=== PATIENT | male | born 1935 | race Caucasian/White ===

== ENCOUNTER → 2017-04-24 09:39 | Outpatient (CLI) | payer MEDICARE, SELFPAY ==
[2017-04-24 12:22] LABS: Absolute Lymphocyte Count 0.87 X10^3/ul (0.83-4.51); Absolute Neutrophil Count 4.2 X10^3/uL (2.0-7.7); Basophil# 0.01 X10^3/uL; Basophil% 0.2 % (0-1); Eosinophil# 0.16 X10^3/uL; Eosinophils% 2.7 % (0-5); Hematocrit 38.9 % (40-54); Hemoglobin 12.1 g/dl (13.0-16.5); Lymphocyte # 0.87 X10^3/ul (4.0); Lymphocyte % 14.5 % (19-41); Mean Corp Hgb Conc 31.1 g/gl (32-36); Mean Corpuscular Hgb 29.7 pg (27.0-32.0); Mean Corpuscular Volume 95.6 fL (80-94); Mean Platelet Vol. 9.6 fl (6.2-12.0); Monocyte% 13.3 % (0-10); Neutrophil # 4.15 X10^3/uL (2.7-7.7); Neutrophil % 69.1 % (47-70); Platelet Count 188 K/mm3 (150-450); RBC Distribution Width CV 14.6 % (11.6-14.6); RBC Distribution Width SD 50.8 fl (35.1-43.9); Red Blood Count 4.07 M/mm3 (4.6-6.2)
[2017-04-24 12:33] LABS: POSITIVE COUNT NO; POSITIVE DIFFERENTIAL NO; POSITIVE MORPHOLOGY NO
[2017-04-24 12:57] LABS: Anion Gap 7 (5-15); BUN 20 mg/dL (7-18); BUN/Creat Ratio 17.9 RATIO (10-20); Calcium,Total 8.8 mg/dL (8.5-10.1); Chloride 100 mmol/L (98-107); Creatinine, Serum 1.12 mg/dL (0.70-1.30); EST Glomerular Filtration Rate 67 mL/min (>60); Est Glom Filt Rate - Afr Amer 81 mL/min (>60); Glucose 66 mg/dL (74-106); Potassium 3.6 mmol/L (3.5-5.1); Sodium Level 138 mmol/L (136-145); Thyroid Stim Hormone (TSH) 1.42 uIU/mL (0.358-3.74)
== END ==
PROVIDERS: Family Provider Family Medicine; PCP Family Medicine; Visit Provider Family Medicine
DX: I10 Essential (primary) hypertension (principal); K51.00 Ulcerative (chronic) pancolitis without complications
CPT/HCPCS: 36415; 80048; 84443; 85025

== ENCOUNTER → 2017-10-30 09:38 | Outpatient (CLI) | payer MEDICARE, SELFPAY ==
[2017-10-30 12:30] LABS: Anion Gap 8 (5-15); BUN 17 mg/dL (7-18); Calcium,Total 8.8 mg/dL (8.5-10.1); Chloride 103 mmol/L (98-107); Creatinine, Serum 1.06 mg/dL (0.70-1.30); EST Glomerular Filtration Rate 71 mL/min (>60); Est Glom Filt Rate - Afr Amer 86 mL/min (>60); Glucose 80 mg/dL (74-106); Sodium Level 139 mmol/L (136-145)
== END ==
PROVIDERS: Family Provider Family Medicine; PCP Family Medicine; Visit Provider Family Medicine
DX: I10 Essential (primary) hypertension (principal)
CPT/HCPCS: 36415; 80048

== ENCOUNTER 2018-10-16 12:22 | Emergency (ER) | payer MEDICARE, SELFPAY ==
[2018-10-16 12:23] VITALS: BP 145/91; PULSE 86; RESP 30; TEMP 36.4; O2SAT 98; BMI 25.1
--- NOTE | 2018-10-16 12:33 | RAD_ITS ---
STUDY: X-RAY - UNILATERAL RIBS ( RIGHT ) WITH CHEST REASON FOR EXAM: Male, 83 years old. Anterior right chest pain following a recent fall. TECHNIQUE - RIBS: 4 view(s) of the ribs. TECHNIQUE - CHEST: Single PA view of the chest. COMPARISON: None. FINDINGS - RIBS: Normal visualized ribs without a demonstrated fracture. FINDINGS - CHEST: The lungs are clear and expanded. There is no demonstrated pleural abnormality. Normal size heart. There are calcified mediastinal lymph nodes. Normal visualized pulmonary arteries. There is atherosclerotic calcification of the aortic arch with tortuosity. There are diffuse degenerative changes of the visualized thoracic spine. Dextroscoliosis. There is degenerative osteoarthritis of the bilateral shoulders. There is no demonstrated abnormality of the visualized soft tissue structures of the upper abdomen. RAD/Ribs Uni Min 3V w/PA Chest IMPRESSION: RIBS: Normal x-ray examination of the ribs. CHEST: No acute abnormality is seen. Electronically Signed: Morgan Alejandra, at 13:28 EDT , Service support ,
--- NOTE | 2018-10-16 12:49 | ED.VIS.GEN ---
History of Present Illness Chief Complaint: Chest Other Informant: Patient Onset: Yesterday Context: Sudden Onset Timing: Intermittent Current Severity: Moderate Maximum Severity: Moderate Narrative: The patient presents to the emergency department chest wall injury. The patient was in his normal state of health. He states that yesterday, he was riding his lawnmower. He states that he lurched forward and struck his right anterior lateral chest against the wheel. He states he had some mild pain at the time. Overnight, the pain got worse. He states if he does not twist, he has no pain. Sometimes when he tries to take a deep breath, he will have pain. He states as long as he is not moving, he is pain-free. He did not strike his head. He denies other injury. The patient is otherwise been in his normal state of health. Prior similar symptoms: No Recent Illness/Hospitalization: No Past Medical History - Allergies and Home Meds Allergies/Adverse Reactions: Allergies No Known Allergies Allergy (Verified 10/16/18 12:23) Primary Care Physician: Reyna Hoff MD [Primary Care Provider] - Prior records reviewed: Yes Past Medical History: - Surgical History: appendectomy, colectomy - Colectomy w/ ileostomy., total hip arthroplasty, tonsillectomy Smoking Status: Never smoker - Family History Maternal Family History: Reports: No pertinent history Paternal Family History: Reports: No pertinent history Review of Systems General: Denies: Chills, Fever, Sweats Eyes: Denies: Visual changes - bilaterally, Diplopia ENT: Denies: Rhinorrhea, Sore throat Cardiovascular: Reports: Chest pain. Denies: Palpitations Respiratory: Denies: Dyspnea, Cough, Dyspnea on exertion Gastrointestinal: Denies: Abdominal pain, Nausea, Vomiting, Diarrhea, Melena, Hematochezia Genitourinary: Denies: Dysuria, Hematuria, Frequency Musculoskeletal: Denies: Back pain, Extremity Pain Skin: Denies: Rash, Wounds Neurological: Denies: Headache, Weakness, Numbness Physical Exam Vital Signs/Narrative: Vital Signs Temp Pulse Resp BP Pulse Ox 10/16/18 12:23 97.5 F L 86 30 H 145/91 H 98 Inital Vital Signs reviewed: Yes General: Well nourished, Well developed, No Acute Distress Head: Normocephalic, Atraumatic Eyes: Perrl, EOMI ENT: Moist mucous membranes, No rhinorrhea Neck: Supple, Nontender Cardiovascular: Regular rate, Regular rhythm, No murmurs Respiratory: No distress, CTA bilaterally, Chest nontender Abdomen: Soft, Nontender, Nondistended, Normal bowel sounds Back: Nontender, Normal Inspection Extremities: Nontender, No edema Skin: Normal color, No rash Neurological: Alert, Oriented x3, Cranial nerves II-XII grossly intact, Normal Strength, Normal Sensation Psychological: Normal affect, Normal Mood Diagnostic/Tx/Re-eval Clinical Impression(s) from Imaging Studies Ribs w/Chest X-Ray 10/16/18 12:33 IMPRESSION: RIBS: Normal x-ray examination of the ribs. CHEST: No acute abnormality is seen. Electronically Signed: Morgan Justyn, at 13:28 EDT , Service support , - Medical Decision Making The patient's pain is mostly only when he moves. There is no pleuritic component to it. He is been taking Tylenol with some improvement. His chest wall shows no contusion, step-off and there is no crepitus. I did obtain plain films. There is no evidence of rib fracture or pneumothorax. On reevaluation, the patient is resting comfortably. He will continue Tylenol at home. He was counseled concerning symptoms and reasons to return. He will be discharged home. Impression 1. Chest wall contusion ED Disposition - Plan for ED Patient: Instructions: Chest Wall Contusion Referrals: Reyna Hoff MD [Primary Care Provider] -
== END 2018-10-16 13:48 | disposition home or self-care (01) ==
LOC: ED 12:54
PROVIDERS: Emergency Provider Emergency Medicine; Family Provider Family Medicine; PCP Family Medicine
DX: S20.211A Contusion of right front wall of thorax, initial encounter (principal); W22.8XXA Striking against or struck by other objects, initial encounter; Y93.I9 Activity, other involving external motion
CPT/HCPCS: 71101; 99282

== ENCOUNTER → 2018-10-30 10:29 | Outpatient (CLI) | payer MEDICARE, SELFPAY ==
[2018-10-16 12:23] VITALS: BMI 25.1
[2018-10-30 12:42] LABS: Anion Gap 5 (5-15); BUN 19 mg/dL (7-18); BUN/Creat Ratio 11.5 RATIO (10-20); Calcium,Total 8.5 mg/dL (8.5-10.1); Chloride 102 mmol/L (98-107); Cholesterol 139 mg/dL (200); Creatinine, Serum 1.65 mg/dL (0.70-1.30); EST Glomerular Filtration Rate 43 mL/min (>60); Est Glom Filt Rate - Afr Amer 51 mL/min (>60); Glucose 93 mg/dL (74-106); High Density Lipoprotein 54 mg/dL; Potassium 4.1 mmol/L (3.5-5.1); Sodium Level 135 mmol/L (136-145); Triglycerides 115 mg/dL; Very Low Density Lipoprotein 23 mg/dL (5-40)
== END ==
PROVIDERS: Family Provider Family Medicine; PCP Family Medicine; Referring Provider Family Medicine; Visit Provider Family Medicine
DX: I10 Essential (primary) hypertension (principal)
CPT/HCPCS: 36415; 80048; 80061

== ENCOUNTER → 2019-11-06 10:31 | Outpatient (CLI) | payer MEDICARE, SELFPAY ==
[2019-11-06 12:47] LABS: Anion Gap 4 (5-15); BUN 23 mg/dL (7-18); BUN/Creat Ratio 12.5 RATIO (10-20); Calcium,Total 8.7 mg/dL (8.5-10.1); Chloride 106 mmol/L (98-107); Cholesterol 161 mg/dL (200); Creatinine, Serum 1.84 mg/dL (0.70-1.30); EST Glomerular Filtration Rate 37 mL/min (>60); Est Glom Filt Rate - Afr Amer 45 mL/min (>60); Glucose 71 mg/dL (74-106); High Density Lipoprotein 60 mg/dL; Potassium 3.9 mmol/L (3.5-5.1); Sodium Level 138 mmol/L (136-145); Triglycerides 123 mg/dL; Very Low Density Lipoprotein 25 mg/dL (5-40)
== END ==
PROVIDERS: PCP Family Medicine; Referring Provider Family Medicine; Visit Provider Family Medicine
DX: I10 Essential (primary) hypertension (principal)
CPT/HCPCS: 36415; 80048; 80061

== ENCOUNTER 2019-12-26 10:43 | Inpatient (IN) | payer MEDICARE, SELFPAY ==
[2019-12-26] VITALS (8 sets, daily range): BP systolic 128–143; BP diastolic 65–81; PULSE 57–78; RESP 16–18; TEMP 36.2–36.7; O2SAT 96–99; BMI 24.4; BMI 22.8
--- NOTE | 2019-12-26 11:09 | ED.VISSUMM ---
- ER Visit Summary Date of Service: 12/26/19 Chief Complaint: Right flank pain History of Present Illness: The patient is a 84 M who presents with right flank pain that began yesterday. Patient states that this began rather suddenly. Patient states this feels similar to prior kidney stones. Patient states that he has had decreased urine output since last night as well. Patient describes his pain as cramping in his right flank and fullness in the suprapubic area. Patient states nothing makes it better or worse. Patient denies any dysuria or hematuria. Patient denies any fevers or chills. Patient admits to nausea but denies any vomiting. Physical Examination: Vital signs are stable. Patient is afebrile. Patient is in no acute distress. Oral mucosa is pink and moist. Neck is supple. Trachea is midline. There is no JVD noted. Heart was regular rate and rhythm. Lungs are clear and equal bilaterally. Abdomen is soft. Bowel sounds are normal. There is no tenderness. There is no rebound or guarding noted. There is some mild right CVA tenderness. Skin is warm dry. Cranial nerves II through XII are intact. There are no focal motor or sensory deficits noted. Extremities are intact. There is no calf tenderness or edema. Test Results: CBC shows a mild anemia with a hemoglobin of 11.9 hematocrit 37.6 basic metabolic profile showed an elevated BUN of 46 and a creatinine of 4.18. These were markedly increased from previous results. Urinalysis does not show any evidence of urinary tract infection. CT scan of the abdomen pelvis was obtained. There are multiple stones noted in the bladder. There are also stones noted in the inferior pole of the right kidney. There is right hydronephrosis. This was interpreted by the radiologist and reviewed by myself. Emergency Department Course and Treatment: Patient was given IV fluids, Zofran, and morphine. Patient was feeling better on reevaluation. Given the increase of his BUN and creatinine, the case was discussed with the hospitalist. Patient will be admitted for acute kidney injury. Patient understood and was agreeable with the plan. All questions were answered. Disposition: Admit to hospital Impression: 1. Acute kidney injury 2. Renal calculi This note was generated with [employer] software. It may contain incorrect words, spelling, and punctuation that were not noted in review of the chart prior to signing ED Disposition - Plan for ED Patient: Disposition: Acute Care Hospital [facility] Diagnosis: Acute kidney injury, Renal calculi Referrals: Reyna Hoff MD [Primary Care Provider] -
[2019-12-26] MEDS: Ondansetron 4 MG/2 ML Vial IV (11:32)
[2019-12-26] MEDS: Morphine 4 MG/ML Syringe IV (11:32)
[2019-12-26 12:00] LABS: Absolute Lymphocyte Count 0.63 X10^3/uL (0.83-4.51); Absolute Neutrophil Count 7.6 X10^3/uL (2.0-7.7); Eosinophil# 0.06 X10^3/uL; Eosinophils% 0.7 % (0-5); Hematocrit 37.6 % (40-54); Hemoglobin 11.9 g/dL (13.0-16.5); Lymphocyte # 0.63 X10^3/ul (4.0); Lymphocyte % 6.8 % (19-41); Mean Corp Hgb Conc 31.6 g/dL (32-36); Mean Corpuscular Hgb 31.4 pg (27.0-32.0); Mean Corpuscular Volume 99.2 fL (80-94); Mean Platelet Vol. 9.6 fl (6.2-12.0); Monocyte# 0.86 X10^3/uL; Monocyte% 9.3 % (0-10); NRBC Flagged by Analyzer 0 % (0-5); Neutrophil # 7.61 X10^3/uL (2.7-7.7); Neutrophil % 82.8 % (47-70); Platelet Count 158 K/mm3 (150-450); RBC Distribution Width SD 50.9 fl (35.1-43.9); Red Blood Count 3.79 M/mm3 (4.6-6.2); White Blood Count 9.2 K/mm3 (4.4-11.0)
[2019-12-26 12:17] LABS: ALB/GLOB Ratio 0.7 RATIO (0.9-2.4); AST(SGOT) 17 U/L (15-37); Alanine Aminotransfer ALT/SGPT 19 U/L (16-61); Albumin, Serum 3.5 g/dL (3.2-5.0); Alkaline Phosphatase 92 U/L (45-117); Anion Gap 4 (5-15); BUN 46 mg/dL (7-18); Calcium,Total 8.8 mg/dL (8.5-10.1); Chloride 110 mmol/L (98-107); Creatinine, Serum 4.18 mg/dL (0.70-1.30); EST Glomerular Filtration Rate 15 mL/min (>60); Est Glom Filt Rate - Afr Amer 18 mL/min (>60); Estimated Creatinine Clearance 14.01 ml/min; Glucose 104 mg/dL (74-106); Lipase 68 U/L (73-393); Potassium 4.9 mmol/L (3.5-5.1); Protein, Total 8.5 g/dL (6.4-8.2); Sodium Level 138 mmol/L (136-145)
--- NOTE | 2019-12-26 12:22 | CT_ITS ---
STUDY: CT ABDOMEN AND PELVIS WITHOUT CONTRAST REASON FOR EXAM: Male, 84 years old. RT SIDED FLANK PAIN WITH DECREASED URINATION RADIATION DOSAGE (If Supplied By Facility): CTDIvol = ( 8.11 ) mGy, DLP = ( 376.92 ) mGycm TECHNIQUE: Transaxial images were obtained from the dome of the diaphragm to the symphysis pubis without oral contrast, and without intravenous contrast. Sagittal and coronal images were reconstructed. Individualized dose optimization techniques were used for this CT. COMPARISON: Comparison is made with prior study dated 10/10/2014. FINDINGS: Calcified granuloma in the right lower lobe. Calcification of the mitral valve annulus. Normal liver. Normal gallbladder and extrahepatic biliary system. There are multiple benign calcified granulomata of the spleen. Normal pancreas. Normal bilateral adrenal glands. Moderate degree of right hydronephrosis with congestion of the right kidney. Nonobstructive calculi are seen in the mid posterior pole calyces of the right kidney. Multiple calculi are seen at the base of the bladder. There is moderate cortical atrophy of the left kidney, consistent with chronic medical renal disease. Moderate degree of left hydronephrosis. Normal visualized stomach. Normal small intestine. A colostomy is seen in the right lower quadrant. Stable postoperative changes in the presacral soft tissues. There is non-visualization of the appendix. There is diffuse atherosclerotic calcification of the abdominal aorta and its major visceral branches, without a demonstrated aneurysm. Normal inferior vena cava. There is retroperitoneal lymphadenopathy with enlarged nodes greater than 10-15mm in the short axis. Questionable soft tissue mass surrounding the left common iliac artery. Adenopathy should be ruled out. Multiple calculi are seen at the base of the bladder. There is a left-sided inguinal hernia containing adipose tissue. There are diffuse degenerative changes of the visualized lumbar spine. Levoscoliosis. Prior right total hip preplacement. CT/Abdomen/Pelvis without Cont IMPRESSION: Multiple calculi are seen at the base of the bladder. Atrophy of the left kidney. Bilateral hydronephrosis. Multiple nonobstructive calculi are seen in the right renal calyces. Status post colostomy and right lower quadrant. Retroperitoneal lymphadenopathy. Electronically Signed: Morgan Alejandra, at 12:45 EST , Service support ,
[2019-12-26 15:36] LABS: Bacteria 0 SEEN /hpf (None Seen); Mucous, Urine 0 SEEN /hpf (<or=2+)
[2019-12-26 15:40] LABS: Glucose, Dipstick Normal (Normal); Ketone-Dipstick Negative (Negative); Leukocyte Esterase-Dipstick 100 /ul (Negative); Nitrite-Dipstick Negative (Negative); Occult Blood-Urine 250 /ul (Negative); Protein-Dipstick 100 mg/dl (Negative); Urine Bilirubin Dipstick Negative (Negative); Urine Clarity Cloudy (Clear); Urine Urobilinogen Normal (Normal)
[2019-12-26 15:43] LABS: Color, Urine SEE COMMENT BELOW (Yellow)
[2019-12-26 15:56] LABS: Red Blood Cells-Urine > 100 SEEN /hpf (0-5); Squamous Epithelial Cells - UA 0-5 SEEN /hpf (0-5); White Blood Cells 0-5 SEEN /hpf (0-5)
--- NOTE | 2019-12-26 16:47 | HP.PCM_ITS ---
<Cherry Fraire [employer] - Last Filed: 12/26/19 17:22> Problem List (1) Acute kidney injury Status: Acute (2) Renal calculi Status: Acute (3) Ulcerative colitis Status: Chronic (4) Hypertension Status: Chronic History of Present Illness Date of Admission: 12/26/19 Chief Complaint: Flank pain, difficulty emptying bladder. The patient is a 84 year old M who presents emergency room due to right flank pain and difficulty emptying her bladder. Patient states this began last night around 9 PM. He states he would begin to void and it would suddenly stop. He also reports right-sided flank pain and nausea without emesis. Denies fever, chills. Denies dysuria. Denies history of difficulty voiding. Denies history of kidney stones. He has a past medical history of ulcerative colitis status post colectomy, hypertension. He denies upper respiratory symptoms or other recent illness. Past Medical History Past Medical History (Chronic Problems): Chronic Problems Ulcerative colitis (Chronic) Hypertension (Chronic) Allergies No Known Allergies Allergy (Verified 12/26/19 10:44) Home Medications: Ambulatory Orders Medication Instructions Recorded Verapamil HCl [Verapamil ER] 180 mg PO DAILY 05/30/14 Aspirin [Adult Aspirin Regimen] 91 mg PO DAILY 10/16/18 Surgical History: appendectomy, colectomy - Colectomy w/ ileostomy., total hip arthroplasty - Right, tonsillectomy, - - Hernia repair Psychiatric History: No pertinent psych hx Lives: Spouse/ Significant Other Smoking Status: Never smoker Alcohol: None Drugs: None - *Family History Maternal History Items: - - Denies known maternal medical history. Reports she lived into her 90s. Paternal History Items: - - Denies known paternal medical history reports he lived into his 90s. Review of Systems Constitutional: Denies: Chills, Fever, Weight Change HEENT: Denies: Head Aches, Sinus Congestion, Sinus Drainage Cardiovascular: Denies: Chest Pain, Palpitations Respiratory: Denies: Cough, Shortness of breath at rest, Sputum production Gastrointestinal: Reports: - - Colostomy in place. Denies: Abdominal Pain, Nausea, Vomiting Genitourinary: Reports: - - Incomplete bladder emptying. Denies: Dysuria, Hematuria, Incontinence, Urgency Musculoskeletal: Reports: - - Right flank pain. Denies: Joint Pain, Joint Tenderness Skin: Denies: Rash, Wounds Neurological: Denies: Numbness, Tingling, Focal weakness Psychiatric: Denies: Anxiety, Depression, Homicidal Ideations, Suicidal Ideations Hematologic/ Lymphatic: Denies: Easy Bruising, Easy Bleeding VTE Information - Inpt Only VTE Present on Admission: No VTE Mechan Device Prophylaxis: None VTE Pharm Prophylaxis ordered?: Yes Patient Problems: Active and Suspected Problems Acute kidney injury (Acute) Renal calculi (Acute) Bladder stones (Acute) - Physical Exam Vitals/I&O's: Vital Signs Temp Pulse Resp BP Pulse Ox 97.1 F L 72 16 138/81 H 98 12/26/19 10:46 12/26/19 15:15 12/26/19 15:15 12/26/19 15:15 12/26/19 15:15 Oxygen Delivery Method Room Air Weight: 175 lb Body Mass Index (BMI) 24.4 Intake and Output for Last 24 Hours 12/24/19 12/25/19 12/26/19 23:59 23:59 23:59 Intake Total 500 / 500 Balance 500 / 500 General: Alert, Oriented x3, Cooperative HEENT: Atraumatic, PERRLA, EOMI, Normocephalic Neck: Supple, No JVD, Negative Carotid Bruits Lungs: Clear to auscultation, Normal air movement Cardiovascular: Regular rate, No murmurs Abdomen: Bowel Sounds Present, Soft, Non Tender, Non-Distended, - - right flank tenderness Extremities: No clubbing, No cyanosis, No edema, Capillary Refill Less than 3 Seconds Skin: No rashes, No breakdown Musculoskeletal: No Tenderness to Palpation of Joints or Extremities Neurological: Cranial nerves II-XII grossly intact, Neuro grossly intact Psych/Mental Status: Normal Affect, Appropriate Laboratory Results 12/26/19 11:50: WBC 9.2, RBC 3.79 L, Hgb 11.9 L, Hct 37.6 L, MCV 99.2 H, MCH 31.4, MCHC 31.6 L, RDW Std Deviation 50.9 H, RDW Coeff of Jeremiah 14.0, Plt Count 158, MPV 9.6, Immature Gran % (Auto) 0.400, Neut % (Auto) 82.8 H, Lymph % (Auto) 6.8 L, [place] % (Auto) 9.3, Eos % (Auto) 0.7, Baso % (Auto) 0.0, Absolute Neuts (auto) 7.6, Absolute Lymphs (auto) 0.63 L, Nucleated RBC % 0 12/26/19 11:50: Sodium 138, Potassium 4.9, Chloride 110 H, Carbon Dioxide 24.0, Anion Gap 4 L, BUN 46 H, Creatinine 4.18 H, Estim Creat Clear Calc 14.01, Est GFR (MDRD) Af Amer 18 L, Est GFR (MDRD) Non-Af 15 L, BUN/Creatinine Ratio 11.0, Glucose 104, Calcium 8.8, Total Bilirubin 0.60, AST 17, ALT 19, Alkaline Phosphatase 92, Total Protein 8.5 H, Albumin 3.5, Globulin 5.0 H, Albumin/Globulin Ratio 0.7 L, Lipase 68 L 12/26/19 15:30: Urine Color SEE COMMENT BELOW, Urine Clarity Cloudy, Urine pH 5.0, Ur Specific [place] 1.010, Urine Protein 100 H, Urine Glucose (UA) Normal, Urine Ketones Negative, Urine Occult Blood 250 H, Urine Nitrite Negative, Urine Bilirubin Negative, Urine Urobilinogen Normal, Ur Leukocyte Esterase 100 H, Urine RBC > 100 SEEN, Urine WBC 0-5 SEEN, Ur Squamous Epith Cells 0-5 SEEN, Urine Bacteria 0 SEEN, Urine Mucus 0 SEEN Assessment/Plan All Active Problems Acute kidney injury (Acute) Renal calculi (Acute) Bladder stones (Acute) 1. Acute kidney injury suspect post renal secondary to renal calculi resulting in bilateral hydronephrosis-CT reports multiple stones in the bladder as well. UA unremarkable. IV fluids. As needed pain regimen. Trend BMP. Consult urology. 2. Retroperitoneal lymphadenopathy/questionable soft tissue mass left common iliac artery-noted on CT. Recommend outpatient follow-up for further evaluation/surveillance. 3. Ulcerative colitis status post colectomy-colostomy in place. 4. Hypertension-continue verapamil regimen. DVT prophylaxis-heparin subcu This patient was seen by JUAN RAMON Nayak under the supervision of Dr. Evans. <Betty Evans - Last Filed: 12/26/19 19:07> History of Present Illness The patient is a 84 year old M [] Past Medical History Allergies No Known Allergies Allergy (Verified 12/26/19 10:44) - Physical Exam Vitals/I&O's: Vital Signs Temp Pulse Resp BP Pulse Ox 98.1 F 73 18 140/71 H 99 12/26/19 17:59 12/26/19 18:15 12/26/19 17:59 12/26/19 17:59 12/26/19 17:59 Oxygen Delivery Method Room Air Weight: 164 lb 3.2 oz Body Mass Index (BMI) 22.8 Intake and Output for Last 24 Hours 12/24/19 12/25/19 12/26/19 23:59 23:59 23:59 Intake Total 500 / 500 Balance 500 / 500 Laboratory Results 12/26/19 11:50: WBC 9.2, RBC 3.79 L, Hgb 11.9 L, Hct 37.6 L, MCV 99.2 H, MCH 31.4, MCHC 31.6 L, RDW Std Deviation 50.9 H, RDW Coeff of Jeremiah 14.0, Plt Count 158, MPV 9.6, Immature Gran % (Auto) 0.400, Neut % (Auto) 82.8 H, Lymph % (Auto) 6.8 L, [place] % (Auto) 9.3, Eos % (Auto) 0.7, Baso % (Auto) 0.0, Absolute Neuts (auto) 7.6, Absolute Lymphs (auto) 0.63 L, Nucleated RBC % 0 12/26/19 11:50: Sodium 138, Potassium 4.9, Chloride 110 H, Carbon Dioxide 24.0, Anion Gap 4 L, BUN 46 H, Creatinine 4.18 H, Estim Creat Clear Calc 14.01, Est GFR (MDRD) Af Amer 18 L, Est GFR (MDRD) Non-Af 15 L, BUN/Creatinine Ratio 11.0, Glucose 104, Calcium 8.8, Total Bilirubin 0.60, AST 17, ALT 19, Alkaline Phosphatase 92, Total Protein 8.5 H, Albumin 3.5, Globulin 5.0 H, Al bumin/Globulin Ratio 0.7 L, Lipase 68 L 12/26/19 15:30: Urine Color SEE COMMENT BELOW, Urine Clarity Cloudy, Urine pH 5.0, Ur Specific [place] 1.010, Urine Protein 100 H, Urine Glucose (UA) Normal, Urine Ketones Negative, Urine Occult Blood 250 H, Urine Nitrite Negative, Urine Bilirubin Negative, Urine Urobilinogen Normal, Ur Leukocyte Esterase 100 H, Urine RBC > 100 SEEN, Urine WBC 0-5 SEEN, Ur Squamous Epith Cells 0-5 SEEN, Urine Bacteria 0 SEEN, Urine Mucus 0 SEEN Current Medications Acetaminophen (Acetaminophen 325 Mg Tablet) 650 mg PO Q6H PRN PRN PRN Reason: Pain Score 1-10/Temp > 100.7 F Sodium Chloride () 1,000 mls @ 125 mls/hr IV .Q8H [facility] Last Admin: 12/26/19 18:28 Dose: 125 mls/hr Documented by: Morphine Sulfate (Morphine 2 Mg/Ml Syringe) 2 mg IV Q3H PRN PRN PRN Reason: Pain Score 6-10 Ondansetron HCl (Ondansetron 4 Mg/2 Ml Vial) 4 mg IV Q8H PRN PRN PRN Reason: NAUSEA/VOMITING Oxycodone HCl (Oxycodone 5 Mg Tablet) 5 mg PO Q4H PRN PRN PRN Reason: Pain Score 4-5 Verapamil HCl (Verapamil Sr 180 Mg Capsule) 180 mg PO DAILY [facility] Assessment/Plan Patient seen by Cherry Fraire NP-see under my supervision Patient is an 84-year-old male admitted through the ED on 12/26/2019 with a complaint of right flank pain which started the night before admission. He also had difficulty emptying his bladder. He also had associated nausea but no vomiting and denied any fever or chills or dysuria though he said when he came into the ED, he started having dysuria. He also had difficulty emptying his bladder. He has never had a history of kidney stones. He does have a past medical history of ulcerative colitis s/p colectomy with a colostomy bag as well as hypertension. Review of stems otherwise negative. In the ED, vitals showed temperature of 97.1 with blood pressure 140/71, pulse rate of 73 and respiratory rate of 18. He was saturating at 99% on room air. Chemistry showed creatinine of 4.18 with a baseline creatinine of 1.84; lactic acid was 68. CBC showed hemoglobin of 11.9 with WBC of 9.2 and platelets of 158. ET of the abdomen and pelvis showed multiple calculi seen at the base of the bladder and a tropia of the left kidney with bilateral hydronephrosis and multiple nonobstruc tive calculi seen in the right renal calyces and retroperitoneal lymphadenopathy. He has been admitted to be managed for HENOK on CKD stage III and bilateral hydronephrosis likely due to kidney stones. O/E: Vital Signs Temp Pulse Resp BP Pulse Ox 98.1 F 73 18 140/71 H 99 12/26/19 17:59 12/26/19 18:15 12/26/19 17:59 12/26/19 17:59 12/26/19 17:59 General: Alert, Oriented x3, Cooperative HEENT: Atraumatic, PERRLA, EOMI, Normocephalic Neck: Supple, No JVD, Negative Carotid Bruits Lungs: Clear to auscultation, Normal air movement Cardiovascular: Regular rate, No murmurs Abdomen: Bowel Sounds Present, Soft, Non Tender, Non-Distended, - - no CVA tenderness, Extremities: No clubbing, No cyanosis, No edema, Capillary Refill Less than 3 Seconds Skin: No rashes, No breakdown Musculoskeletal: No Tenderness to Palpation of Joints or Extremities Neurological: Cranial nerves II-XII grossly intact, Neuro grossly intact Psych/Mental Status: Normal Affect, Appropriate Plan is to hydrate with IV fluids for HENOK on CKD. Consult urology. IV morphine as needed. IV Zofran as needed urology consulted. If creatinine does not trend down, will consult nephrology. HENOK on CKD stage III is post renal from obstructive uropathy. Per urology, for cystoscopy tomorrow with laser of bladder stone, ureteroscopy and possible prostate or bladder surgery. Rest as per Cherry Fraire NP-C's notes which I reviewed and endorsed. Inpatient E&M: 16166 Init Hosp L3
--- NOTE | 2019-12-26 18:27 | PCM.CONS.U ---
Problem List (1) Acute kidney injury Status: Acute (2) Bladder stones Status: Acute Reason for Consult Date of Consultation: 12/26/19 Reason for Consultation: bladder stones retention. History of Present Illness: The patient is a 84 year old M who presents emergency room due to right flank pain and difficulty emptying her bladder. Patient states this began last night around 9 PM. He states he would begin to void and it would suddenly stop. He also reports right-sided flank pain and nausea without emesis. Denies fever, chills. Denies dysuria. Denies history of difficulty voiding. Denies history of kidney stones. He has a past medical history of ulcerative colitis status post colectomy, hypertension. He denies upper respiratory symptoms or other recent illness. Past Medical History Past Medical History (Chronic Problems): Chronic Problems Ulcerative colitis (Chronic) Hypertension (Chronic) Allergies No Known Allergies Allergy (Verified 12/26/19 10:44) Home Medications: Ambulatory Orders Medication Instructions Recorded Verapamil HCl [Verapamil ER] 180 mg PO DAILY 05/30/14 Aspirin [Adult Aspirin Regimen] 91 mg PO DAILY 10/16/18 Surgical History: appendectomy, colectomy - Colectomy w/ ileostomy., total hip arthroplasty - Right, tonsillectomy, - - Hernia repair Psychiatric History: No pertinent psych hx Lives: Spouse/ Significant Other Smoking Status: Never smoker Alcohol: None Drugs: None - *Family History Maternal History Items: - - Denies known maternal medical history. Reports she lived into her 90s. Paternal History Items: - - Denies known paternal medical history reports he lived into his 90s. Review of Systems Constitutional: Denies: Chills, Fever, Weight Change HEENT: Denies: Head Aches, Sinus Congestion, Sinus Drainage Cardiovascular: Denies: Chest Pain, Palpitations Respiratory: Denies: Cough, Shortness of breath at rest, Sputum production Gastrointestinal: Denies: Abdominal Pain, Nausea, Vomiting Genitourinary: Denies: Dysuria Musculoskeletal: Denies: Joint Pain, Joint Tenderness Skin: Denies: Rash, Wounds Neurological: Denies: Numbness, Tingling, Focal weakness Psychiatric: Denies: Anxiety, Depression, Homicidal Ideations, Suicidal Ideations Hematologic/ Lymphatic: Denies: Easy Bruising, Easy Bleeding Physical Exam - Physical Exam Vital Signs Temp 98.1 F 12/26/19 17:59 Pulse 73 12/26/19 17:59 Resp 18 12/26/19 17:59 BP 140/71 H 12/26/19 17:59 Pulse Ox 99 12/26/19 17:59 Intake & Output 12/24/19 12/25/19 12/26/19 23:59 23:59 23:59 Intake Total 500 / 500 Balance 500 / 500 Weight: 74.48 kg Intake: Intake, IV Amount 500 / 500 0.9% Normal Saline 500 ML @ 500 / 500 1000 mls/hr IV .Q30M [facility] Rx#: [id number] General: Alert, Oriented x3 HEENT: Atraumatic Oral: Moist Mucosa Neck: Supple Lungs: No rhonchi Cardiovascular: Regular Rhythm Abdomen: Soft Laboratory Tests Past 24 Hrs 12/26/19 12/26/19 12/26/19 11:50 11:50 15:30 WBC 9.2 RBC 3.79 L Hgb 11.9 L Hct 37.6 L MCV 99.2 H MCH 31.4 MCHC 31.6 L RDW Std Deviation 50.9 H RDW Coeff of Jeremiah 14.0 Plt Count 158 MPV 9.6 Immature Gran % (Auto) 0.400 Neut % (Auto) 82.8 H Lymph % (Auto) 6.8 L [place] % (Auto) 9.3 Eos % (Auto) 0.7 Baso % (Auto) 0.0 Absolute Neuts (auto) 7.6 Absolute Lymphs (auto) 0.63 L Nucleated RBC % 0 Sodium 138 Potassium 4.9 Chloride 110 H Carbon Dioxide 24.0 Anion Gap 4 L BUN 46 H Creatinine 4.18 H Estim Creat Clear Calc 14.01 Est GFR (MDRD) Af Amer 18 L Est GFR (MDRD) Non-Af 15 L BUN/Creatinine Ratio 11.0 Glucose 104 Calcium 8.8 Total Bilirubin 0.60 AST 17 ALT 19 Alkaline Phosphatase 92 Total Protein 8.5 H Albumin 3.5 Globulin 5.0 H Albumin/Globulin Ratio 0.7 L Lipase 68 L Urine Color SEE COMMENT BELOW Urine Clarity Cloudy Urine pH 5.0 Ur Specific [place] 1.010 Urine Protein 100 H Urine Glucose (UA) Normal Urine Ketones Negative Urine Occult Blood 250 H Urine Nitrite Negative Urine Bilirubin Negative Urine Urobilinogen Normal Ur Leukocyte Esterase 100 H Urine RBC > 100 SEEN Urine WBC 0-5 SEEN Ur Squamous Epith Cells 0-5 SEEN Urine Bacteria 0 SEEN Urine Mucus 0 SEEN Assessment/Plan All Active Problems Acute kidney injury (Acute) Renal calculi (Acute) Bladder stones (Acute) 84 yo male with bladder stone incomplete empying possible renal obstuction difficutlut to tell on CT scan plan for Surgery tomorrow for cysto laser bladder stone, ureteroscopy possible prostate or bladder surgery
[2019-12-26] MEDS: 0.9% Normal Saline 1,000 ML 125 ML IV (18:28)
[2019-12-26] MEDS: 0.9% Saline Lock 10 ML Syringe IV (18:28)
[2019-12-26] MEDS: oxyCODONE 5 MG Tablet PO (21:45)
[2019-12-27] VITALS (17 sets, daily range): BP systolic 117–146; BP diastolic 55–82; PULSE 66–85; RESP 14–20; TEMP 36.6–37.4; O2SAT 94–100; BMI 22.8; BMI 24.4
[2019-12-27] MEDS: 0.9% Normal Saline 1,000 ML 125 ML IV ×3 (02:13→17:10)
[2019-12-27] MEDS: Morphine 2 MG/ML Syringe IV ×2 (02:14→07:46)
[2019-12-27 07:44] LABS: Absolute Lymphocyte Count 0.78 X10^3/uL (0.83-4.51); Absolute Neutrophil Count 7.6 X10^3/uL (2.0-7.7); Basophil# 0.01 X10^3/uL; Basophil% 0.1 % (0-1); Eosinophil# 0.04 X10^3/uL; Eosinophils% 0.4 % (0-5); Hematocrit 35.5 % (40-54); Hemoglobin 10.8 g/dL (13.0-16.5); Lymphocyte # 0.78 X10^3/ul (4.0); Lymphocyte % 8.1 % (19-41); Mean Corp Hgb Conc 30.4 g/dL (32-36); Mean Corpuscular Hgb 30.8 pg (27.0-32.0); Mean Corpuscular Volume 101.1 fL (80-94); Mean Platelet Vol. 9.6 fl (6.2-12.0); Monocyte# 1.23 X10^3/uL; Monocyte% 12.7 % (0-10); NRBC Flagged by Analyzer 0 % (0-5); Neutrophil # 7.55 X10^3/uL (2.7-7.7); Neutrophil % 78.2 % (47-70); Platelet Count 138 K/mm3 (150-450); RBC Distribution Width CV 14.1 % (11.6-14.6); RBC Distribution Width SD 52.1 fl (35.1-43.9); Red Blood Count 3.51 M/mm3 (4.6-6.2); White Blood Count 9.7 K/mm3 (4.4-11.0)
[2019-12-27 07:57] LABS: Anion Gap 4 (5-15); BUN 54 mg/dL (7-18); BUN/Creat Ratio 9.8 RATIO (10-20); Calcium,Total 7.9 mg/dL (8.5-10.1); Chloride 110 mmol/L (98-107); Creatinine, Serum 5.49 mg/dL (0.70-1.30); EST Glomerular Filtration Rate 11 mL/min (>60); Est Glom Filt Rate - Afr Amer 13 mL/min (>60); Estimated Creatinine Clearance 10.55 ml/min; Glucose 112 mg/dL (74-106); Sodium Level 136 mmol/L (136-145)
--- NOTE | 2019-12-27 10:20 | CASEMGMT ---
RN PRAVEEN Face to Face with patient for initial transition planning/care coordination assessment. RN CM introduced self and role at [facility]. Patient lying in bed, alert and oriented. Patient willing to participate in assessment and is able to answer all questions appropriately. Care providers, pharmacy, and demographics verified. Patient wishes to discharge home, denies need for home health at this time. Patient states he has no further needs or concerns at this time. CM to follow for discharge planning needs that may arise. PCP: Luis Eduardo Specialists: none Preferred Pharmacy: [facility] Insurance: [facility] Prescription Benefit: yes Living Will/HPOA: none LNOK: Living Arrangements: Patient lives with in a 2 story home with bed and bath to enter the home. 4 steps to enter the home. Patient states he is independent Transportation: self/ DME/HHC: Patient states he has cane, walker, and nebulizer at home. Disposition Plan: Patient to discharge home with family support and follow-up plans in place. Alysha PATEL, RN, CM
--- NOTE | 2019-12-27 10:39 | PN_ITS ---
<JunoCherry GREEN JOBS TRAINER - Last Filed: 12/27/19 10:47> Patient Problems: Active and Suspected Problems Acute kidney injury (Acute) Renal calculi (Acute) Bladder stones (Acute) Subjective: Patient seen and examined. Reports continued intermittent difficulty emptying bladder. Continues to have intermittent right flank pain as well. Denies dysuria. Denies fever, chills. Denies nausea. Per urology note, plan for cystoscopy today with laser bladder stone. - Physical Exam Vitals/I&O's: Vital Signs Temp Pulse Resp BP Pulse Ox 97.8 F 67 18 117/62 97 12/27/19 09:50 12/27/19 09:50 12/27/19 09:50 12/27/19 09:50 12/27/19 09:50 Oxygen Delivery Method Room Air Weight: 164 lb 3.205 oz Body Mass Index (BMI) 22.8 Intake and Output for Last 24 Hours 12/25/19 12/26/19 12/27/19 23:59 23:59 23:59 Intake Total 500 / 1200 2618.75 / 2618.75 Output Total 875 / 875 Balance 500 / 750 1743.75 / 1743.75 General: Alert, Oriented x3, Cooperative HEENT: Atraumatic, PERRLA, EOMI, Normocephalic Neck: Supple, No JVD, Negative Carotid Bruits Lungs: Clear to auscultation, Normal air movement Cardiovascular: Regular rate, No murmurs Abdomen: Bowel Sounds Present, Soft, Non Tender, Non-Distended Extremities: No clubbing, No cyanosis, No edema, Capillary Refill Less than 3 Seconds Skin: No rashes, No breakdown Musculoskeletal: No Tenderness to Palpation of Joints or Extremities Neurological: Cranial nerves II-XII grossly intact, Neuro grossly intact Psych/Mental Status: Normal Affect, Appropriate Microbiology Past 72 Hours 12/27/19 07:50 Mucosa - Nose SARS-CoV-2 Antigen (Rapid) - Final Laboratory Results 12/26/19 11:50: WBC 9.2, RBC 3.79 L, Hgb 11.9 L, Hct 37.6 L, MCV 99.2 H, MCH 31.4, MCHC 31.6 L, RDW Std Deviation 50.9 H, RDW Coeff of Jeremiah 14.0, Plt Count 158, MPV 9.6, Immature Gran % (Auto) 0.400, Neut % (Auto) 82.8 H, Lymph % (Auto) 6.8 L, [place] % (Auto) 9.3, Eos % (Auto) 0.7, Baso % (Auto) 0.0, Absolute Neuts (auto) 7.6, Absolute Lymphs (auto) 0.63 L, Nucleated RBC % 0 12/26/19 11:50: Sodium 138, Potassium 4.9, Chloride 110 H, Carbon Dioxide 24.0, Anion Gap 4 L, BUN 46 H, Creatinine 4.18 H, Estim Creat Clear Calc 14.01, Est GFR (MDRD) Af Amer 18 L, Est GFR (MDRD) Non-Af 15 L, BUN/Creatinine Ratio 11.0, Glucose 104, Calcium 8.8, Total Bilirubin 0.60, AST 17, ALT 19, Alkaline Phosphatase 92, Total Protein 8.5 H, Albumin 3.5, Globulin 5.0 H, Albumin/Globulin Ratio 0.7 L, Lipase 68 L 12/26/19 15:30: Urine Color SEE COMMENT BELOW, Urine Clarity Cloudy, Urine pH 5.0, Ur Specific [place] 1.010, Urine Protein 100 H, Urine Glucose (UA) Normal, Urine Ketones Negative, Urine Occult Blood 250 H, Urine Nitrite Negative, Urine Bilirubin Negative, Urine Urobilinogen Normal, Ur Leukocyte Esterase 100 H, Urine RBC > 100 SEEN, Urine WBC 0-5 SEEN, Ur Squamous Epith Cells 0-5 SEEN, Urine Bacteria 0 SEEN, Urine Mucus 0 SEEN 12/27/19 07:33: WBC 9.7, RBC 3.51 L, Hgb 10.8 L, Hct 35.5 L, MCV 101.1 H, MCH 30.8, MCHC 30.4 L, RDW Std Deviation 52.1 H, RDW Coeff of Jeremiah 14.1, Plt Count 138 L, MPV 9.6, Immature Gran % (Auto) 0.500, Neut % (Auto) 78.2 H, Lymph % (Auto) 8.1 L, [place] % (Auto) 12.7 H, Eos % (Auto) 0.4, Baso % (Auto) 0.1, Absolute Neuts (auto) 7.6, Absolute Lymphs (auto) 0.78 L, Nucleated RBC % 0 12/27/19 07:33: Sodium 136, Potassium 5.0, Chloride 110 H, Carbon Dioxide 22.0, Anion Gap 4 L, BUN 54 H, Creatinine 5.49 H, Estim Creat Clear Calc 10.55, Est GFR (MDRD) Af Amer 13 L, Est GFR (MDRD) Non-Af 11 L, BUN/Creatinine Ratio 9.8 L, Glucose 112 H, Calcium 7.9 L Current Medications Acetaminophen (Acetaminophen 325 Mg Tablet) 650 mg PO Q6H PRN PRN PRN Reason: Pain Score 1-10/Temp > 100.7 F Sodium Chloride () 1,000 mls @ 125 mls/hr IV .Q8H [facility] Last Admin: 12/27/19 09:49 Dose: 125 mls/hr Documented by: Morphine Sulfate (Morphine 2 Mg/Ml Syringe) 2 mg IV Q3H PRN PRN PRN Reason: Pain Score 6-10 Last Admin: 12/27/19 07:46 Dose: 2 mg Documented by: Ondansetron HCl (Ondansetron 4 Mg/2 Ml Vial) 4 mg IV Q8H PRN PRN PRN Reason: NAUSEA/VOMITING Oxycodone HCl (Oxycodone 5 Mg Tablet) 5 mg PO Q4H PRN PRN PRN Reason: Pain Score 4-5 Last Admin: 12/26/19 21:45 Dose: 5 mg Documented by: Verapamil HCl (Verapamil Sr 180 Mg Capsule) 180 mg PO DAILY [facility] Medical Necessity - Tobacco Use Smoking Status: Never smoker Assessment/Plan All Active Problems Acute kidney injury (Acute) Renal calculi (Acute) Bladder stones (Acute) 1. Acute kidney injury, post renal/obstructive uropathy secondary to renal calculi/bladder stones resulting in bilateral hydronephrosis-CT reports multiple stones in the bladder as well. UA unremarkable. IV fluids. As needed pain regimen. Trend BMP. Urology consulted. Plan for cystoscopy with laser bladder stone, ureteroscopy and possible prostate or bladder surgery. Consult nephrology given worsening renal function. 2. Retroperitoneal lymphadenopathy/questionable soft tissue mass left common iliac artery-noted on CT. Recommend outpatient follow-up for further evaluation/surveillance. 3. Ulcerative colitis status post colectomy-colostomy in place. 4. Hypertension-continue verapamil regimen. DVT prophylaxis-SCDs This patient was seen by JUAN RAMON Nayak under the supervision of Dr. Christianson. <Eliceo Christianson F - Last Filed: 12/27/19 19:39> - Physical Exam Vitals/I&O's: Vital Signs Temp Pulse Resp BP Pulse Ox 98.3 F 68 16 121/73 H 97 12/27/19 18:05 12/27/19 18:05 12/27/19 19:18 12/27/19 18:05 12/27/19 18:05 Oxygen Flow Rate (L/min) 4 Oxygen Delivery Method Room Air Weight: 164 lb 3.205 oz Body Mass Index (BMI) 22.8 Intake and Output for Last 24 Hours 12/25/19 12/26/19 12/27/19 23:59 23:59 23:59 Intake Total 500 / 1200 4128.33 / 4128.33 Output Total 1999 / 1999 Balance 500 / 750 2128.33 / 2128.33 Microbiology Past 72 Hours 12/27/19 07:50 Mucosa - Nose SARS-CoV-2 Antigen (Rapid) - Final Laboratory Results 12/27/19 07:33: WBC 9.7, RBC 3.51 L, Hgb 10.8 L, Hct 35.5 L, MCV 101.1 H, MCH 30.8, MCHC 30.4 L, RDW Std Deviation 52.1 H, RDW Coeff of Jeremiah 14.1, Plt Count 138 L, MPV 9.6, Immature Gran % (Auto) 0.500, Neut % (Auto) 78.2 H, Lymph % (Auto) 8.1 L, [place] % (Auto) 12.7 H, Eos % (Auto) 0.4, Baso % (Auto) 0.1, Absolute Neuts (auto) 7.6, Absolute Lymphs (auto) 0.78 L, Nucleated RBC % 0 12/27/19 07:33: Sodium 136, Potassium 5.0, Chloride 110 H, Carbon Dioxide 22.0, Anion Gap 4 L, BUN 54 H, Creatinine 5.49 H, Estim Creat Clear Calc 10.55, Est GFR (MDRD) Af Amer 13 L, Est GFR (MDRD) Non-Af 11 L, BUN/Creatinine Ratio 9.8 L, Glucose 112 H, Calcium 7.9 L Current Medications Acetaminophen (Acetaminophen 325 Mg Tablet) 650 mg PO Q6H PRN PRN PRN Reason: Pain Score 1-10/Temp > 100.7 F Calamine/Phenol (Menthol/Lanolin/Calamine/Znox 113 Gm Tube) 1 applic TOPICAL TID [facility]; Protocol Last Admin: 12/27/19 16:06 Dose: 1 applicatio Documented by: Sodium Chloride () 1,000 mls @ 125 mls/hr IV .Q8H [facility] Last Infusion: 12/27/19 18:08 Dose: 125 mls/hr Documented by: Morphine Sulfate (Morphine 2 Mg/Ml Syringe) 2 mg IV Q3H PRN PRN PRN Reason: Pain Score 6-10 Last Admin: 12/27/19 07:46 Dose: 2 mg Documented by: Ondansetron HCl (Ondansetron 4 Mg/2 Ml Vial) 4 mg IV Q8H PRN PRN PRN Reason: NAUSEA/VOMITING Oxycodone HCl (Oxycodone 5 Mg Tablet) 5 mg PO Q4H PRN PRN PRN Reason: Pain Score 4-5 Last Admin: 12/26/19 21:45 Dose: 5 mg Documented by: Verapamil HCl (Verapamil Sr 180 Mg Capsule) 180 mg PO DAILY [facility] Last Admin: 12/27/19 15:28 Dose: 180 mg Documented by: Addendum: Dr. Christianson I personally examined the patient and reviewed the chart. I agree with the above. 84-year-old male presenting from home with flank pain and difficulty emptying his bladder. He was found to have multiple ureteral stones and underwent intervention today by urology. He had bilateral stents placed today. Creatinine did rise a little bit today however now that he is postop, would anticipate improvement in his creatinine tomorrow. Inpatient E&M: [id number] [facility] Hosp L2
--- NOTE | 2019-12-27 11:01 | EKG12_ITS ---
Test Reason : PRE OP Blood Pressure : / mmHG Vent. Rate : 065 BPM Atrial Rate : 065 BPM P-R Int : 172 ms QRS Dur : 106 ms QT Int : 410 ms P-R-T Axes : -04 -33 026 degrees QTc Int : 426 ms Sinus rhythm with Premature atrial complexes Left axis deviation Abnormal ECG When compared with ECG of 23-JUN-2011 13:27, Premature atrial complexes are now Present Confirmed by JEANNA VILLARREAL, JUDY ([id number]), multimedia editor ODESSA MARCELINO ([id number]) on 12/31/2019 9:38:02 AM Referred By: DENNIS Confirmed By:JUDY MEEKS MD
[2019-12-27] MEDS: Cefazolin 2 GM in 0.9% Normal Saline 100 ML IV (11:29)
--- NOTE | 2019-12-27 12:00 | BLB_PTH ---
PATIENT: ANURADHA NOLAN LOC: MS3 U#:[id number] AGE/SX: 84/M ROOM: CA325 RE12/27/[address]: Dr. Taylor Aguila MD : [id number] BED: 1 DIS: 12/30/2019 SPEC #: [id number] RECD: 12/27/19 14:45 STATUS: MASOOD RELo #: [id number] ARPAN: 12/27/19 12:[address]: Taylor Aguila DEPT: SURGICAL PATHOLOGY RECD BY: uRth Long ENTERED: 12/30/19 07:20 SP TYPE: TURB OTHR DR: MD Dr. Reyna Damon MD Dr. Juan Miguel Proano, MD Dr. Nana Yaa Koram, MD Tissues: Urinary bladder, NOS Procedures: Surgery Specimen Level I Surgery Specimen Level IV HEADER OPERATION: Cysto, ureteroscopy, retro, laser, stent, balloon dilation PRE-OP DIAGNOSIS: Bladder stones, obstruction, bilateral hydronephrosis TISSUE SUBMITTED: Bladder stones and tissue MICROSCOPIC DIAGNOSIS Bladder tissue and stones, biopsy: Benign fibrous tissue and organizing blood clot. Rare fragments of benign urothelium. Urinary bladder stones, removal: Unremarkable calculi (gross diagnosis only). AM:yasmeen 12/31/19 MICROSCOPIC DESCRIPTION Slides are reviewed. GROSS DESCRIPTION Received in fixative is one container labeled with the patient's name and designated bladder stones and tissue. The specimen consists of dark red-kennedy soft tissue resembling blood clots measuring in aggregate 1 x 0.5 x 0.2 cm. Also present in the specimen container are multiple irregular fragments of kennedy-yellow calculi ranging in size from <0.1 to 0.5 cm in greatest dimension. The soft tissue is submitted in its entirety in one cassette. / AM:yasmeen 12/30/19 TC:5 CPT: 91413, 88385
--- NOTE | 2019-12-27 12:14 | NURSING ---
Attempted to call with update to notify her that pt is going to surgery with Dr. Mariee today for Cystoscopy. Unable to leave a message. will try again later.
--- NOTE | 2019-12-27 12:56 | OP.PCM_ITS ---
Problem List (1) Acute kidney injury Status: Acute (2) Bladder stones Status: Acute Report of Operation Date of Procedure: 12/27/19 Pre-Operative Diagnosis: Right ureteral obstruction from stones, left ureteral obstruction ureteral calculi, bilateral hydronephrosis, large stones in the bladder, BPH with obstruction. Post-Operative Diagnosis: Same Surgery/Procedure Performed:: Multiple procedures, cystoscopy and dilation of urethral stricture, cystoscopy right retrograde pyelogram, balloon dilation of the right ureter, right ureteroscopy laser of stones and right stent placement. Left retrograde pyelogram and left stent placement. Cystoscopy and cystolitholapaxy of bladder stones multiple larger than 2.5 cm in size. Transurethral resection of the prostate. Description of Surgical Findings:: 84-year-old male presented to the hospital with bilateral hydronephrosis obstruction of both ureters bladder stones and retention of urine with BPH with obstruction so today he agreed to undergo multiple procedures. Taken back to the operating room at the smooth induction of general anesthesia he was placed in dorsolithotomy position. The penis and testicles were prepped and draped in usual sterile sterile fashion. 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 Went inside once inside the bladder identified multiple stones in the floor the bladder over 2.5 cm of stones in the floor the bladder multiple stones. I then went to the right side and try to cannulate the right ureteral orifice but there was a stone lodged in the distal right ureter after multiple attempts with different wires I was able to get a wire up into the ureter but the wire kept coiling as there was a lot of tortuosity of the ureter and very difficult to get the wire all the way up to the kidney. I then left the Super Stiff wire in place and over the Super Stiff wire I balloon dilated the distal right ureter then after this I went in with a similar rigid ureteroscope got into the ureter and laser the stone is causing obstruction of the in the right ureter. I then advanced a wire up into the right kidney and this time with the ureteroscope straighten out the ureter was able to get the wire all the way into the kidney and then I backloaded this a stent and put a stent up on the right side pulled the wire and the stent coiled in the kidney bladder good position I then went to the left side was able to cannulate the left ureter orifice performed a retrograde pyelogram but again did see dilated ureter and obstruction appeared to be a stone in the mid ureter on the left side this point decided not to lakhwinder after the stone we just put a stent on the left side to performed a retrograde pyelogram documenting the obstruction but a wire up in the left kidney and over the wire place a 6 Bahraini by 28 cm stent. We then turned attention to the multiple stones within the bladder using 1000 ?m laser fiber started to laser the stones with 2.5 J and 10Hz after the stones were lasered this is a multiple stones greater than 2.5 cm in size and after the stones were lasered into little tiny pieces and I flushed them over the bladder and clear the bladder of stones I then put in the resectoscope through the cystoscopy and then started working on the prostate we used the button resectoscope Olympus the floor the prostate was fairly flat but he did have flapping tissue in the right and left side with obstruction used the resectoscope to resect all this tissue in the right and left side proximal to the verumontanum. After the prostate was resected with the button Olympus the tissue was sent off as a specimen both stones and prostate tissue and then I put a 22 Bahraini catheter into the bladder and continuous irrigation and is taken to have anesthetic. Type of Anesthesia:: General Drains: 22fr - Admit VTE Documentation VTE Present on Admission: No VTE Mechan Device Prophylaxis: SCD's
[2019-12-27] MEDS: Verapamil SR 180 MG CAPSULE PO (15:28)
--- NOTE | 2019-12-27 15:52 | CASEMGMT ---
RN CM Face to Face with patient for initial transition planning/care coordination assessment. RN CM introduced self and role at [facility]. Patient lying in bed, alert and oriented. Patient willing to participate in assessment and is able to answer all questions appropriately. Care providers, pharmacy, and demographics verified. Patient wishes to discharge home, denies need for home health at this time. Patient states she has no further needs or concerns at this time. CM to follow for discharge planning needs that may arise. PCP: Luca Specialists: Zeke certified massage therapist Preferred Pharmacy: [facility] Insurance: [employer] Prescription Benefit: yes Living Will/HPOA: yes, Neeraj Fairchild LNOK: Living Arrangements: Patient lives with in a condo with no steps to enter. Patient is independent at home for self care, has cleaning lady. Transportation: DME/HHC: Patient states she has walker, cane, shower chair, at home. Will monitor for home oxygen. Patient provided with DME companies and would like [employer]. Disposition Plan: Patient to discharge home with family support and follow-up plans in place. Alysha PATEL, RN, CM
[2019-12-27] MEDS: Menthol/Lanolin/Calamine/Znox 113 GM Tube 1 APPLIC TOPICAL ×2 (16:06→21:39)
[2019-12-27] MEDS: oxyCODONE 5 MG Tablet PO (22:56)
[2019-12-28] VITALS (10 sets, daily range): BP systolic 100–134; BP diastolic 59–74; PULSE 68–78; RESP 16–18; TEMP 36.6–37.2; O2SAT 94–96; BMI 24.4
[2019-12-28] MEDS: 0.9% Normal Saline 1,000 ML 125 ML IV ×3 (01:12→17:37)
[2019-12-28 06:22] LABS: Hematocrit 35.5 % (40-54); Hemoglobin 10.8 g/dL (13.0-16.5); Mean Corp Hgb Conc 30.4 g/dL (32-36); Mean Corpuscular Hgb 31.2 pg (27.0-32.0); Mean Corpuscular Volume 102.6 fL (80-94); Mean Platelet Vol. 9.8 fl (6.2-12.0); Platelet Count 143 K/mm3 (150-450); RBC Distribution Width CV 14.3 % (11.6-14.6); Red Blood Count 3.46 M/mm3 (4.6-6.2)
[2019-12-28] MEDS: Menthol/Lanolin/Calamine/Znox 113 GM Tube 1 APPLIC TOPICAL ×3 (06:26→20:34)
[2019-12-28 06:50] LABS: Anion Gap 5 (5-15); BUN 52 mg/dL (7-18); BUN/Creat Ratio 11.4 RATIO (10-20); Calcium,Total 7.9 mg/dL (8.5-10.1); Chloride 113 mmol/L (98-107); Creatinine, Serum 4.56 mg/dL (0.70-1.30); EST Glomerular Filtration Rate 13 mL/min (>60); Est Glom Filt Rate - Afr Amer 16 mL/min (>60); Glucose 125 mg/dL (74-106); Sodium Level 137 mmol/L (136-145)
[2019-12-28] MEDS: Verapamil SR 180 MG CAPSULE PO (09:56)
--- NOTE | 2019-12-28 10:13 | PCM.CONS.R ---
Problem List (1) Acute kidney injury Status: Acute Consultation - Renal 12/28/19 PCP/ Referring MD: Requesting physician: [] Primary care physician: Dr. Reyna Hoff MD Reason for Consultation:: HENOK - History of Present Illness History of Present Illness: The patient is a 84 year old M who presented to the hospital with complaints of flank pain, hematuria. Was diagnosed with multiple renal calculi. Renal consulted for acute renal failure. On admission, imaging showed left renal atrophy, bilateral hydronephrosis. He was taken to the OR yesterday by urology and had stone removal. Feels somewhat better today. Sandoval is still in. Urine is clearing up. Last known baseline creatinine from 2 years ago was normal. In October of this year creatinine was between 1.6-1.8. - Allergies Allergies: Allergies No Known Allergies Allergy (Verified 12/26/19 10:44) - Current Medications Current Medications: Current Medications Acetaminophen (Acetaminophen 325 Mg Tablet) 650 mg PO Q6H PRN PRN PRN Reason: Pain Score 1-10/Temp > 100.7 F Calamine/Phenol (Menthol/Lanolin/Calamine/Znox 113 Gm Tube) 1 applic TOPICAL TID [facility]; Protocol Last Admin: 12/28/19 06:26 Dose: 1 applicatio Documented by: Sodium Chloride () 1,000 mls @ 125 mls/hr IV .Q8H [facility] Last Admin: 12/28/19 09:39 Dose: 125 mls/hr Documented by: Morphine Sulfate (Morphine 2 Mg/Ml Syringe) 2 mg IV Q3H PRN PRN PRN Reason: Pain Score 6-10 Last Admin: 12/27/19 07:46 Dose: 2 mg Documented by: Ondansetron HCl (Ondansetron 4 Mg/2 Ml Vial) 4 mg IV Q8H PRN PRN PRN Reason: NAUSEA/VOMITING Oxycodone HCl (Oxycodone 5 Mg Tablet) 5 mg PO Q4H PRN PRN PRN Reason: Pain Score 4-5 Last Admin: 12/27/19 22:56 Dose: 5 mg Documented by: Verapamil HCl (Verapamil Sr 180 Mg Capsule) 180 mg PO DAILY [facility] Last Admin: 12/28/19 09:56 Dose: 180 mg Documented by: - Past Medical History Past Medical History (Chronic Problems): Chronic Problems Ulcerative colitis (Chronic) Hypertension (Chronic) - Past Surgical History Surgical History: appendectomy, colectomy - Colectomy w/ ileostomy., total hip arthroplasty - Right, tonsillectomy, - - Hernia repair - Social History Smoking Status: Never smoker Alcohol: None Drugs: None - Family History Maternal History Items: - - Denies known maternal medical history. Reports she lived into her 90s. Paternal History Items: - - Denies known paternal medical history reports he lived into his 90s. Review of Systems Constitutional: Denies: Chills, Fever, Weight Change HEENT: Denies: Head Aches, Sinus Congestion, Sinus Drainage Cardiovascular: Denies: Chest Pain, Palpitations Respiratory: Denies: Cough, Shortness of breath at rest, Sputum production Gastrointestinal: Denies: Abdominal Pain, Nausea, Vomiting Genitourinary: Denies: Dysuria Musculoskeletal: Denies: Joint Pain, Joint Tenderness Skin: Denies: Rash, Wounds Neurological: Denies: Numbness, Tingling, Focal weakness Psychiatric: Denies: Anxiety, Depression, Homicidal Ideations, Suicidal Ideations Hematologic/ Lymphatic: Denies: Easy Bruising, Easy Bleeding Patient Problems: Active and Suspected Problems Acute kidney injury (Acute) Renal calculi (Acute) Bladder stones (Acute) - Physical Exam Vitals/I&O's: Vital Signs Temp Pulse Resp BP Pulse Ox 98.5 F 70 16 118/63 96 12/28/19 03:30 12/28/19 06:00 12/28/19 03:30 12/28/19 03:30 12/28/19 03:30 Oxygen Flow Rate (L/min) 4 Oxygen Delivery Method Room Air Weight: 74.48 kg Body Mass Index (BMI) 22.8 Intake and Output for Last 24 Hours 12/26/19 12/27/19 12/28/19 23:59 23:59 23:59 Intake Total 500 / 1200 4128.33 / 4128.33 1879.17 / 1879.17 Output Total 2500 / 2500 800 / 800 Balance 500 / 750 1628.33 / 1628.33 1079.17 / 1079.17 General: Alert, Oriented x3, Cooperative HEENT: Atraumatic, PERRLA, EOMI, Normocephalic Neck: Supple, No JVD, Negative Carotid Bruits Lungs: Clear to auscultation, Normal air movement Cardiovascular: Regular rate, No murmurs Abdomen: Bowel Sounds Present, Soft, Non Tender Extremities: No edema, Capillary Refill Less than 3 Seconds Skin: No rashes, No breakdown Musculoskeletal: No Tenderness to Palpation of Joints or Extremities Neurological: Cranial nerves II-XII grossly intact Psych/Mental Status: Normal Affect, Appropriate Microbiology Past 72 Hours 12/27/19 07:50 Mucosa - Nose SARS-CoV-2 Antigen (Rapid) - Final Laboratory Results 12/28/19 06:07: WBC 12.0 H, RBC 3.46 L, Hgb 10.8 L, Hct 35.5 L, MCV 102.6 H, MCH 31.2, MCHC 30.4 L, RDW Std Deviation 54.0 H, RDW Coeff of Jeremiah 14.3, Plt Count 143 L, MPV 9.8 12/28/19 06:07: Sodium 137, Potassium 5.0, Chloride 113 H, Carbon Dioxide 19.0 L, Anion Gap 5, BUN 52 H, Creatinine 4.56 H, Estim Creat Clear Calc 12.70, Est GFR (MDRD) Af Amer 16 L, Est GFR (MDRD) Non-Af 13 L, BUN/Creatinine Ratio 11.4, Glucose 125 H, Calcium 7.9 L Current Medications Acetaminophen (Acetaminophen 325 Mg Tablet) 650 mg PO Q6H PRN PRN PRN Reason: Pain Score 1-10/Temp > 100.7 F Calamine/Phenol (Menthol/Lanolin/Calamine/Znox 113 Gm Tube) 1 applic TOPICAL TID [facility]; Protocol Last Admin: 12/28/19 06:26 Dose: 1 applicatio Documented by: Sodium Chloride () 1,000 mls @ 125 mls/hr IV .Q8H [facility] Last Admin: 12/28/19 09:39 Dose: 125 mls/hr Documented by: Morphine Sulfate (Morphine 2 Mg/Ml Syringe) 2 mg IV Q3H PRN PRN PRN Reason: Pain Score 6-10 Last Admin: 12/27/19 07:46 Dose: 2 mg Documented by: Ondansetron HCl (Ondansetron 4 Mg/2 Ml Vial) 4 mg IV Q8H PRN PRN PRN Reason: NAUSEA/VOMITING Oxycodone HCl (Oxycodone 5 Mg Tablet) 5 mg PO Q4H PRN PRN PRN Reason: Pain Score 4-5 Last Admin: 12/27/19 22:56 Dose: 5 mg Documented by: Verapamil HCl (Verapamil Sr 180 Mg Capsule) 180 mg PO DAILY [facility] Last Admin: 12/28/19 09:56 Dose: 180 mg Documented by: Assessment/Plan All Active Problems Acute kidney injury (Acute) Renal calculi (Acute) Bladder stones (Acute) Acute renal failure Likely chronic kidney disease Left renal atrophy Bilateral hydronephrosis seen on CT abdomen Acute renal failure was likely related to obstructive nephropathy. Currently has a Sandoval catheter in and stones were already removed. BUN and creatinine are better today. Monitor clinically for now. No acute indications for renal replacement therapy.
--- NOTE | 2019-12-28 10:41 | PCM.PROGNOTE ---
<Cherry Fraire [employer] REPORTER - Last Filed: 12/28/19 10:49> Patient Problems: Active and Suspected Problems Acute kidney injury (Acute) Renal calculi (Acute) Bladder stones (Acute) Subjective: Patient seen and examined. Reports discomfort related to Sandoval catheter. Patient reports concern related to going home with Sandoval catheter. Amendable to short-term SNF if PT/OT recommends. - Physical Exam Vitals/I&O's: Vital Signs Temp Pulse Resp BP Pulse Ox 98.5 F 70 16 118/63 96 12/28/19 03:30 12/28/19 06:00 12/28/19 03:30 12/28/19 03:30 12/28/19 03:30 Oxygen Flow Rate (L/min) 4 Oxygen Delivery Method Room Air Weight: 164 lb 3.205 oz Body Mass Index (BMI) 22.8 Intake and Output for Last 24 Hours 12/26/19 12/27/19 12/28/19 23:59 23:59 23:59 Intake Total 500 / 1200 4128.33 / 4128.33 1879.17 / 1879.17 Output Total 2500 / 2500 800 / 800 Balance 500 / 750 1628.33 / 1628.33 1079.17 / 1079.17 General: Alert, Oriented x3, Cooperative HEENT: Atraumatic, PERRLA, EOMI, Normocephalic Neck: Supple, No JVD, Negative Carotid Bruits Lungs: Clear to auscultation, Normal air movement Cardiovascular: Regular rate, No murmurs Abdomen: Bowel Sounds Present, Soft, Non Tender Extremities: No edema, Capillary Refill Less than 3 Seconds Skin: No rashes, No breakdown Musculoskeletal: No Tenderness to Palpation of Joints or Extremities Neurological: Cranial nerves II-XII grossly intact, Neuro grossly intact Psych/Mental Status: Normal Affect, Appropriate Microbiology Past 72 Hours 12/27/19 07:50 Mucosa - Nose SARS-CoV-2 Antigen (Rapid) - Final Laboratory Results 12/28/19 06:07: WBC 12.0 H, RBC 3.46 L, Hgb 10.8 L, Hct 35.5 L, MCV 102.6 H, MCH 31.2, MCHC 30.4 L, RDW Std Deviation 54.0 H, RDW Coeff of Jeremiah 14.3, Plt Count 143 L, MPV 9.8 12/28/19 06:07: Sodium 137, Potassium 5.0, Chloride 113 H, Carbon Dioxide 19.0 L, Anion Gap 5, BUN 52 H, Creatinine 4.56 H, Estim Creat Clear Calc 12.70, Est GFR (MDRD) Af Amer 16 L, Est GFR (MDRD) Non-Af 13 L, BUN/Creatinine Ratio 11.4, Glucose 125 H, Calcium 7.9 L Current Medications Acetaminophen (Acetaminophen 325 Mg Tablet) 650 mg PO Q6H PRN PRN PRN Reason: Pain Score 1-10/Temp > 100.7 F Calamine/Phenol (Menthol/Lanolin/Calamine/Znox 113 Gm Tube) 1 applic TOPICAL TID [facility]; Protocol Last Admin: 12/28/19 06:26 Dose: 1 applicatio Documented by: Sodium Chloride () 1,000 mls @ 125 mls/hr IV .Q8H [facility] Last Admin: 12/28/19 09:39 Dose: 125 mls/hr Documented by: Morphine Sulfate (Morphine 2 Mg/Ml Syringe) 2 mg IV Q3H PRN PRN PRN Reason: Pain Score 6-10 Last Admin: 12/27/19 07:46 Dose: 2 mg Documented by: Ondansetron HCl (Ondansetron 4 Mg/2 Ml Vial) 4 mg IV Q8H PRN PRN PRN Reason: NAUSEA/VOMITING Oxycodone HCl (Oxycodone 5 Mg Tablet) 5 mg PO Q4H PRN PRN PRN Reason: Pain Score 4-5 Last Admin: 12/27/19 22:56 Dose: 5 mg Documented by: Verapamil HCl (Verapamil Sr 180 Mg Capsule) 180 mg PO DAILY [facility] Last Admin: 12/28/19 09:56 Dose: 180 mg Documented by: Medical Necessity - Tobacco Use Smoking Status: Never smoker Assessment/Plan All Active Problems Acute kidney injury (Acute) Renal calculi (Acute) Bladder stones (Acute) 1. Acute kidney injury, post renal/obstructive uropathy secondary to renal calculi/bladder stones resulting in bilateral hydronephrosis-CT reports multiple stones in the bladder as well. UA unremarkable. Urology consulted. Patient underwent cystoscopy and dilation of urethral stricture, cystoscopy with right pyelogram, balloon dilation of right ureter with right ureteroscopy laser of stones and right stent placement, left pyelogram and left stent placement, cystolitholopaxy of bladder stones and transurethral resection of prostate. Sandoval in place with bladder irrigation. IV fluids, trend BMP. PT/OT. 2. Retroperitoneal lymphadenopathy/questionable soft tissue mass left common iliac artery-noted on CT. Recommend outpatient follow-up for further evaluation/surveillance. 3. Ulcerative colitis status post colectomy-colostomy in place. 4. Hypertension-continue verapamil regimen. DVT prophylaxis-SCDs This patient was seen by JUAN RAMON Nayak under the supervision of Dr. Christianson. <Eliceo Christianson F - Last Filed: 12/28/19 18:04> - Physical Exam Vitals/I&O's: Vital Signs Temp Pulse Resp BP Pulse Ox 97.8 F 70 18 100/60 95 12/28/19 14:00 12/28/19 15:48 12/28/19 14:00 12/28/19 14:00 12/28/19 14:00 Oxygen Flow Rate (L/min) 4 Oxygen Delivery Method Room Air Weight: 164 lb 3.205 oz Body Mass Index (BMI) 22.8 Intake and Output for Last 24 Hours 12/26/19 12/27/19 12/28/19 23:59 23:59 23:59 Intake Total 500 / 1200 4128.33 / 4128.33 4075.00 / 4075.00 Output Total 2500 / 2500 1850 / 1850 Balance 500 / 750 1628.33 / 1628.33 2225.00 / 2225.00 Microbiology Past 72 Hours 12/27/19 07:50 Mucosa - Nose SARS-CoV-2 Antigen (Rapid) - Final Laboratory Results 12/28/19 06:07: WBC 12.0 H, RBC 3.46 L, Hgb 10.8 L, Hct 35.5 L, MCV 102.6 H, MCH 31.2, MCHC 30.4 L, RDW Std Deviation 54.0 H, RDW Coeff of Jeremiah 14.3, Plt Count 143 L, MPV 9.8 12/28/19 06:07: Sodium 137, Potassium 5.0, Chloride 113 H, Carbon Dioxide 19.0 L, Anion Gap 5, BUN 52 H, Creatinine 4.56 H, Estim Creat Clear Calc 12.70, Est GFR (MDRD) Af Amer 16 L, Est GFR (MDRD) Non-Af 13 L, BUN/Creatinine Ratio 11.4, Glucose 125 H, Calcium 7.9 L Current Medications Acetaminophen (Acetaminophen 325 Mg Tablet) 650 mg PO Q6H PRN PRN PRN Reason: Pain Score 1-10/Temp > 100.7 F Calamine/Phenol (Menthol/Lanolin/Calamine/Znox 113 Gm Tube) 1 applic TOPICAL TID [facility]; Protocol Last Admin: 12/28/19 14:37 Dose: 1 applicatio Documented by: Sodium Chloride () 1,000 mls @ 125 mls/hr IV .Q8H [facility] Last Admin: 12/28/19 17:37 Dose: 125 mls/hr Documented by: Morphine Sulfate (Morphine 2 Mg/Ml Syringe) 2 mg IV Q3H PRN PRN PRN Reason: Pain Score 6-10 Last Admin: 12/27/19 07:46 Dose: 2 mg Documented by: Ondansetron HCl (Ondansetron 4 Mg/2 Ml Vial) 4 mg IV Q8H PRN PRN PRN Reason: NAUSEA/VOMITING Oxycodone HCl (Oxycodone 5 Mg Tablet) 5 mg PO Q4H PRN PRN PRN Reason: Pain Score 4-5 Last Admin: 12/27/19 22:56 Dose: 5 mg Documented by: Verapamil HCl (Verapamil Sr 180 Mg Capsule) 180 mg PO DAILY [facility] Last Admin: 12/28/19 09:56 Dose: 180 mg Documented by: Addendum: Dr. Christianson I personally examined the patient and reviewed the chart. I agree with the above. 84-year-old male presenting from home with flank pain and difficulty emptying his bladder. He was found to have multiple ureteral stones and underwent intervention today by urology. He had bilateral stents placed today. Creatinine did rise a little bit today however now that he is postop, would anticipate improvement in his creatinine tomorrow. 12/28/2019: Doing well today. His creatinine is much improved compared to yesterday after his obstruction was resolved. Appreciate nephrology as well as urology input and assistance. We will have PT/OT evaluate him and if necessary set up for transfer to a [facility] facility otherwise will plan for discharge home when stable. Inpatient E&M: [id number] [facility] L2
[2019-12-28] MEDS: Acetaminophen 325 MG Tablet 650 MG PO (20:33)
[2019-12-29] VITALS (10 sets, daily range): BP systolic 121–142; BP diastolic 59–68; PULSE 73–81; RESP 18–20; TEMP 36.6–37.2; O2SAT 94–96
[2019-12-29] MEDS: 0.9% Normal Saline 1,000 ML 125 ML IV (02:09)
[2019-12-29] MEDS: Menthol/Lanolin/Calamine/Znox 113 GM Tube 1 APPLIC TOPICAL ×3 (05:17→21:03)
[2019-12-29 07:57] LABS: Hematocrit 36.9 % (40-54); Hemoglobin 11.6 g/dL (13.0-16.5); Mean Corp Hgb Conc 31.4 g/dL (32-36); Mean Corpuscular Hgb 31.9 pg (27.0-32.0); Mean Corpuscular Volume 101.4 fL (80-94); Platelet Count 150 K/mm3 (150-450); RBC Distribution Width CV 14.2 % (11.6-14.6); RBC Distribution Width SD 52.9 fl (35.1-43.9); Red Blood Count 3.64 M/mm3 (4.6-6.2)
[2019-12-29 08:12] LABS: Anion Gap 9 (5-15); BUN 44 mg/dL (7-18); BUN/Creat Ratio 15.3 RATIO (10-20); Chloride 110 mmol/L (98-107); Creatinine, Serum 2.88 mg/dL (0.70-1.30); EST Glomerular Filtration Rate 22 mL/min (>60); Est Glom Filt Rate - Afr Amer 27 mL/min (>60); Estimated Creatinine Clearance 20.11 ml/min; Glucose 119 mg/dL (74-106); Potassium 4.2 mmol/L (3.5-5.1); Sodium Level 138 mmol/L (136-145)
--- NOTE | 2019-12-29 09:26 | DCINST_ITS ---
Discharge Diet: No Restrictions Discharge Activity: Return to Normal Activity, May Not Drive - for 2 days. Additional Activity Instructions:: Please be aware that pain medications may cause nausea. You should typically eat light foods as you take your pain medication. Pain medication may cause constipation, if this is a problem for you, please discuss with your doctor. Allergies/Adverse Reactions: Allergies No Known Allergies Allergy (Verified 12/26/19 10:44) Medications to take at Discharge Verapamil HCl [Verapamil ER] 180 mg PO DAILY 05/30/14 Aspirin [Adult Aspirin Regimen] 91 mg PO DAILY 10/16/18 Primary Care Physician: Reyna Hoff MD [Primary Care Provider] - Test Results: Test results from this visit will be discussed in further detail at your follow- up appointment, if applicable. Please Follow Up With: Giacomo Mariee MD When: in 2 weeks, please call to make an appointment.
[2019-12-29] MEDS: Verapamil SR 180 MG CAPSULE PO (10:23)
--- NOTE | 2019-12-29 10:58 | DCINST_ITS ---
- Discharge Diagnoses Current Active Problems: Current Active and Chronic Problems Acute kidney injury (Acute) Renal calculi (Acute) Bladder stones (Acute) Ulcerative colitis (Chronic) Hypertension (Chronic) You will use the following diet at home:: No restrictions Discharge Activity: Return to Normal Activity, May Not Drive - for 2 days. Additional Activity Instructions:: Please be aware that pain medications may cause nausea. You should typically eat light foods as you take your pain medication. Pain medication may cause constipation, if this is a problem for you, please discuss with your doctor. Call your doctor if you observe: Shortness of breath, Dizziness, Fainting spells, Chest pain Additional Instructions: Hold aspirin until follow up with urology. Allergies/Adverse Reactions: Allergies No Known Allergies Allergy (Verified 12/26/19 10:44) Medications to take at Discharge Verapamil HCl [Verapamil ER] 180 mg PO DAILY 05/30/14 Aspirin [Adult Aspirin Regimen] 91 mg PO DAILY 10/16/18 Cephalexin [Keflex] 250 mg PO Q12 #10 cap 12/29/19 Oxycodone [Oxyir] 5 mg PO Q4H PRN PRN 2 Days #10 tablet 12/29/19 The following prescriptions were given: Cephalexin [Keflex] 250 mg PO Q12 #10 cap [facility] Oxycodone [Oxyir] 5 mg PO Q4H PRN PRN 2 Days #10 tablet PRN Reason: Pain Score 6-10 Transmission Status: Sent to [facility] Primary Care Physician: Reyna Hoff MD [Primary Care Provider] - Please follow up with your Primary Care Physician in: 1 Week Test Results: Test results from this visit will be discussed in further detail at your follow- up appointment, if applicable. Please Follow Up With: Giacomo Mariee MD When: in 2 weeks, please call to make an appointment. Proposed Discharge Date: 12/29/19
--- NOTE | 2019-12-29 11:05 | PCM.DC.SUM ---
<Cherry Fraire STUDIO OPERATION ENGINEER - Last Filed: 12/29/19 11:11> Discharge Date and Diagnosis - Problem List Patient Problems: Active and Suspected Problems Acute kidney injury (Acute) Renal calculi (Acute) Bladder stones (Acute) Date of Admission: 12/26/19 Date of Discharge: 12/29/19 - Primary Discharge Diagnosis Acute Problems: Active Problems 1. Acute kidney injury, post renal/obstructive uropathy secondary to renal calculi/bladder stones resulting in bilateral hydronephrosis 2. Retroperitoneal lymphadenopathy/questionable soft tissue mass left common iliac artery-noted on CT. 3. Ulcerative colitis status post colectomy 4. Hypertension - Secondary Discharge Diagnosis Chronic Problems: Chronic Problems Ulcerative colitis (Chronic) Hypertension (Chronic) Hospital Course and Treatment Imaging Results: Diagnostic Data Abdomen/Pelvis CT 12/26/19 12:22 IMPRESSION: Multiple calculi are seen at the base of the bladder. Atrophy of the left kidney. Bilateral hydronephrosis. Multiple nonobstructive calculi are seen in the right renal calyces. Status post colostomy and right lower quadrant. Retroperitoneal lymphadenopathy. Electronically Signed: Morgan Alejandra, at 12:45 EST , Service support , Dr. Mariee- Urology Dr. Lerma- Nephrology Operations: - - cystoscopy and dilation of urethral stricture, cystoscopy with right pyelogram, balloon dilation of right ureter with right ureteroscopy laser of stones and right stent placement, left pyelogram and left stent placement, cystolitholopaxy of bladder stones and transurethral resection of prostate. Procedures: None Summary of Care Provided: The patient is a 84 year old M admitted 12/26/2019 due to flank pain and difficulty emptying bladder. 1. Acute kidney injury, post renal/obstructive uropathy secondary to renal calculi/bladder stones resulting in bilateral hydronephrosis-CT reports multiple stones in the bladder as well. UA unremarkable. Urology consulted. Patient underwent cystoscopy and dilation of urethral stricture, cystoscopy with right pyelogram, balloon dilation of right ureter with right ureteroscopy laser of stones and right stent placement, left pyelogram and left stent placement, cystolitholopaxy of bladder stones and transurethral resection of prostate 12/27/2019. Sandoval removed and patient will have voiding trial prior to discharge. Rx for renally dosed Keflex empirically at discharge. Renal function significantly improved. Recommend repeat BMP in 1 week by primary care provider. Follow-up with urology in 2 weeks. 2. Retroperitoneal lymphadenopathy/questionable soft tissue mass left common iliac artery-noted on CT. Recommend outpatient follow-up for further evaluation/surveillance. 3. Ulcerative colitis status post colectomy-colostomy in place. 4. Hypertension-continue verapamil regimen. General: Alert, Oriented x3, Cooperative HEENT: Atraumatic, PERRLA, EOMI, Normocephalic Neck: Supple, No JVD, Negative Carotid Bruits Lungs: Clear to auscultation, Normal air movement Cardiovascular: Regular rate, No murmurs Abdomen: Bowel Sounds Present, Soft, Non Tender Extremities: No edema, Capillary Refill Less than 3 Seconds Skin: No rashes, No breakdown Musculoskeletal: No Tenderness to Palpation of Joints or Extremities Neurological: Cranial nerves II-XII grossly intact, Neuro grossly intact Psych/Mental Status: Normal Affect, Appropriate Patient seen and examined prior to discharge. Physical assessment as noted above. Patient is stable for discharge with follow up recommendations as noted above. This patient was seen by JUAN RAMON Nayak under the supervision of Dr. Christianson. Patient Problems: Active and Suspected Problems Acute kidney injury (Acute) Renal calculi (Acute) Bladder stones (Acute) - Physical Exam Vitals/I&O's: Vital Signs Temp Pulse Resp BP Pulse Ox 97.9 F 80 20 H 135/68 H 96 12/29/19 10:24 12/29/19 10:24 12/29/19 10:24 12/29/19 10:24 12/29/19 10:24 Oxygen Flow Rate (L/min) 4 Oxygen Delivery Method Room Air Weight: 164 lb 3.205 oz Body Mass Index (BMI) 22.8 Intake and Output for Last 24 Hours 12/27/19 12/28/19 12/29/19 23:59 23:59 23:59 Intake Total 4128.33 / 4128.33 4075.00 / 4075.00 1999 / 1999 Output Total 2500 / 2500 2900 / 3000 300 / 300 Balance 1628.33 / 1628.33 1175.00 / 1075.00 1700 / 1700 Microbiology Past 72 Hours 12/27/19 07:50 Mucosa - Nose SARS-CoV-2 Antigen (Rapid) - Final Laboratory Results 12/29/19 07:35: WBC 17.0 H, RBC 3.64 L, Hgb 11.6 L, Hct 36.9 L, MCV 101.4 H, MCH 31.9, MCHC 31.4 L, RDW Std Deviation 52.9 H, RDW Coeff of Jeremiah 14.2, Plt Count 150, MPV 10.0 12/29/19 07:35: Sodium 138, Potassium 4.2, Chloride 110 H, Carbon Dioxide 19.0 L, Anion Gap 9, BUN 44 H, Creatinine 2.88 H, Estim Creat Clear Calc 20.11, Est GFR (MDRD) Af Amer 27 L, Est GFR (MDRD) Non-Af 22 L, BUN/Creatinine Ratio 15.3, Glucose 119 H, Calcium 8.0 L Current Medications Acetaminophen (Acetaminophen 325 Mg Tablet) 650 mg PO Q6H PRN PRN PRN Reason: Pain Score 1-10/Temp > 100.7 F Last Admin: 12/28/19 20:33 Dose: 650 mg Documented by: Calamine/Phenol (Menthol/Lanolin/Calamine/Znox 113 Gm Tube) 1 applic TOPICAL TID [facility]; Protocol Last Admin: 12/29/19 05:17 Dose: 1 applicatio Documented by: Morphine Sulfate (Morphine 2 Mg/Ml Syringe) 2 mg IV Q3H PRN PRN PRN Reason: Pain Score 6-10 Last Admin: 12/27/19 07:46 Dose: 2 mg Documented by: Ondansetron HCl (Ondansetron 4 Mg/2 Ml Vial) 4 mg IV Q8H PRN PRN PRN Reason: NAUSEA/VOMITING Oxycodone HCl (Oxycodone 5 Mg Tablet) 5 mg PO Q4H PRN PRN PRN Reason: Pain Score 4-5 Last Admin: 12/27/19 22:56 Dose: 5 mg Documented by: Verapamil HCl (Verapamil Sr 180 Mg Capsule) 180 mg PO DAILY [facility] Last Admin: 12/29/19 10:23 Dose: 180 mg Documented by: Discharge Diet: No Restrictions Discharge Activity: Return to Normal Activity, May Not Drive - for 2 days. Additional Activity Instructions:: Please be aware that pain medications may cause nausea. You should typically eat light foods as you take your pain medication. Pain medication may cause constipation, if this is a problem for you, please discuss with your doctor. Call your doctor if you observe: Shortness of breath, Dizziness, Fainting spells, Chest pain Home Medications: Medications to take at Discharge Verapamil HCl [Verapamil ER] 180 mg PO DAILY 05/30/14 Aspirin [Adult Aspirin Regimen] 91 mg PO DAILY 10/16/18 Cephalexin [Keflex] 250 mg PO Q12 #10 cap 12/29/19 Oxycodone [Oxyir] 5 mg PO Q4H PRN PRN 2 Days #10 tab 12/29/19 Following Prescriptions Were Given to Patient: Cephalexin [Keflex] 250 mg PO Q12 #10 cap Transmission Status: Received by [facility] Oxycodone [Oxyir] 5 mg PO Q4H PRN PRN 2 Days #10 tab PRN Reason: Pain Score 6-10 Transmission Status: Received by [facility] Primary Care Physician: Reyna Hoff MD [Primary Care Provider] - Please follow up with your Primary Care Physician in: 1 Week Please Follow Up With: Giacomo Mariee MD When: in 2 weeks, please call to make an appointment. Disposition: Home Minutes spent on discharge:: 35 Patient Condition:: Stable Medical Necessity - Tobacco Use Smoking Status: Never smoker Meaningful Use Info Meaningful Use Diagnoses (Choose all that apply): None applicable <Eliceo Christianson - Last Filed: 12/29/19 17:02> Discharge Date and Diagnosis - Primary Discharge Diagnosis Acute Problems: Active Problems Acute kidney injury (Acute) Renal calculi (Acute) Bladder stones (Acute) - Secondary Discharge Diagnosis Chronic Problems: Chronic Problems Ulcerative colitis (Chronic) Hypertension (Chronic) Hospital Course and Treatment Summary of Care Provided: The patient is a 84 year old M [] - Physical Exam Vitals/I&O's: Vital Signs Temp Pulse Resp BP Pulse Ox 98.2 F 81 20 H 121/61 H 94 12/29/19 15:10 12/29/19 15:10 12/29/19 15:10 12/29/19 15:10 12/29/19 15:10 Oxygen Flow Rate (L/min) 94 Oxygen Delivery Method Room Air Weight: 164 lb 3.205 oz Body Mass Index (BMI) 22.8 Intake and Output for Last 24 Hours 12/27/19 12/28/19 12/29/19 23:59 23:59 23:59 Intake Total 4128.33 / 4128.33 4075.00 / 4075.00 2300 / 2300 Output Total 2500 / 2500 2900 / 3000 450 / 450 Balance 1628.33 / 1628.33 1175.00 / 1075.00 1850 / 1850 Microbiology Past 72 Hours 12/27/19 07:50 Mucosa - Nose SARS-CoV-2 Antigen (Rapid) - Final Laboratory Results 12/29/19 07:35: WBC 17.0 H, RBC 3.64 L, Hgb 11.6 L, Hct 36.9 L, MCV 101.4 H, MCH 31.9, MCHC 31.4 L, RDW Std Deviation 52.9 H, RDW Coeff of Jeremiah 14.2, Plt Count 150, MPV 10.0 12/29/19 07:35: Sodium 138, Potassium 4.2, Chloride 110 H, Carbon Dioxide 19.0 L, Anion Gap 9, BUN 44 H, Creatinine 2.88 H, Estim Creat Clear Calc 20.11, Est GFR (MDRD) Af Amer 27 L, Est GFR (MDRD) Non-Af 22 L, BUN/Creatinine Ratio 15.3, Glucose 119 H, Calcium 8.0 L Current Medications Acetaminophen (Acetaminophen 325 Mg Tablet) 650 mg PO Q6H PRN PRN PRN Reason: Pain Score 1-10/Temp > 100.7 F Last Admin: 12/28/19 20:33 Dose: 650 mg Documented by: Calamine/Phenol (Menthol/Lanolin/Calamine/Znox 113 Gm Tube) 1 applic TOPICAL TID [facility]; Protocol Last Admin: 12/29/19 15:09 Dose: 1 applicatio Documented by: Morphine Sulfate (Morphine 2 Mg/Ml Syringe) 2 mg IV Q3H PRN PRN PRN Reason: Pain Score 6-10 Last Admin: 12/27/19 07:46 Dose: 2 mg Documented by: Ondansetron HCl (Ondansetron 4 Mg/2 Ml Vial) 4 mg IV Q8H PRN PRN PRN Reason: NAUSEA/VOMITING Oxycodone HCl (Oxycodone 5 Mg Tablet) 5 mg PO Q4H PRN PRN PRN Reason: Pain Score 4-5 Last Admin: 12/27/19 22:56 Dose: 5 mg Documented by: Verapamil HCl (Verapamil Sr 180 Mg Capsule) 180 mg PO DAILY [facility] Last Admin: 12/29/19 10:23 Dose: 180 mg Documented by: Addendum: Dr. Christianson I personally examined the patient and reviewed the chart. I agree with the above. 84-year-old male presenting from home with flank pain and difficulty emptying his bladder. He was found to have multiple ureteral stones and underwent intervention today by urology. He had bilateral stents placed today. Creatinine did rise a little bit today however now that he is postop, would anticipate improvement in his creatinine tomorrow. 12/28/2019: Doing well today. His creatinine is much improved compared to yesterday after his obstruction was resolved. Appreciate nephrology as well as urology input and assistance. We will have PT/OT evaluate him and if necessary set up for transfer to a assisted facility otherwise will plan for discharge home when stable. 12/29/2019: Feeling much better, Sandoval was removed per urology's instructions. His creatinine significantly improved from 4.56 yesterday to 2.88 on the day of discharge. He was evaluated by physical therapy who did not feel that he needed any therapy on discharge. I discussed with him the plan for discharge today and he expressed understanding the risk benefits of going home and he would like to go home today. He will need to follow-up with urology as an outpatient as well as his PCP and possible oncology for retroperitoneal lymphadenopathy and a questionable soft tissue mass near his left common iliac artery. Inpatient E&M: 94322 Disch Hosp
[2019-12-29] MEDS: Cephalexin 250 MG Capsule PO ×2 (12:35→21:03)
--- NOTE | 2019-12-29 13:48 | NURSING ---
Since taking out the ardon, pt has had urgency and voiding small amts of urine that is drk red. This nurse bladder scanned him for 92cc after voiding 50cc. Pt has voided a total of 150cc.
--- NOTE | 2019-12-29 14:18 | PCM.PN.REN ---
Patient Problems: Active and Suspected Problems Acute kidney injury (Acute) Renal calculi (Acute) Bladder stones (Acute) Subjective: no new events - Physical Exam Vitals/I&O's: Vital Signs Temp Pulse Resp BP Pulse Ox 97.9 F 80 20 H 135/68 H 96 12/29/19 10:24 12/29/19 10:24 12/29/19 10:24 12/29/19 10:24 12/29/19 10:24 Oxygen Flow Rate (L/min) 4 Oxygen Delivery Method Room Air Weight: 74.48 kg Body Mass Index (BMI) 22.8 Intake and Output for Last 24 Hours 12/27/19 12/28/19 12/29/19 23:59 23:59 23:59 Intake Total 4128.33 / 4128.33 4075.00 / 4075.00 2300 / 2300 Output Total 2500 / 2500 2900 / 3000 450 / 450 Balance 1628.33 / 1628.33 1175.00 / 1075.00 1850 / 1850 General: Alert, Oriented x3, Cooperative HEENT: Atraumatic, PERRLA, EOMI, Normocephalic Neck: Supple, No JVD, Negative Carotid Bruits Lungs: Clear to auscultation, Normal air movement Cardiovascular: Regular rate, No murmurs Abdomen: Bowel Sounds Present, Soft, Non Tender Extremities: No edema, Capillary Refill Less than 3 Seconds Skin: No rashes, No breakdown Musculoskeletal: No Tenderness to Palpation of Joints or Extremities Neurological: Cranial nerves II-XII grossly intact Psych/Mental Status: Normal Affect, Appropriate Microbiology Past 72 Hours 12/27/19 07:50 Mucosa - Nose SARS-CoV-2 Antigen (Rapid) - Final Laboratory Results 12/29/19 07:35: WBC 17.0 H, RBC 3.64 L, Hgb 11.6 L, Hct 36.9 L, MCV 101.4 H, MCH 31.9, MCHC 31.4 L, RDW Std Deviation 52.9 H, RDW Coeff of Jeremiah 14.2, Plt Count 150, MPV 10.0 12/29/19 07:35: Sodium 138, Potassium 4.2, Chloride 110 H, Carbon Dioxide 19.0 L, Anion Gap 9, BUN 44 H, Creatinine 2.88 H, Estim Creat Clear Calc 20.11, Est GFR (MDRD) Af Amer 27 L, Est GFR (MDRD) Non-Af 22 L, BUN/Creatinine Ratio 15.3, Glucose 119 H, Calcium 8.0 L Current Medications Acetaminophen (Acetaminophen 325 Mg Tablet) 650 mg PO Q6H PRN PRN PRN Reason: Pain Score 1-10/Temp > 100.7 F Last Admin: 12/28/19 20:33 Dose: 650 mg Documented by: Calamine/Phenol (Menthol/Lanolin/Calamine/Znox 113 Gm Tube) 1 applic TOPICAL TID [facility]; Protocol Last Admin: 12/29/19 05:17 Dose: 1 applicatio Documented by: Morphine Sulfate (Morphine 2 Mg/Ml Syringe) 2 mg IV Q3H PRN PRN PRN Reason: Pain Score 6-10 Last Admin: 12/27/19 07:46 Dose: 2 mg Documented by: Ondansetron HCl (Ondansetron 4 Mg/2 Ml Vial) 4 mg IV Q8H PRN PRN PRN Reason: NAUSEA/VOMITING Oxycodone HCl (Oxycodone 5 Mg Tablet) 5 mg PO Q4H PRN PRN PRN Reason: Pain Score 4-5 Last Admin: 12/27/19 22:56 Dose: 5 mg Documented by: Verapamil HCl (Verapamil Sr 180 Mg Capsule) 180 mg PO DAILY [facility] Last Admin: 12/29/19 10:23 Dose: 180 mg Documented by: Medical Necessity - Tobacco Use Smoking Status: Never smoker Assessment/Plan All Active Problems Acute kidney injury (Acute) Renal calculi (Acute) Bladder stones (Acute) Acute renal failure Likely chronic kidney disease Left renal atrophy Bilateral hydronephrosis seen on CT abdomen Acute renal failure was likely related to obstructive nephropathy. Currently has a Sandoval catheter in and stones were already removed. BUN and creatinine are better today. dc today
--- NOTE | 2019-12-29 15:23 | NURSING ---
Pt lives a hour [place] half away. Per patient, his who would be the one picking him up is working tonight and has to work later then she thought and it would be better for him to be discharged tomorrow. Dr. Mariee is aware and okay to cancel discharge.
--- NOTE | 2019-12-29 17:02 | PN_ITS ---
<JunoCherry TITLE LAWYER - Last Filed: 12/29/19 17:17> Patient Problems: Active and Suspected Problems Acute kidney injury (Acute) Renal calculi (Acute) Bladder stones (Acute) Subjective: Patient seen and examined. Denies complaints. Sandoval removed per urology. - Physical Exam Vitals/I&O's: Vital Signs Temp Pulse Resp BP Pulse Ox 98.2 F 81 20 H 121/61 H 94 12/29/19 15:10 12/29/19 15:10 12/29/19 15:10 12/29/19 15:10 12/29/19 15:10 Oxygen Flow Rate (L/min) 94 Oxygen Delivery Method Room Air Weight: 164 lb 3.205 oz Body Mass Index (BMI) 22.8 Intake and Output for Last 24 Hours 12/27/19 12/28/19 12/29/19 23:59 23:59 23:59 Intake Total 4128.33 / 4128.33 4075.00 / 4075.00 2300 / 2300 Output Total 2500 / 2500 2900 / 3000 450 / 450 Balance 1628.33 / 1628.33 1175.00 / 1075.00 1850 / 1850 General: Alert, Oriented x3, Cooperative HEENT: Atraumatic, PERRLA, EOMI, Normocephalic Neck: Supple, No JVD, Negative Carotid Bruits Lungs: Clear to auscultation, Normal air movement Cardiovascular: Regular rate, No murmurs Abdomen: Bowel Sounds Present, Soft, Non Tender Extremities: No clubbing, No cyanosis, No edema Skin: No rashes, No breakdown Musculoskeletal: No Tenderness to Palpation of Joints or Extremities Neurological: Cranial nerves II-XII grossly intact, Neuro grossly intact Psych/Mental Status: Normal Affect, Appropriate Microbiology Past 72 Hours 12/27/19 07:50 Mucosa - Nose SARS-CoV-2 Antigen (Rapid) - Final Laboratory Results 12/29/19 07:35: WBC 17.0 H, RBC 3.64 L, Hgb 11.6 L, Hct 36.9 L, MCV 101.4 H, MCH 31.9, MCHC 31.4 L, RDW Std Deviation 52.9 H, RDW Coeff of Jeremiah 14.2, Plt Count 150, MPV 10.0 12/29/19 07:35: Sodium 138, Potassium 4.2, Chloride 110 H, Carbon Dioxide 19.0 L , Anion Gap 9, BUN 44 H, Creatinine 2.88 H, Estim Creat Clear Calc 20.11, Est GFR (MDRD) Af Amer 27 L, Est GFR (MDRD) Non-Af 22 L, BUN/Creatinine Ratio 15.3, Glucose 119 H, Calcium 8.0 L Current Medications Acetaminophen (Acetaminophen 325 Mg Tablet) 650 mg PO Q6H PRN PRN PRN Reason: Pain Score 1-10/Temp > 100.7 F Last Admin: 12/28/19 20:33 Dose: 650 mg Documented by: Calamine/Phenol (Menthol/Lanolin/Calamine/Znox 113 Gm Tube) 1 applic TOPICAL TID [facility]; Protocol Last Admin: 12/29/19 15:09 Dose: 1 applicatio Documented by: Morphine Sulfate (Morphine 2 Mg/Ml Syringe) 2 mg IV Q3H PRN PRN PRN Reason: Pain Score 6-10 Last Admin: 12/27/19 07:46 Dose: 2 mg Documented by: Ondansetron HCl (Ondansetron 4 Mg/2 Ml Vial) 4 mg IV Q8H PRN PRN PRN Reason: NAUSEA/VOMITING Oxycodone HCl (Oxycodone 5 Mg Tablet) 5 mg PO Q4H PRN PRN PRN Reason: Pain Score 4-5 Last Admin: 12/27/19 22:56 Dose: 5 mg Documented by: Verapamil HCl (Verapamil Sr 180 Mg Capsule) 180 mg PO DAILY [facility] Last Admin: 12/29/19 10:23 Dose: 180 mg Documented by: Medical Necessity - Tobacco Use Smoking Status: Never smoker Assessment/Plan All Active Problems Acute kidney injury (Acute) Renal calculi (Acute) Bladder stones (Acute) 1. Acute kidney injury, post renal/obstructive uropathy secondary to renal calculi/bladder stones resulting in bilateral hydronephrosis-CT reports multiple stones in the bladder as well. UA unremarkable. Urology consulted. Patient underwent cystoscopy and dilation of urethral stricture, cystoscopy with right pyelogram, balloon dilation of right ureter with right ureteroscopy laser of stones and right stent placement, left pyelogram and left stent placement, cystolitholopaxy of bladder stones and transurethral resection of prostate 12/27/2019. Sandoval removed and patient will have voiding trial prior to discharge. Keflex initiated empirically. Patient will need follow-up with urology in 2 weeks. 2. Retroperitoneal lymphadenopathy/questionable soft tissue mass left common iliac artery-noted on CT. Recommend outpatient follow-up for further evalu ation/surveillance. 3. Ulcerative colitis status post colectomy-colostomy in place. 4. Hypertension-continue verapamil regimen. DVT prophylaxis-SCDs This patient was seen by JUAN RAMON Nayak under the supervision of Dr. Christianson. <Eliceo Christianson F - Last Filed: 12/29/19 17:30> - Physical Exam Vitals/I&O's: Vital Signs Temp Pulse Resp BP Pulse Ox 98.2 F 81 20 H 121/61 H 94 12/29/19 15:10 12/29/19 15:10 12/29/19 15:10 12/29/19 15:10 12/29/19 15:10 Oxygen Flow Rate (L/min) 94 Oxygen Delivery Method Room Air Weight: 164 lb 3.205 oz Body Mass Index (BMI) 22.8 Intake and Output for Last 24 Hours 12/27/19 12/28/19 12/29/19 23:59 23:59 23:59 Intake Total 4128.33 / 4128.33 4075.00 / 4075.00 2300 / 2300 Output Total 2500 / 2500 2900 / 3000 450 / 450 Balance 1628.33 / 1628.33 1175.00 / 1075.00 1850 / 1850 Microbiology Past 72 Hours 12/27/19 07:50 Mucosa - Nose SARS-CoV-2 Antigen (Rapid) - Final Laboratory Results 12/29/19 07:35: WBC 17.0 H, RBC 3.64 L, Hgb 11.6 L, Hct 36.9 L, MCV 101.4 H, MCH 31.9, MCHC 31.4 L, RDW Std Deviation 52.9 H, RDW Coeff of Jeremiah 14.2, Plt Count 150, MPV 10.0 12/29/19 07:35: Sodium 138, Potassium 4.2, Chloride 110 H, Carbon Dioxide 19.0 L , Anion Gap 9, BUN 44 H, Creatinine 2.88 H, Estim Creat Clear Calc 20.11, Est GFR (MDRD) Af Amer 27 L, Est GFR (MDRD) Non-Af 22 L, BUN/Creatinine Ratio 15.3, Glucose 119 H, Calcium 8.0 L Current Medications Acetaminophen (Acetaminophen 325 Mg Tablet) 650 mg PO Q6H PRN PRN PRN Reason: Pain Score 1-10/Temp > 100.7 F Last Admin: 12/28/19 20:33 Dose: 650 mg Documented by: Calamine/Phenol (Menthol/Lanolin/Calamine/Znox 113 Gm Tube) 1 applic TOPICAL TID [facility]; Protocol Last Admin: 12/29/19 15:09 Dose: 1 applicatio Documented by: Cephalexin (Cephalexin 250 Mg Capsule) 250 mg PO Q12 [facility] Morphine Sulfate (Morphine 2 Mg/Ml Syringe) 2 mg IV Q3H PRN PRN PRN Reason: Pain Score 6-10 Last Admin: 12/27/19 07:46 Dose: 2 mg Documented by: Ondansetron HCl (Ondansetron 4 Mg/2 Ml Vial) 4 mg IV Q8H PRN PRN PRN Reason: NAUSEA/VOMITING Oxycodone HCl (Oxycodone 5 Mg Tablet) 5 mg PO Q4H PRN PRN PRN Reason: Pain Score 4-5 Last Admin: 12/27/19 22:56 Dose: 5 mg Documented by: Verapamil HCl (Verapamil Sr 180 Mg Capsule) 180 mg PO DAILY [facility] Last Admin: 12/29/19 10:23 Dose: 180 mg Documented by: Addendum: Dr. Christianson I personally examined the patient and reviewed the chart. I agree with the above. 84-year-old male presenting from home with flank pain and difficulty emptying his bladder. He was found to have multiple ureteral stones and underwent intervention today by urology. He had bilateral stents placed today. Creatinine did rise a little bit today however now that he is postop, would anticipate improvement in his creatinine tomorrow. 12/28/2019: Doing well today. His creatinine is much improved compared to yesterday after his obstruction was resolved. Appreciate nephrology as well as urology input and assistance. We will have PT/OT evaluate him and if necessary set up for transfer to a snf facility otherwise will plan for discharge home when stable. 12/29/2019: Feeling much better, Sandoval was removed per urology's instructions. His creatinine significantly improved from 4.56 yesterday to 2.88 on the day of discharge. He was evaluated by physical therapy who did not feel that he needed any therapy on discharge. Unfortunately he was not able to urinate prior to discharge and therefore the discharge was canceled, also his works tonight and would be unable to pick him up regardless. Because of his leukocytosis we will continue him on Keflex secondary to the procedure and intervention he had in his ureters. Inpatient E&M: 19676 Subs Hosp L2
[2019-12-30] VITALS (7 sets, daily range): BP systolic 115–139; BP diastolic 55–69; PULSE 70–82; RESP 18; TEMP 36.6–36.8; O2SAT 93–97
--- NOTE | 2019-12-30 01:18 | NURSING ---
pt was c/o cp, pt states its muscle pain that he never felt before, vitals taken. made DR. Pennington aware, EKG ordered and done. pt refused to take pain meds. checked pt after EKG was done, pt was sleeping and lying comfortably in bed
--- NOTE | 2019-12-30 05:55 | EKG12_ITS ---
Test Reason : CHEST PAIN Blood Pressure : / mmHG Vent. Rate : 077 BPM Atrial Rate : 077 BPM P-R Int : 164 ms QRS Dur : 102 ms QT Int : 366 ms P-R-T Axes : -15 -30 044 degrees QTc Int : 414 ms Sinus rhythm with occasional Premature ventricular complexes Left axis deviation Abnormal ECG When compared with ECG of 27-DEC-2019 12:10, MANUAL COMPARISON REQUIRED, DATA IS UNCONFIRMED Confirmed by JEANNA VILLARREAL, JUDY ([id number]), news videotape editor ODESSA MARCELINO ([id number]) on 12/31/2019 9:39:32 AM Referred By: BILL Confirmed By:JUDY MEEKS MD
[2019-12-30] MEDS: Menthol/Lanolin/Calamine/Znox 113 GM Tube 1 APPLIC TOPICAL (07:01)
[2019-12-30 07:51] LABS: Hematocrit 38.6 % (40-54); Mean Corp Hgb Conc 31.1 g/dL (32-36); Mean Corpuscular Hgb 31.3 pg (27.0-32.0); Mean Corpuscular Volume 100.5 fL (80-94); Mean Platelet Vol. 10.3 fl (6.2-12.0); Platelet Count 208 K/mm3 (150-450); RBC Distribution Width CV 14.1 % (11.6-14.6); RBC Distribution Width SD 51.8 fl (35.1-43.9); Red Blood Count 3.84 M/mm3 (4.6-6.2); White Blood Count 15.3 K/mm3 (4.4-11.0)
[2019-12-30 08:04] LABS: Anion Gap 9 (5-15); BUN 37 mg/dL (7-18); BUN/Creat Ratio 17.5 RATIO (10-20); Calcium,Total 8.4 mg/dL (8.5-10.1); Chloride 108 mmol/L (98-107); Creatinine, Serum 2.11 mg/dL (0.70-1.30); EST Glomerular Filtration Rate 32 mL/min (>60); Est Glom Filt Rate - Afr Amer 39 mL/min (>60); Estimated Creatinine Clearance 27.45 ml/min; Glucose 109 mg/dL (74-106); Potassium 3.9 mmol/L (3.5-5.1); Sodium Level 134 mmol/L (136-145)
[2019-12-30] MEDS: Cephalexin 250 MG Capsule PO (08:45)
[2019-12-30] MEDS: Verapamil SR 180 MG CAPSULE PO (08:46)
--- NOTE | 2019-12-30 11:07 | DCINST_ITS ---
- Discharge Diagnoses Current Active Problems: Current Active and Chronic Problems Acute kidney injury (Acute) Renal calculi (Acute) Bladder stones (Acute) Ulcerative colitis (Chronic) Hypertension (Chronic) You will use the following diet at home:: No restrictions, Other - Increase fluid intake Discharge Activity: Return to Normal Activity Call your doctor if you observe: Fever of 101 or Higher, Inability to urinate Additional Instructions: May use Tylenol as needed for pain. HOLD home aspirin regimen prior to surgery monday. Do not resume until ok per urology. Allergies/Adverse Reactions: Allergies No Known Allergies Allergy (Verified 12/26/19 10:44) Medications to take at Discharge Verapamil HCl [Verapamil ER] 180 mg PO DAILY 05/30/14 Aspirin [Adult Aspirin Regimen] 91 mg PO DAILY 10/16/18 Cephalexin [Keflex] 250 mg PO Q12 #10 cap 12/29/19 The following prescriptions were given: Cephalexin [Keflex] 250 mg PO Q12 #10 cap [facility] Primary Care Physician: Reyna Hoff MD [Primary Care Provider] - Please follow up with your Primary Care Physician in: 1 Week Test Results: Test results from this visit will be discussed in further detail at your follow- up appointment, if applicable. Please Follow Up With: Giacomo Mariee MD When: As scheduled Monday for surgery Proposed Discharge Date: 12/29/19
--- NOTE | 2019-12-30 11:10 | PCM.DC.SUM ---
<Cherry Fraire ACCOUNT SUPPORT REP - Last Filed: 12/30/19 11:16> Discharge Date and Diagnosis - Problem List Patient Problems: Active and Suspected Problems Acute kidney injury (Acute) Renal calculi (Acute) Bladder stones (Acute) Date of Admission: 12/26/19 Date of Discharge: 12/30/19 - Primary Discharge Diagnosis Acute Problems: Active Problems 1. Acute kidney injury, post renal/obstructive uropathy secondary to renal calculi/bladder stones resulting in bilateral hydronephrosis 2. Retroperitoneal lymphadenopathy/questionable soft tissue mass left common iliac artery-noted on CT. 3. Ulcerative colitis status post colectomy 4. Hypertension - Secondary Discharge Diagnosis Chronic Problems: Chronic Problems Ulcerative colitis (Chronic) Hypertension (Chronic) Hospital Course and Treatment Imaging Results: Diagnostic Data Abdomen/Pelvis CT 12/26/19 12:22 IMPRESSION: Multiple calculi are seen at the base of the bladder. Atrophy of the left kidney. Bilateral hydronephrosis. Multiple nonobstructive calculi are seen in the right renal calyces. Status post colostomy and right lower quadrant. Retroperitoneal lymphadenopathy. Electronically Signed: Morgan Alejandra, at 12:45 EST , Service support , Dr. Mariee- Urology Dr. Lerma- Nephrology Operations: - - cystoscopy and dilation of urethral stricture, cystoscopy with right pyelogram, balloon dilation of right ureter with right ureteroscopy laser of stones and right stent placement, left pyelogram and left stent placement, cystolitholopaxy of bladder stones and transurethral resection of prostate. Procedures: None Summary of Care Provided: The patient is a 84 year old M admitted 12/26/2019 due to flank pain and difficulty emptying bladder. 1. Acute kidney injury, post renal/obstructive uropathy secondary to renal calculi/bladder stones resulting in bilateral hydronephrosis-CT reports multiple stones in the bladder as well. UA unremarkable. Urology consulted. Patient underwent cystoscopy and dilation of urethral stricture, cystoscopy with right pyelogram, balloon dilation of right ureter with right ureteroscopy laser of stones and right stent placement, left pyelogram, cystolitholopaxy of bladder stones and transurethral resection of prostate 12/27/2019. Sandoval removed and patient voiding without difficulty. Rx for renally dosed Keflex empirically at discharge. Renal function significantly improved. Recommend repeat BMP in 1 week by primary care provider. Follow-up with urology on Monday with plans for further intervention with left renal stent placement. Hold aspirin prior to Monday and patient instructed to continue to hold aspirin until approved by urology to resume. 2. Retroperitoneal lymphadenopathy/questionable soft tissue mass left common iliac artery-noted on CT. Recommend outpatient follow-up for further evaluation/surveillance. 3. Ulcerative colitis status post colectomy-colostomy in place. 4. Hypertension-continue verapamil regimen. General: Alert, Oriented x3, Cooperative HEENT: Atraumatic, PERRLA, EOMI, Normocephalic Neck: Supple, No JVD, Negative Carotid Bruits Lungs: Clear to auscultation, Normal air movement Cardiovascular: Regular rate, No murmurs Abdomen: Bowel Sounds Present, Soft, Non Tender Extremities: No edema, Capillary Refill Less than 3 Seconds Skin: No rashes, No breakdown Musculoskeletal: No Tenderness to Palpation of Joints or Extremities Neurological: Cranial nerves II-XII grossly intact, Neuro grossly intact Psych/Mental Status: Normal Affect, Appropriate Patient seen and examined prior to discharge. Physical assessment as noted above. Patient is stable for discharge with follow up recommendations as noted above. This patient was seen by JUAN RAMON Nayak under the supervision of Dr. Aguila. Patient Problems: Active and Suspected Problems Acute kidney injury (Acute) Renal calculi (Acute) Bladder stones (Acute) - Physical Exam Vitals/I&O's: Vital Signs Temp Pulse Resp BP Pulse Ox 97.8 F 82 18 139/59 H 93 12/30/19 08:45 12/30/19 08:45 12/30/19 08:45 12/30/19 08:45 12/30/19 08:45 Oxygen Flow Rate (L/min) 94 Oxygen Delivery Method Room Air Weight: 164 lb 3.205 oz Body Mass Index (BMI) 22.8 Intake and Output for Last 24 Hours 12/28/19 12/29/19 12/30/19 23:59 23:59 23:59 Intake Total 4075.00 / 4075.00 2850 / 2850 Output Total 2900 / 3000 1500 / 2380 1530 / 1530 Balance 1175.00 / 1075.00 1350 / 470 -1530 / -1530 Microbiology Past 72 Hours 12/27/19 07:50 Mucosa - Nose SARS-CoV-2 Antigen (Rapid) - Final Laboratory Results 12/30/19 07:12: WBC 15.3 H, RBC 3.84 L, Hgb 12.0 L, Hct 38.6 L, MCV 100.5 H, MCH 31.3, MCHC 31.1 L, RDW Std Deviation 51.8 H, RDW Coeff of Jeremiah 14.1, Plt Count 208, MPV 10.3 12/30/19 07:12: Sodium 134 L, Potassium 3.9, Chloride 108 H, Carbon Dioxide 17.0 L, Anion Gap 9, BUN 37 H, Creatinine 2.11 H, Estim Creat Clear Calc 27.45, Est GFR (MDRD) Af Amer 39 L, Est GFR (MDRD) Non-Af 32 L, BUN/Creatinine Ratio 17.5, Glucose 109 H, Calcium 8.4 L Current Medications Acetaminophen (Acetaminophen 325 Mg Tablet) 650 mg PO Q6H PRN PRN PRN Reason: Pain Score 1-10/Temp > 100.7 F Last Admin: 12/28/19 20:33 Dose: 650 mg Documented by: Calamine/Phenol (Menthol/Lanolin/Calamine/Znox 113 Gm Tube) 1 applic TOPICAL TID [facility]; Protocol Last Admin: 12/30/19 07:01 Dose: 1 applicatio Documented by: Cephalexin (Cephalexin 250 Mg Capsule) 250 mg PO Q12 [facility] Last Admin: 12/30/19 08:45 Dose: 250 mg Documented by: Ondansetron HCl (Ondansetron 4 Mg/2 Ml Vial) 4 mg IV Q8H PRN PRN PRN Reason: NAUSEA/VOMITING Oxycodone HCl (Oxycodone 5 Mg Tablet) 5 mg PO Q4H PRN PRN PRN Reason: Pain Score 4-5 Last Admin: 12/27/19 22:56 Dose: 5 mg Documented by: Verapamil HCl (Verapamil Sr 180 Mg Capsule) 180 mg PO DAILY [facility] Last Admin: 12/30/19 08:46 Dose: 180 mg Documented by: Discharge Diet: No Restrictions Discharge Activity: Return to Normal Activity Additional Activity Instructions:: Please be aware that pain medications may cause nausea. You should typically eat light foods as you take your pain medication. Pain medication may cause constipation, if this is a problem for you, please discuss with your doctor. Call your doctor if you observe: Fever of 101 or Higher, Inability to urinate Home Medications: Medications to take at Discharge Verapamil HCl [Verapamil ER] 180 mg PO DAILY 05/30/14 Aspirin [Adult Aspirin Regimen] 91 mg PO DAILY 10/16/18 Cephalexin [Keflex] 250 mg PO Q12 #10 cap 12/29/19 Following Prescriptions Were Given to Patient: Cephalexin [Keflex] 250 mg PO Q12 #10 cap Transmission Status: Received by [facility] 1936 Primary Care Physician: Reyna Hoff MD [Primary Care Provider] - Please follow up with your Primary Care Physician in: 1 Week Please Follow Up With: Giacomo Mariee MD When: As scheduled Monday for surgery Disposition: Home Minutes spent on discharge:: 35 Patient Condition:: Stable Medical Necessity - Tobacco Use Smoking Status: Never smoker Meaningful Use Info Meaningful Use Diagnoses (Choose all that apply): None applicable <[place] - Last Filed: 12/31/19 07:19> Discharge Date and Diagnosis - Primary Discharge Diagnosis Acute Problems: Active Problems Acute kidney injury (Acute) Renal calculi (Acute) Bladder stones (Acute) - Secondary Discharge Diagnosis Chronic Problems: Chronic Problems Ulcerative colitis (Chronic) Hypertension (Chronic) Hospital Course and Treatment Summary of Care Provided: This patient was seen in conjunction with Cherry Fraire NP. I have independently interviewed and examined the patient and reviewed pertinent historical, laboratory, and other data. Please refer to her note for patient's presentation, findings, and recommendations. 84-year-old male who was admitted on 12/26/19 with flank pain and difficulty emptying his bladder. CT of the abdomen pelvis showed multiple stones in the bladder as well as bilateral hydronephrosis with renal calculi/bladder stones. His UA was unremarkable. Urology was consulted. He was admitted with a creatinine of 4.18. His baseline creatinine was 1.84. He underwent multiple procedures including cystoscopy and dilatation of urethral stricture, cystoscopy right retrograde pyelogram, balloon dilatation of the right ureter, right ureteroscopy laser of stones and right stent placement, left retrograde pyelogram and left stent placement. Cystoscopy and cystoscopy litholap patency of bladder stones, multiple letter down to 1.5 cm in size, transurethral resection of the prostate. Urology and nephrology were consulted in this admission. During thus admission, patient continued to do well. An attempt at removing his Sandoval catheter on 12/29/19 resulted in urine retention for which his discharge was canceled. Patient was able to void and was discharged on 12/30/19. Follow-up with urology and with his primary care doctor in the outpatient. He will repeat blood work within a week to follow-up on kidney function. On the day of discharge, patient was seen and examined. He denied any new complaint. He is able to void, urine is dark. Advised that he drinks lots of urine. Vitals were reviewed -stable Physical Exam: Gen: Comfortable, not pale, not jaundiced, alert oriented x3 CVS:HS I +II, regular, no murmurs RESP: Diminished at lung bases GI: BS present and normal, nontender, no palpable organs EXT:No edema - Physical Exam Vitals/I&O's: Vital Signs Temp Pulse Resp BP Pulse Ox 97.9 F 70 18 115/55 L 94 12/30/19 12:35 12/30/19 12:35 12/30/19 12:35 12/30/19 12:35 12/30/19 12:35 Oxygen Flow Rate (L/min) 94 Oxygen Delivery Method Room Air Weight: 74.48 kg Body Mass Index (BMI) 22.8 Intake and Output for Last 24 Hours 12/29/19 12/30/19 12/31/19 23:59 23:59 23:59 Intake Total 2850 / 2850 Output Total 1500 / 2380 1530 / 1530 Balance 1350 / 470 -1530 / -1530 Laboratory Results 12/30/19 07:12: WBC 15.3 H, RBC 3.84 L, Hgb 12.0 L, Hct 38.6 L, MCV 100.5 H, MCH 31.3, MCHC 31.1 L, RDW Std Deviation 51.8 H, RDW Coeff of Jeremiah 14.1, Plt Count 208, MPV 10.3 12/30/19 07:12: Sodium 134 L, Potassium 3.9, Chloride 108 H, Carbon Dioxide 17.0 L, Anion Gap 9, BUN 37 H, Creatinine 2.11 H, Estim Creat Clear Calc 27.45, Est GFR (MDRD) Af Amer 39 L, Est GFR (MDRD) Non-Af 32 L, BUN/Creatinine Ratio 17.5, Glucose 109 H, Calcium 8.4 L Inpatient E&M: [id number] Disch Hosp
--- NOTE | 2019-12-30 16:30 | PCM.PN.REN ---
Patient Problems: Active and Suspected Problems Acute kidney injury (Acute) Renal calculi (Acute) Bladder stones (Acute) Subjective: no new complaints - Physical Exam Vitals/I&O's: Vital Signs Temp Pulse Resp BP Pulse Ox 97.9 F 70 18 115/55 L 94 12/30/19 12:35 12/30/19 12:35 12/30/19 12:35 12/30/19 12:35 12/30/19 12:35 Oxygen Flow Rate (L/min) 94 Oxygen Delivery Method Room Air Weight: 74.48 kg Body Mass Index (BMI) 22.8 Intake and Output for Last 24 Hours 12/28/19 12/29/19 12/30/19 23:59 23:59 23:59 Intake Total 4075.00 / 4075.00 2850 / 2850 Output Total 2900 / 3000 1500 / 2380 1530 / 1530 Balance 1175.00 / 1075.00 1350 / 470 -1530 / -1530 General: Alert, Oriented x3, Cooperative HEENT: Atraumatic, PERRLA, EOMI, Normocephalic Neck: Supple, No JVD, Negative Carotid Bruits Lungs: Clear to auscultation, Normal air movement Cardiovascular: Regular rate, No murmurs Abdomen: Bowel Sounds Present, Soft, Non Tender Extremities: No edema, Capillary Refill Less than 3 Seconds Skin: No rashes, No breakdown Musculoskeletal: No Tenderness to Palpation of Joints or Extremities Neurological: Cranial nerves II-XII grossly intact Psych/Mental Status: Normal Affect, Appropriate Laboratory Results 12/30/19 07:12: WBC 15.3 H, RBC 3.84 L, Hgb 12.0 L, Hct 38.6 L, MCV 100.5 H, MCH 31.3, MCHC 31.1 L, RDW Std Deviation 51.8 H, RDW Coeff of Jeremiah 14.1, Plt Count 208, MPV 10.3 12/30/19 07:12: Sodium 134 L, Potassium 3.9, Chloride 108 H, Carbon Dioxide 17.0 L, Anion Gap 9, BUN 37 H, Creatinine 2.11 H, Estim Creat Clear Calc 27.45, Est GFR (MDRD) Af Amer 39 L, Est GFR (MDRD) Non-Af 32 L, BUN/Creatinine Ratio 17.5, Glucose 109 H, Calcium 8.4 L Medical Necessity - Tobacco Use Smoking Status: Never smoker Assessment/Plan All Active Problems Acute kidney injury (Acute) Renal calculi (Acute) Bladder stones (Acute) Acute renal failure Likely chronic kidney disease Left renal atrophy Bilateral hydronephrosis seen on CT abdomen Acute renal failure was likely related to obstructive nephropathy. Currently has a Sandoval catheter in and stones were already removed. BUN and creatinine are better today. dc today
== END 2019-12-30 12:56 | disposition home or self-care (01) | DRG 660 ==
LOC: ED 16:27 → MS3 17:40
PROVIDERS: Nurse Practitioner Family; Urology; Admitting Provider Student in an Organized Health Care Education/Training Program; Emergency Provider Emergency Medicine; PCP Family Medicine; Visit Provider Internal Medicine
PROC: 0TJ98ZZ Inspection of Ureter, Via Natural or Artificial Opening Endoscopic (ICD-10-PCS; CPT 52352; principal; 2019-12-27 11:50)
DX: N13.2 Hydronephrosis with renal and ureteral calculous obstruction (principal); K51.90 Ulcerative colitis, unspecified, without complications; N13.8 Other obstructive and reflux uropathy; N21.0 Calculus in bladder; N40.1 Benign prostatic hyperplasia with lower urinary tract symptoms; I12.9 Hypertensive chronic kidney disease with stage 1 through stage 4 chronic kidney disease, or unspecified chronic kidney disease; N17.9 Acute kidney failure, unspecified; N35.919 Unspecified urethral stricture, male, unspecified site; N18.30 Chronic kidney disease, stage 3 unspecified; R59.0 Localized enlarged lymph nodes; R19.09 Other intra-abdominal and pelvic swelling, mass and lump; D72.829 Elevated white blood cell count, unspecified; Z90.49 Acquired absence of other specified parts of digestive tract; Z93.3 Colostomy status; Z79.82 Long term (current) use of aspirin; Z79.899 Other long term (current) drug therapy
CPT/HCPCS: 36415; 74176; 76000; 80048; 80053; 81001; 83690; 85025; 85027; 87426; 88300; 88305; 88307; 93005; 97110; 97162; 97166; 97535; 99285; J7030; P9612; A4216; C1726; C1769; C2617; J2405

== ENCOUNTER 2020-01-03 07:32 | Day surgery (SDC) | payer MEDICARE, SELFPAY ==
[2019-12-27 08:00] VITALS: BMI 22.8
[2020-01-03] VITALS (7 sets, daily range): BP systolic 140–158; BP diastolic 78–89; PULSE 64–76; RESP 16; TEMP 36.5–37; O2SAT 89–100; BMI 24.2
--- NOTE | 2020-01-03 08:25 | PCM.HP.STD ---
History of Present Illness Date of Admission: 01/03/20 Chief Complaint: Status post bilateral stent placement for obstructing bilateral stones The patient is a 84 year old male who was admitted last week he had bladder stones and bilateral obstruction he underwent cystoscopy laser bladder stones transurethral resection stent placement both sides. Today he comes back again to do bilateral ureteroscopy laser stones on both sides clear as much as possible stone obstruction on both the left and right side. Past Medical History Past Medical History (Chronic Problems): Chronic Problems Ulcerative colitis (Chronic) Hypertension (Chronic) Allergies No Known Allergies Allergy (Verified 12/31/19 12:19) Home Medications: Ambulatory Orders Medication Instructions Recorded Verapamil HCl [Verapamil ER] 180 mg PO DAILY 05/30/14 Aspirin [Adult Aspirin Regimen] 81 mg PO DAILY 10/16/18 Cephalexin [Keflex] 250 mg PO Q12 #10 cap 12/29/19 Surgical History: appendectomy, colectomy - Colectomy w/ ileostomy., total hip arthroplasty - Right, tonsillectomy, - - Hernia repair Psychiatric History: No pertinent psych hx Smoking Status: Never smoker Tobacco Use: Non-smoker - *Family History Maternal History Items: - Paternal History Items: - Review of Systems Constitutional: Denies: Chills, Fever, Weight Change HEENT: Denies: Head Aches, Sinus Congestion, Sinus Drainage Cardiovascular: Denies: Chest Pain, Palpitations Respiratory: Denies: Cough, Shortness of breath at rest, Sputum production Gastrointestinal: Denies: Abdominal Pain, Nausea, Vomiting Genitourinary: Denies: Dysuria Musculoskeletal: Denies: Joint Pain, Joint Tenderness Skin: Denies: Rash, Wounds Neurological: Denies: Numbness, Tingling, Focal weakness Psychiatric: Denies: Anxiety, Depression, Homicidal Ideations, Suicidal Ideations Hematologic/ Lymphatic: Denies: Easy Bruising, Easy Bleeding VTE Information - Inpt Only VTE Present on Admission: No - Physical Exam Vitals/I&O's: Vital Signs Temp Pulse Resp BP Pulse Ox 98.6 F 71 16 157/79 H 100 01/03/20 08:15 01/03/20 08:15 01/03/20 08:15 01/03/20 08:15 01/03/20 08:15 Oxygen Delivery Method Room Air Weight: 76.6 kg Body Mass Index (BMI) 24.2 General: Alert, Oriented x3, Cooperative HEENT: Atraumatic, PERRLA, EOMI, Normocephalic Neck: Supple, No JVD, Negative Carotid Bruits Lungs: Clear to auscultation, Normal air movement Cardiovascular: Regular rate, No murmurs Abdomen: Bowel Sounds Present, Soft, Non Tender Extremities: No edema, Capillary Refill Less than 3 Seconds Skin: No rashes, No breakdown Musculoskeletal: No Tenderness to Palpation of Joints or Extremities Neurological: Cranial nerves II-XII grossly intact Psych/Mental Status: Normal Affect, Appropriate Current Medications Cefazolin Sodium 2 gm/ Sodium (Chloride) 110 mls @ 150 mls/hr IV PREOP ONE Stop: 01/03/20 14:33 Assessment/Plan All Active Problems Acute kidney injury (Acute) Renal calculi (Acute) Bladder stones (Acute) Plan to proceed with bilateral ureteroscopy and laser stones.
--- NOTE | 2020-01-03 08:29 | DCINST_ITS ---
Discharge Activity: Return to Normal Activity Suture Line Care: Avoid Pulling/Pushing, Avoid Pinching/Bending Allergies/Adverse Reactions: Allergies No Known Allergies Allergy (Verified 12/31/19 12:19) Medications to take at Discharge Verapamil HCl [Verapamil ER] 180 mg PO DAILY 05/30/14 Aspirin [Adult Aspirin Regimen] 81 mg PO DAILY 10/16/18 Cephalexin [Keflex] 250 mg PO Q12 #10 cap 12/29/19 Primary Care Physician: Reyna Hoff MD [Primary Care Provider] - Test Results: Test results from this visit will be discussed in further detail at your follow- up appointment, if applicable. Please Follow Up With: Giacomo Mariee MD When: in 2 weeks, please call to make an appointment.
[2020-01-03] MEDS: Lactated Ringers 1,000 ML 100 ML IV (08:30)
--- NOTE | 2020-01-03 08:46 | PCM.OPRPT ---
Report of Operation Date of Procedure: 01/03/20 Pre-Operative Diagnosis: Bladder cancer Post-Operative Diagnosis: Same Surgery/Procedure Performed:: Transurethral resection of a bladder tumor in the trigone Description of Surgical Findings:: 84-year-old male taken back to the operating room at the smooth induction of general anesthesia he was placed in dorsolithotomy position the penis and urethra were prepped and draped in usual sterile fashion I first dilated the urethra I went into the bladder with a 24 [place] noncontinuous flow Olympus resectoscope inspected the bladder I found 3 tumors in the trigone of the bladder. Total size about 2 cm in size these were resected sent off a small tissue as a specimen and the rest the tumors were cauterized completely down to the base. The left and right ureter orifice were uninjured there was no bleeding at the end of the procedure. I drained the bladder put a catheter in and put 40 cc of mitomycin-C into the bladder. Patient anesthetic was reversed taken back to PACU in good condition. Type of Anesthesia:: General Drains: none - Admit VTE Documentation VTE Present on Admission: No VTE Mechan Device Prophylaxis: SCD's
[2020-01-03] MEDS: Cefazolin 2 GM in 0.9% Normal Saline 100 ML IV (09:11)
--- NOTE | 2020-01-03 10:29 | DCINST_ITS ---
Discharge Diet: Light diet - advance as tolerated Discharge Activity: Return to Normal Activity Suture Line Care: Avoid Pulling/Pushing, Avoid Pinching/Bending Allergies/Adverse Reactions: Allergies No Known Allergies Allergy (Verified 12/31/19 12:19) Medications to take at Discharge Verapamil HCl [Verapamil ER] 180 mg PO DAILY 05/30/14 Aspirin [Adult Aspirin Regimen] 81 mg PO DAILY 10/16/18 Cephalexin [Keflex] 250 mg PO Q12 #10 cap 12/29/19 Primary Care Physician: Reyna Hoff MD [Primary Care Provider] - Test Results: Test results from this visit will be discussed in further detail at your follow- up appointment, if applicable. Please Follow Up With: Giacomo Mariee MD - [phone] When: please call to make an appointment.
--- NOTE | 2020-01-03 10:30 | PCM.OPRPT ---
Report of Operation Date of Procedure: 01/03/20 Pre-Operative Diagnosis: Status post bilateral stent placement for obstructing stones in the right ureter and also obstruction of the left ureter. Post-Operative Diagnosis: The same, tortuosity and mild strictures in the left ureter, he has kidney stones and ureteral stones in the right ureter with a severe stricture that was balloon dilated Surgery/Procedure Performed:: Cystoscopy left retrograde pyelogram left ureteroscopy diagnostic and removal of stent. Cystoscopy right retrograde pyelogram, balloon dilation of the right mid ureteral stricture and laser lithotripsy of stones and right stent placement. Description of Surgical Findings:: 84-year-old male who is in very poor physical health he has chronic perineal redness and irritation the family says this is chronic. Last week he underwent cystoscopy and laser lithotripsy and cystolitholapaxy of some bladder stones and TURP. At that point stents were placed bilaterally because of obstruction. Now comes back to look at both the kidneys with ureteroscopy possible laser. Patient was taken back to the operating room after smooth induction of general anesthesia he was placed in dorsolithotomy position. Went into the bladder with a 21 Macedonian rigid cystourethroscope. The entire urethra length especially the proximal urethra was very inflamed with scar tissue there is also some scar tissue in the bulbar urethra was able to get through this with a 21 scope but is very raw and raw scar tissue. Got to the sphincter okay and then the prostate had open prostate from prior TURP. I then identified the left ureteral orifice and the left stent grabbed the stent with a grasper and pulled out the meatus advance a wire through the stent and then over the wire I went in with the flexible ureteroscope it was quite difficult to get up the left ureter a lot of tortuosity a lot of inflammation along the course of the ureter peers to be a chronically infected up in the kidney there was some debris I work my way down the ureter very tortuous ureter no stones were seen with a lot of tortuosity is ureter but no no clear stricture some mild hair pin turns coming down. After coming down that side we performed a retrograde pyelogram contrast is draining but somewhat slowly since had not to place a stent on that side. I then went to the right side and grabbed the right stent pulled out the meatus advance a wire the stent all the way to the kidney and then I went in with a flexible ureteroscope over the wire but the stones along the course of the ureter then got to the mid ureter and could not get through as it was too tight so then I backed out the scope. Then over the wire advanced a balloon dilator 15 Macedonian 5 cm balloon dilator and I balloon dilated a tight stricture area in the mid right ureter. The waist up went away on the after balloon dilated and this opened up and then I went up with the flexible ureteroscope was barely barely able to get through that tight area went up to the kidney in the kidney I found a lot of debris and a lot of necrotic tissue some stone stuck in the necrotic tissue this was lasered and then I work my way down the ureter and the a lot of stones along the course of the ureter these were radiolucent stones I think he is got uric acid stones so I lasered the stones and I worked my way down and lasered some more got to the very tight hairpin tight area in the mid ureter and then lasered the stones in the distal ureter then he had some stone the distal ureter I could reach with the flexible scope side left cold is flexible scope out we went in with a semirigid and then lasered the stones with a semirigid scope. I then tried advance a wire up the right kidney but again he had a very tight area in the mid right ureter and I had to use a Pollick catheter and I tried multiple times in and finally was able to get through the area with a Glidewire and then I advanced a stent on the right side is a 6 Macedonian by 26 cm stent once the stent was in good position and pulled the wire the stent coiled in the kidney bladder good position. My plan is to place the patient on allopurinol for his uric acid stones potassium citrate to dissolve the stones and antibiotics for at least 10 days and pain medicine. I spoke to the caregiver and I let her know the results of the surgery and will see him back in about 10 days to remove the stent in the office 11 the long string of the stent. Type of Anesthesia:: General Drains: none - Admit VTE Documentation VTE Present on Admission: No VTE Mechan Device Prophylaxis: SCD's
== END 2020-01-03 13:00 | disposition home or self-care (01) ==
LOC: SDC 07:33 → AC 07:34
PROVIDERS: PCP Family Medicine; Referring Provider Urology; Visit Provider Urology
PROC: 0TJ98ZZ Inspection of Ureter, Via Natural or Artificial Opening Endoscopic (ICD-10-PCS; CPT 52352; principal; 2020-01-03 09:35)
DX: N20.2 Calculus of kidney with calculus of ureter (principal); N13.5 Crossing vessel and stricture of ureter without hydronephrosis; I49.3 Ventricular premature depolarization; I10 Essential (primary) hypertension; Z90.49 Acquired absence of other specified parts of digestive tract; Z79.82 Long term (current) use of aspirin
CPT/HCPCS: 52315; 52356; 76000; J7120; C1726; C1769; C2617; J2405

== ENCOUNTER 2020-01-06 15:23 | Inpatient (IN) | payer MEDICARE, SELFPAY ==
[2020-01-03 08:15] VITALS: BMI 24.2
[2020-01-06 15:24] VITALS: BP 144/56; PULSE 72; RESP 18; TEMP 37.3; O2SAT 93; BMI 24.0
[2020-01-06] MEDS: Ondansetron 4 MG/2 ML Vial IV (16:41)
[2020-01-06 17:05] LABS: Absolute Lymphocyte Count 0.84 X10^3/uL (0.83-4.51); Absolute Neutrophil Count 28.4 X10^3/uL (2.0-7.7); Basophil# 0.05 X10^3/uL; Basophil% 0.2 % (0-1); Eosinophil# 0.02 X10^3/uL; Eosinophils% 0.1 % (0-5); Hematocrit 41.1 % (40-54); Hemoglobin 11.8 g/dL (13.0-16.5); Lymphocyte # 0.84 X10^3/ul (4.0); Lymphocyte % 2.7 % (19-41); Mean Corp Hgb Conc 28.7 g/dL (32-36); Mean Corpuscular Hgb 30.4 pg (27.0-32.0); Mean Corpuscular Volume 105.9 fL (80-94); Mean Platelet Vol. 10.3 fl (6.2-12.0); Monocyte# 1.71 X10^3/uL; Monocyte% 5.4 % (0-10); NRBC Flagged by Analyzer 0 % (0-5); Neutrophil % 90.5 % (47-70); POSITIVE COUNT YES; POSITIVE DIFFERENTIAL YES; Platelet Count 188 K/mm3 (150-450); RBC Distribution Width CV 14.3 % (11.6-14.6); RBC Distribution Width SD 56.7 fl (35.1-43.9); Red Blood Count 3.88 M/mm3 (4.6-6.2); White Blood Count 31.4 K/mm3 (4.4-11.0)
[2020-01-06 17:06] LABS: Bacteria 0 SEEN /hpf (None Seen); Mucous, Urine 0 SEEN /hpf (<or=2+); Red Blood Cells-Urine 0 SEEN /hpf (0-5); Squamous Epithelial Cells - UA 0 SEEN /hpf (0-5)
[2020-01-06 17:11] LABS: Differential Indicated SCAN CRITERIA MET
[2020-01-06 17:20] LABS: ALB/GLOB Ratio 0.4 RATIO (0.9-2.4); AST(SGOT) 14 U/L (15-37); Alanine Aminotransfer ALT/SGPT 13 U/L (16-61); Albumin, Serum 2.5 g/dL (3.2-5.0); Alkaline Phosphatase 185 U/L (45-117); Anion Gap 6 (5-15); BUN 34 mg/dL (7-18); BUN/Creat Ratio 19.9 RATIO (10-20); Calcium,Total 8.8 mg/dL (8.5-10.1); Chloride 108 mmol/L (98-107); Creatinine, Serum 1.71 mg/dL (0.70-1.30); EST Glomerular Filtration Rate 41 mL/min (>60); Est Glom Filt Rate - Afr Amer 49 mL/min (>60); Globulin 5.6 g/dL (2.2-4.2); Glucose 99 mg/dL (74-106); Potassium 4.7 mmol/L (3.5-5.1); Protein, Total 8.1 g/dL (6.4-8.2); Sodium Level 134 mmol/L (136-145)
[2020-01-06 17:22] LABS: Color, Urine Yellow (Yellow); Glucose, Dipstick Normal (Normal); Ketone-Dipstick Negative (Negative); Leukocyte Esterase-Dipstick 500 /ul (Negative); Nitrite-Dipstick Positive (Negative); Occult Blood-Urine 250 /ul (Negative); Protein-Dipstick 100 mg/dl (Negative); Specific Gravity, Urine 1.015 (1.002-1.030); Urine Bilirubin Dipstick Negative (Negative); Urine Clarity Turbid (Clear); Urine Urobilinogen Normal (Normal)
[2020-01-06 17:34] LABS: White Blood Cells >100 SEEN /hpf (0-5)
[2020-01-06 17:40] VITALS: BP 143/80; PULSE 91; RESP 23
--- NOTE | 2020-01-06 18:03 | ED.VISSUMM ---
- ER Visit Summary Date of Service: 01/06/20 Chief Complaint: Nausea History of Present Illness: The patient is a [address] Hoff and Dr. Pro chavez. Reports that 3 days ago he had a ureteral stent for kidney stones. He reports that he also had a ureteral stent week before that. States that after the first surgery he was nauseated. He became nauseated again today. He has not vomited. He reports that he has an aching lower abdominal pain 6 of 10 at worst and 4-10 currently. Is worsened by nothing relieved by juice. He reports that his ileostomy is draining normally. He does complain of frequent urination and hematuria. Patient denies any fever or chills. Reports that he has back pain at times. When asked if he is currently experiencing back pain he reported possibly some. Physical Examination: Vitals: Stable. Afebrile. General: Well-nourished and well-developed. Head: Normocephalic atraumatic. Neck: Supple, no lymphadenopathy. No JVD. Nontender. Cardiovascular: Regular rate and rhythm. 2 out of 6 systolic murmur. Respiratory: No respiratory distress. Clear to auscultation bilaterally. Abdominal: Soft, nontender, nondistended, normal bowel sounds. No guarding, rebound, or peritoneal signs. Ileostomy is draining brown liquid stool without blood. Back: Nontender. No CVA tenderness. Extremities: Nontender, 2+ pitting edema lower extremities bilaterally. Skin: Normal color, no rash. Neurologic: Alert and oriented ?3. Cranial nerves II through XII are intact. Normal strength and sensation. Psych: Normal affect. Test Results: CBC shows a white count of 31.4 with a hemoglobin of 11.8, 7 neutrophils and a 1, lymphocytes of 3, immature Gran sites 1.1%. Chem-7 shows a sodium 134, chloride 108, CO2 of 20, BUN 34, creatinine 1.71. LFTs show an alk phos of 185, ALT of 13, AST of 14, albumin of 2.5, globulin 5.6. UA is nitrite positive with blood and greater than 100 white blood cells. This was sent for culture. Lactic acid is 2.5. Emergency Department Course and Treatment: Patient does not have prior urine cultures for sensitivity. He is currently on Keflex at home. He was given cefepime IV because of his recent instrumentation. He is resting comfortably. Treatment Plan: Patient was discussed with Dr. Pro chavez and Dr. Gardner. He will be admitted to the hospital for further evaluation and treatment. Disposition: Admitted in serious condition. Impression: 1. Sepsis. 2. Urinary tract infection. 3. Recent ureteral stent. This note was generated with [employer] dictation software. It may contain incorrect words, spelling, and punctuation that were not noted in review of the chart prior to signing ED Disposition - Plan for ED Patient: Referrals: Reyna Hoff MD [Primary Care Provider] -
[2020-01-06 19:13] VITALS: PULSE 90; RESP 20
[2020-01-06 19:27] VITALS: BP 139/84; PULSE 90; RESP 18; TEMP 36.9; O2SAT 93
[2020-01-06 20:04] LABS: Lactic Acid 2.5 mmol/L (0.4-1.9)
--- NOTE | 2020-01-06 20:27 | HP.PCM_ITS ---
Problem List (1) UTI (urinary tract infection) Status: Acute (2) Acute kidney injury Status: Acute (3) Renal calculi Status: Chronic (4) Bladder stones Status: Chronic (5) Ulcerative colitis Status: Chronic (6) Hypertension Status: Chronic History of Present Illness Date of Admission: 01/06/20 Chief Complaint: abdominal pain The patient is a 84 year old male patient with a past medical history of kidney stones who has had two separate ureteral stents placed over the past 2 weeks (currently one is in) who presents to the ER with abdominal pain.His last procedure was done 3 days ago. He also has an ileostomy that appears to be draining normally. Since arrival to the ER his pain has been alleviated however, his wbc count is 31,000 with a left shift and lactate level is 2.5. The patient has been on prophylaxis with Keflex but despite this he has leukocytes and nitrites in his urine. He will be admitted for hydration and management of UTI with sepsis. Past Medical History Past Medical History (Chronic Problems): Chronic Problems Renal calculi (Chronic) Bladder stones (Chronic) Ulcerative colitis (Chronic) Hypertension (Chronic) Allergies No Known Allergies Allergy (Verified 01/06/20 15:26) Home Medications: Ambulatory Orders Medication Instructions Recorded Verapamil HCl [Verapamil ER] 180 mg PO DAILY 05/30/14 Aspirin [Adult Aspirin Regimen] 81 mg PO DAILY 10/16/18 Cephalexin [Keflex] 250 mg PO Q12 #10 cap 12/29/19 Allopurinol [Zyloprim] 100 mg PO DAILYCM #90 tab 01/03/20 Ciprofloxacin [Cipro] 500 mg PO BID #20 tab 01/03/20 Hydrocodone/Acetaminophen [[place] 1 ea PO Q6H PRN PRN #20 tab 01/03/20 5-325 Tablet] Potassium Citrate [Urocit-K] 10 meq PO TID #90 tablet.er 01/03/20 Surgical History: appendectomy, colectomy - Colectomy w/ ileostomy., total hip arthroplasty - Right, tonsillectomy, - - Hernia repair Psychiatric History: No pertinent psych hx Smoking Status: Never smoker - *Family History Maternal History Items: - Paternal History Items: - Review of Systems Constitutional: Reports: Fever, Weakness. Denies: Chills, Weight Change HEENT: Denies: Head Aches, Sinus Congestion, Sinus Drainage Cardiovascular: Denies: Chest Pain, Palpitations Respiratory: Denies: Cough, Shortness of breath at rest, Sputum production Gastrointestinal: Reports: Abdominal Pain, Nausea. Denies: Vomiting Genitourinary: Denies: Dysuria Musculoskeletal: Denies: Joint Pain, Joint Tenderness Skin: Denies: Rash, Wounds Neurological: Denies: Numbness, Tingling, Focal weakness Psychiatric: Denies: Anxiety, Depression, Homicidal Ideations, Suicidal Ideations Hematologic/ Lymphatic: Denies: Easy Bruising, Easy Bleeding VTE Information - Inpt Only VTE Present on Admission: No VTE Mechan Device Prophylaxis: None VTE Pharm Prophylaxis ordered?: Yes Patient Problems: Active and Suspected Problems Acute kidney injury (Acute) UTI (urinary tract infection) (Acute) - Physical Exam Vitals/I&O's: Vital Signs Temp Pulse Resp BP Pulse Ox 98.5 F 90 18 139/84 H 93 01/06/20 19:27 01/06/20 19:27 01/06/20 19:27 01/06/20 19:27 01/06/20 19:27 Oxygen Delivery Method Room Air Weight: 168 lb Body Mass Index (BMI) 24.0 Intake and Output for Last 24 Hours 01/04/20 01/05/20 01/06/20 23:59 23:59 23:59 Intake Total 550 / 550 Balance 550 / 550 General: Alert, Oriented x3, Cooperative HEENT: Atraumatic, Normocephalic Neck: Supple, No JVD, Negative Carotid Bruits Lungs: Clear to auscultation, Normal air movement Cardiovascular: Regular rate, Normal S1, Normal S2, No murmurs Abdomen: Bowel Sounds Present, Soft, Tender - generalized Extremities: No edema Skin: No rashes Musculoskeletal: No Tenderness to Palpation of Joints or Extremities Neurological: Neuro grossly intact Psych/Mental Status: Normal Affect, Appropriate Laboratory Results 01/06/20 16:40: WBC 31.4 H*, RBC 3.88 L, Hgb 11.8 L, Hct 41.1, MCV 105.9 H, MCH 30.4, MCHC 28.7 L, RDW Std Deviation 56.7 H, RDW Coeff of Jeremiah 14.3, Plt Count 188, MPV 10.3, Immature Gran % (Auto) 1.100 H, Neut % (Auto) 90.5 H, Lymph % (Auto) 2.7 L, [place] % (Auto) 5.4, Eos % (Auto) 0.1, Baso % (Auto) 0.2, Absolute Neuts (auto) 28.4 H, Absolute Lymphs (auto) 0.84, Nucleated RBC % 0, Diff Path Review June foll 01/06/20 16:40: Sodium 134 L, Potassium 4.7, Chloride 108 H, Carbon Dioxide 20.0 L, Anion Gap 6, BUN 34 H, Creatinine 1.71 H, Estim Creat Clear Calc 33.20, Est GFR (MDRD) Af Amer 49 L, Est GFR (MDRD) Non-Af 41 L, BUN/Creatinine Ratio 19.9, Glucose 99, Calcium 8.8, Total Bilirubin 0.50, AST 14 L, ALT 13 L, Alkaline Phosphatase 185 H, Total Protein 8.1, Albumin 2.5 L, Globulin 5.6 H, Albumin/Globulin Ratio 0.4 L 01/06/20 16:45: Urine Color Yellow, Urine Clarity Turbid, Urine pH 6.0, Ur Specific [place] 1.015, Urine Protein 100 H, Urine Glucose (UA) Normal, Urine Ketones Negative, Urine Occult Blood 250 H, Urine Nitrite Positive H, Urine Bilirubin Negative, Urine Urobilinogen Normal, Ur Leukocyte Esterase 500 H, Urine RBC 0 SEEN, Urine WBC >100 SEEN, Ur Squamous Epith Cells 0 SEEN, Urine Bacteria 0 SEEN, Urine Mucus 0 SEEN 01/06/20 19:10: Lactic Acid 2.5 H* Assessment/Plan All Active Problems Acute kidney injury (Acute) UTI (urinary tract infection) (Acute) Chronic Problems Renal calculi (Chronic) Bladder stones (Chronic) Ulcerative colitis (Chronic) Hypertension (Chronic) Plan 1. UTI with sepsis- admit to general medical floor, continue cefepime initiated in ER, IV hydration per sepsis protocol, repeat lactate per routine and cbc,bmp in am, zofran prn nausea will add prn pain med if recurs 2. Hypertension- continue routine home medication 3. DVT prophylaxis- [facility] Inpatient E&M: 11902 Init Hosp L3
[2020-01-06 20:36] VITALS: BP 128/78; PULSE 90; RESP 16; TEMP 37.1; O2SAT 95
[2020-01-06 21:22] VITALS: BMI 23.6; BMI 23.7
[2020-01-06 21:26] VITALS: BP 132/69; PULSE 90; RESP 24; TEMP 36.8; O2SAT 94
[2020-01-06] MEDS: 0.9% Normal Saline 1,000 ML 125 ML IV (21:52)
--- NOTE | 2020-01-06 22:14 | NURSING ---
Pt is unaware of his home meds. Called his [facility] at [phone] and she will call the floor with his meds when she gets home.
[2020-01-06 23:18] LABS: Reflex Lactate? Y
[2020-01-07] VITALS (7 sets, daily range): BP systolic 123–134; BP diastolic 69–79; PULSE 63–86; RESP 16–20; TEMP 36.6–37.3; O2SAT 93–100
[2020-01-07 00:20] LABS: Lactic Acid 1.2 mmol/L (0.4-1.9)
[2020-01-07] MEDS: 0.9% Normal Saline 1,000 ML 125 ML IV ×3 (05:29→21:40)
[2020-01-07 05:44] LABS: Absolute Lymphocyte Count 0.76 X10^3/uL (0.83-4.51); Absolute Neutrophil Count 20.9 X10^3/uL (2.0-7.7); Basophil# 0.05 X10^3/uL; Basophil% 0.2 % (0-1); Eosinophil# 0.03 X10^3/uL; Eosinophils% 0.1 % (0-5); Hematocrit 34.4 % (40-54); Hemoglobin 10.8 g/dL (13.0-16.5); Lymphocyte # 0.76 X10^3/ul (4.0); Lymphocyte % 3.3 % (19-41); Mean Corp Hgb Conc 31.4 g/dL (32-36); Mean Corpuscular Hgb 31.2 pg (27.0-32.0); Mean Corpuscular Volume 99.4 fL (80-94); Mean Platelet Vol. 10.2 fl (6.2-12.0); Monocyte# 1.34 X10^3/uL; Monocyte% 5.7 % (0-10); NRBC Flagged by Analyzer 0 % (0-5); Neutrophil # 20.88 X10^3/uL (2.7-7.7); Neutrophil % 89.5 % (47-70); POSITIVE DIFFERENTIAL YES; Platelet Count 187 K/mm3 (150-450); RBC Distribution Width CV 14.1 % (11.6-14.6); RBC Distribution Width SD 51.4 fl (35.1-43.9); Red Blood Count 3.46 M/mm3 (4.6-6.2); White Blood Count 23.4 K/mm3 (4.4-11.0)
[2020-01-07 05:51] LABS: Differential Indicated SCAN CRITERIA MET
[2020-01-07 06:08] LABS: Anion Gap 5 (5-15); BUN 30 mg/dL (7-18); Calcium,Total 8.2 mg/dL (8.5-10.1); Chloride 109 mmol/L (98-107); EST Glomerular Filtration Rate 47 mL/min (>60); Est Glom Filt Rate - Afr Amer 57 mL/min (>60); Estimated Creatinine Clearance 37.85 ml/min; Glucose 111 mg/dL (74-106); Potassium 4.3 mmol/L (3.5-5.1); Sodium Level 138 mmol/L (136-145)
[2020-01-07] MEDS: Enoxaparin 40 MG/0.4 ML Syringe SC (09:48)
[2020-01-07] MEDS: Verapamil SR 180 MG CAPSULE PO (09:48)
[2020-01-07] MEDS: Aspirin E.C. 81 MG Tablet PO (09:48)
[2020-01-07 13:06] LABS: Pathologist Review Reviewed
--- NOTE | 2020-01-07 13:25 | CASEMGMT ---
RN PRAVEEN Face to Face with patient for initial transition planning/care coordination assessment. RN CM introduced self and role at [facility]. Patient lying in bed, alert and oriented. Patient willing to participate in assessment and is able to answer all questions appropriately. Care providers, pharmacy, and demographics verified. Patient wishes to discharge home, denies need for home health at this time. Patient states he has no further needs or concerns at this time. CM to follow for discharge planning needs that may arise. PCP: Luis Eduardo Specialists: Kodi Mack Pharmacy: [facility] Insurance: [facility] Prescription Benefit: yes Living Will/HPOA: none LNOK: Living Arrangements: Patient lives with in a 2 story home with bed and bath to enter the home. 4 steps to enter the home. Patient states he is independent Transportation: self/ DME/HHC: Patient states he has cane, walker, and nebulizer at home. Disposition Plan: Patient to discharge home with family support and follow-up plans in place. Alysha PATEL, RN, CM
--- NOTE | 2020-01-07 13:36 | PCM.PN.HOSP ---
Patient Problems: Active and Suspected Problems Acute kidney injury (Acute) UTI (urinary tract infection) (Acute) Subjective: Patient seen and examined. He was admitted with a complaint of abdominal pain. Patient has a history of kidney stones and had ureteral stents placed over the last couple of weeks with his last procedure being done about 3 days ago. Started having lower abdominal pain on admission, he was found to have evidence of UTI with elevated white cell count and lactic acidosis. He has been managed for sepsis due to UTI. He is on IV cefepime. Patient has no complaints this morning. Abdominal pain has resolved. He denies any nausea, vomiting, fever or chills, abdominal pain, diarrhea vomiting. Review of systems otherwise negative. Vitals/I&O's: Vital Signs Temp Pulse Resp BP Pulse Ox 97.8 F 73 18 134/79 H 96 01/07/20 09:30 01/07/20 09:30 01/07/20 09:30 01/07/20 09:30 01/07/20 09:30 Oxygen Delivery Method Room Air Weight: 164 lb 14.492 oz Body Mass Index (BMI) 23.6 Intake and Output for Last 24 Hours 01/05/20 01/06/20 01/07/20 23:59 23:59 23:59 Intake Total 550 / 550 1702.08 / 1702.08 Output Total 1000 / 1000 Balance 550 / 550 702.08 / 702.08 General: Alert, Oriented x3, Cooperative, No apparent distress HEENT: Atraumatic, PERRLA, EOMI, Normocephalic Oral: Dry Mucosa Neck: Supple, No JVD, Negative Carotid Bruits, Negative Hepatojugular Reflux, No Nodes Lungs: Clear to auscultation, Normal air movement, No rhonchi, No wheeze Cardiovascular: Regular rate, Regular Rhythm, Normal S1, Normal S2, No murmurs Abdomen: Bowel Sounds Present, Soft, Non Tender, Non-Distended, No Hepato-splenomegaly, - - has ileostomy bag Extremities: No clubbing, No cyanosis, No edema, Capillary Refill Less than 3 Seconds Skin: No rashes, No breakdown Musculoskeletal: No Tenderness to Palpation of Joints or Extremities Lymphatic: No Cervical, Supraclavicular, or Inguinal Adenopathy Neurological: Cranial nerves II-XII grossly intact, Neuro grossly intact, Motor Exam 5/5 strength throughout Psych/Mental Status: Normal Affect, Appropriate, Alert and oriented to time, place, person, mood and affect Microbiology Past 72 Hours 01/06/20 18:00 Urine, Random Urine Culture - Preliminary Gram negative [place] Laboratory Results 01/06/20 16:40: WBC 31.4 H*, RBC 3.88 L, Hgb 11.8 L, Hct 41.1, MCV 105.9 H, MCH 30.4, MCHC 28.7 L, RDW Std Deviation 56.7 H, RDW Coeff of Jeremiah 14.3, Plt Count 188, MPV 10.3, Immature Gran % (Auto) 1.100 H, Neut % (Auto) 90.5 H, Lymph % (Auto) 2.7 L, [place] % (Auto) 5.4, Eos % (Auto) 0.1, Baso % (Auto) 0.2, Absolute Neuts (auto) 28.4 H, Absolute Lymphs (auto) 0.84, Nucleated RBC % 0, Diff Path Review Reviewed 01/06/20 16:40: Sodium 134 L, Potassium 4.7, Chloride 108 H, Carbon Dioxide 20.0 L, Anion Gap 6, BUN 34 H, Creatinine 1.71 H, Estim Creat Clear Calc 33.20, Est GFR (MDRD) Af Amer 49 L, Est GFR (MDRD) Non-Af 41 L, BUN/Creatinine Ratio 19.9, Glucose 99, Calcium 8.8, Total Bilirubin 0.50, AST 14 L, ALT 13 L, Alkaline Phosphatase 185 H, Total Protein 8.1, Albumin 2.5 L, Globulin 5.6 H, Albumin/Globulin Ratio 0.4 L 01/06/20 16:45: Urine Color Yellow, Urine Clarity Turbid, Urine pH 6.0, Ur Specific [place] 1.015, Urine Protein 100 H, Urine Glucose (UA) Normal, Urine Ketones Negative, Urine Occult Blood 250 H, Urine Nitrite Positive H, Urine Bilirubin Negative, Urine Urobilinogen Normal, Ur Leukocyte Esterase 500 H, Urine RBC 0 SEEN, Urine WBC >100 SEEN, Ur Squamous Epith Cells 0 SEEN, Urine Bacteria 0 SEEN, Urine Mucus 0 SEEN 01/06/20 19:10: Lactic Acid 2.5 H* 01/06/20 23:50: Lactic Acid 1.2 01/07/20 05:30: WBC 23.4 H, RBC 3.46 L, Hgb 10.8 L, Hct 34.4 L, MCV 99.4 H D, MCH 31.2, MCHC 31.4 L D, RDW Std Deviation 51.4 H, RDW Coeff of Jeremiah 14.1, Plt Count 187, MPV 10.2, Immature Gran % (Auto) 1.200 H, Neut % (Auto) 89.5 H, Lymph % (Auto) 3.3 L, [place] % (Auto) 5.7, Eos % (Auto) 0.1, Baso % (Auto) 0.2, Absolute Neuts (auto) 20.9 H, Absolute Lymphs (auto) 0.76 L, Nucleated RBC % 0 01/07/20 05:30: Sodium 138, Potassium 4.3, Chloride 109 H, Carbon Dioxide 24.0, Anion Gap 5, BUN 30 H, Creatinine 1.50 H, Estim Creat Clear Calc 37.85, Est GFR (MDRD) Af Amer 57 L, Est GFR (MDRD) Non-Af 47 L, BUN/Creatinine Ratio 20.0, Glucose 111 H, Calcium 8.2 L Current Medications Aspirin (Aspirin E.C. 81 Mg Tablet) [facility] Last Admin: 01/07/20 09:48 Dose: 81 mg Documented by: Calamine/Phenol (Menthol/Lanolin/Calamine/Znox 113 Gm Tube) 1 applic TOPICAL TID [facility]; Protocol Enoxaparin Sodium (Enoxaparin 40 Mg/0.4 Ml Syringe) 40 mg SC DAILY [facility] Last Admin: 01/07/20 09:48 Dose: 40 mg Documented by: Cefepime HCl 1 gm/ Sodium (Chloride) 50 mls @ 100 mls/hr IV Q24@2200 [facility] Sodium Chloride () 1,000 mls @ 125 mls/hr IV .Q8H [facility] Last Admin: 01/07/20 05:29 Dose: 125 mls/hr Documented by: Nutritional Formula (Nutritional Supplement (Eds) Packet) 1 packet PO BIDCM [facility] Ondansetron HCl (Ondansetron 4 Mg/2 Ml Vial) 4 mg IV Q8H PRN PRN PRN Reason: NAUSEA/VOMITING Sodium Chloride (0.9% Saline Lock 10 Ml Syringe) 10 - 40 ml IV UD PRN PRN Reason: SALINE FLUSH Verapamil HCl (Verapamil Sr 180 Mg Capsule) 180 mg PO DAILY [facility] Last Admin: 01/07/20 09:48 Dose: 180 mg Documented by: Medical Necessity - Tobacco Use Smoking Status: Never smoker Assessment/Plan All Active Problems Acute kidney injury (Acute) UTI (urinary tract infection) (Acute) #Sepsis due to UTI wbc is down to 23.4, from 31.4 on admission on IV cefepime urine culture growing gram negative rods blood cultures pending continue hydrating with IVF # Hypertension: on verapamil #ulcerative colitis: s/p colectomy, with colostomy bag in place DVT prophylaxis; [facility] Inpatient E&M: [id number] [facility] Hosp L3
[2020-01-07] MEDS: Menthol/Lanolin/Calamine/Znox 113 GM Tube 1 APPLIC TOPICAL ×2 (14:02→20:45)
[2020-01-08] VITALS (10 sets, daily range): BP systolic 127–136; BP diastolic 63–72; PULSE 68–81; RESP 18–20; TEMP 36.6–37.4; O2SAT 93–95
[2020-01-08] MEDS: Menthol/Lanolin/Calamine/Znox 113 GM Tube 1 APPLIC TOPICAL ×3 (06:06→22:02)
[2020-01-08] MEDS: 0.9% Normal Saline 1,000 ML 125 ML IV (06:06)
[2020-01-08 07:13] LABS: Absolute Lymphocyte Count 0.79 X10^3/uL (0.83-4.51); Absolute Neutrophil Count 12.7 X10^3/uL (2.0-7.7); Basophil# 0.04 X10^3/uL; Basophil% 0.3 % (0-1); Eosinophil# 0.34 X10^3/uL; Eosinophils% 2.3 % (0-5); Hemoglobin 10.6 g/dL (13.0-16.5); Lymphocyte # 0.79 X10^3/ul (4.0); Lymphocyte % 5.2 % (19-41); Mean Corp Hgb Conc 31.2 g/dL (32-36); Mean Corpuscular Volume 99.4 fL (80-94); Monocyte# 0.96 X10^3/uL; Monocyte% 6.4 % (0-10); NRBC Flagged by Analyzer 0 % (0-5); Neutrophil # 12.73 X10^3/uL (2.7-7.7); Neutrophil % 84.4 % (47-70); Platelet Count 197 K/mm3 (150-450); RBC Distribution Width SD 51.7 fl (35.1-43.9); Red Blood Count 3.42 M/mm3 (4.6-6.2); White Blood Count 15.1 K/mm3 (4.4-11.0)
[2020-01-08 07:42] LABS: Anion Gap 5 (5-15); BUN 26 mg/dL (7-18); BUN/Creat Ratio 17.8 RATIO (10-20); Chloride 110 mmol/L (98-107); Creatinine, Serum 1.46 mg/dL (0.70-1.30); EST Glomerular Filtration Rate 49 mL/min (>60); Est Glom Filt Rate - Afr Amer 59 mL/min (>60); Estimated Creatinine Clearance 38.89 ml/min; Glucose 103 mg/dL (74-106); Sodium Level 137 mmol/L (136-145)
[2020-01-08] MEDS: Aspirin E.C. 81 MG Tablet PO (09:45)
[2020-01-08] MEDS: Verapamil SR 180 MG CAPSULE PO (09:45)
[2020-01-08] MEDS: Enoxaparin 40 MG/0.4 ML Syringe SC (09:45)
--- NOTE | 2020-01-08 12:52 | PN_ITS ---
Patient Problems: Active and Suspected Problems Acute kidney injury (Acute) UTI (urinary tract infection) (Acute) Subjective: Patient seen and examined. He has no complaints this morning. Abdominal pain is resolved. He denies any fever, chills, nausea vomiting or diarrhea. Review of systems otherwise negative. Has remained hemodynamically stable. WBC has trended down to 15. Vitals/I&O's: Vital Signs Temp Pulse Resp BP Pulse Ox 98.1 F 70 18 136/71 H 95 01/08/20 09:10 01/08/20 09:10 01/08/20 09:10 01/08/20 09:10 01/08/20 09:45 Oxygen Delivery Method Room Air Weight: 164 lb 14.492 oz Body Mass Index (BMI) 23.6 Intake and Output for Last 24 Hours 01/06/20 01/07/20 01/08/20 23:59 23:59 23:59 Intake Total 550 / 550 4256.25 / 4256.25 1481.25 / 1481.25 Output Total 2000 / 1999 1200 / 1200 Balance 550 / 550 2256.25 / 2256.25 281.25 / 281.25 General: Alert, Oriented x3, Cooperative, No apparent distress HEENT: Atraumatic, PERRLA, EOMI, Normocephalic Oral: Dry Mucosa Neck: Supple, No JVD, Negative Carotid Bruits, Negative Hepatojugular Reflux, No Nodes Lungs: Clear to auscultation, Normal air movement, No rhonchi, No wheeze Cardiovascular: Regular rate, Regular Rhythm, Normal S1, Normal S2, No murmurs Abdomen: Bowel Sounds Present, Soft, Non Tender, Non-Distended, No Hepato- splenomegaly, - - has ileostomy bag Extremities: No clubbing, No cyanosis, No edema, Capillary Refill Less than 3 Seconds Skin: No rashes, No breakdown Musculoskeletal: No Tenderness to Palpation of Joints or Extremities Lymphatic: No Cervical, Supraclavicular, or Inguinal Adenopathy Neurological: Cranial nerves II-XII grossly intact, Neuro grossly intact, Motor Exam 5/5 strength throughout Psych/Mental Status: Normal Affect, Appropriate, Alert and oriented to time, place, person, mood and affect Microbiology Past 72 Hours 01/06/20 18:00 Urine, Random Urine Culture - Final Pseudomonas aeroginosa Laboratory Results 01/06/20 16:40: Diff Path Review Reviewed 01/08/20 06:43: WBC 15.1 H, RBC 3.42 L, Hgb 10.6 L, Hct 34.0 L, MCV 99.4 H, MCH 31.0, MCHC 31.2 L, RDW Std Deviation 51.7 H, RDW Coeff of Jeremiah 14.0, Plt Count 197, MPV 10.0, Immature Gran % (Auto) 1.400 H, Neut % (Auto) 84.4 H, Lymph % (Auto) 5.2 L, Thomas % (Auto) 6.4, Eos % (Auto) 2.3, Baso % (Auto) 0.3, Absolute Neuts (auto) 12.7 H, Absolute Lymphs (auto) 0.79 L, Nucleated RBC % 0 01/08/20 06:43: Sodium 137, Potassium 4.0, Chloride 110 H, Carbon Dioxide 22.0, Anion Gap 5, BUN 26 H, Creatinine 1.46 H, Estim Creat Clear Calc 38.89, Est GFR (MDRD) Af Amer 59 L, Est GFR (MDRD) Non-Af 49 L, BUN/Creatinine Ratio 17.8, Glucose 103, Calcium 8.0 L Current Medications Aspirin (Aspirin E.C. 81 Mg Tablet) [facility] Last Admin: 01/08/20 09:45 Dose: 81 mg Documented by: Calamine/Phenol (Menthol/Lanolin/Calamine/Znox 113 Gm Tube) 1 applic TOPICAL TID [facility]; Protocol Last Admin: 01/08/20 06:06 Dose: 1 applicatio Documented by: Enoxaparin Sodium (Enoxaparin 40 Mg/0.4 Ml Syringe) 40 mg SC DAILY [facility] Last Admin: 01/08/20 09:45 Dose: 40 mg Documented by: Cefepime HCl 1 gm/ Sodium (Chloride) 50 mls @ 100 mls/hr IV Q24@2200 [facility] Last Infusion: 01/07/20 22:15 Dose: Infused Documented by: Sodium Chloride () 1,000 mls @ 125 mls/hr IV .Q8H [facility] Last Admin: 01/08/20 06:06 Dose: 125 mls/hr Documented by: Nutritional Formula (Nutritional Supplement (Des) Packet) 1 [facility] Last Admin: 01/08/20 09:45 Dose: 1 packet Documented by: Ondansetron HCl (Ondansetron 4 Mg/2 Ml Vial) 4 mg IV Q8H PRN PRN PRN Reason: NAUSEA/VOMITING Sodium Chloride (0.9% Saline Lock 10 Ml Syringe) 10 - 40 ml IV UD PRN PRN Reason: SALINE FLUSH Verapamil HCl (Verapamil Sr 180 Mg Capsule) 180 mg PO DAILY [facility] Last Admin: 01/08/20 09:45 Dose: 180 mg Documented by: STROKE Vital Signs/Narrative: Vital Signs Temp Pulse Resp BP Pulse Ox 01/08/20 09:45 95 01/08/20 09:36 95 01/08/20 09:10 98.1 F 70 18 136/71 H 95 01/08/20 09:00 80 Medical Necessity - Tobacco Use Smoking Status: Never smoker Assessment/Plan All Active Problems Acute kidney injury (Acute) UTI (urinary tract infection) (Acute) #Sepsis due to UTI * wbc is down to trending further downwards to 15 today * on IV cefepime * urine culture grew Pseudomonas * blood cultures pending * # Hypertension: on verapamil #ulcerative colitis: s/p colectomy, with colostomy bag in place [facility] E&M: [id number] [facility] Hosp L2
[2020-01-09 02:50] VITALS: BP 150/77; PULSE 78; RESP 18; TEMP 37.1; O2SAT 94
[2020-01-09] MEDS: Menthol/Lanolin/Calamine/Znox 113 GM Tube 1 APPLIC TOPICAL (06:45)
[2020-01-09 07:40] VITALS: O2SAT 96
[2020-01-09 07:41] LABS: Absolute Lymphocyte Count 0.76 X10^3/uL (0.83-4.51); Absolute Neutrophil Count 7.4 X10^3/uL (2.0-7.7); Basophil# 0.02 X10^3/uL; Basophil% 0.2 % (0-1); Eosinophil# 0.56 X10^3/uL; Eosinophils% 5.6 % (0-5); Hematocrit 34.1 % (40-54); Hemoglobin 10.5 g/dL (13.0-16.5); Lymphocyte # 0.76 X10^3/ul (4.0); Lymphocyte % 7.7 % (19-41); Mean Corp Hgb Conc 30.8 g/dL (32-36); Mean Corpuscular Hgb 30.4 pg (27.0-32.0); Mean Corpuscular Volume 98.8 fL (80-94); Mean Platelet Vol. 10.1 fl (6.2-12.0); Monocyte# 1.06 X10^3/uL; Monocyte% 10.7 % (0-10); NRBC Flagged by Analyzer 0 % (0-5); Neutrophil # 7.37 X10^3/uL (2.7-7.7); Neutrophil % 74.3 % (47-70); Platelet Count 211 K/mm3 (150-450); RBC Distribution Width CV 13.8 % (11.6-14.6); RBC Distribution Width SD 50.8 fl (35.1-43.9); Red Blood Count 3.45 M/mm3 (4.6-6.2); White Blood Count 9.9 K/mm3 (4.4-11.0)
[2020-01-09 08:07] LABS: Anion Gap 5 (5-15); BUN 32 mg/dL (7-18); BUN/Creat Ratio 18.7 RATIO (10-20); Calcium,Total 8.2 mg/dL (8.5-10.1); Chloride 111 mmol/L (98-107); Creatinine, Serum 1.71 mg/dL (0.70-1.30); EST Glomerular Filtration Rate 41 mL/min (>60); Est Glom Filt Rate - Afr Amer 49 mL/min (>60); Glucose 99 mg/dL (74-106); Sodium Level 139 mmol/L (136-145)
[2020-01-09 08:31] VITALS: BP 150/71; PULSE 75; RESP 16; TEMP 36.5; O2SAT 95
[2020-01-09] MEDS: Aspirin E.C. 81 MG Tablet PO (08:39)
[2020-01-09] MEDS: Enoxaparin 40 MG/0.4 ML Syringe SC (08:39)
[2020-01-09] MEDS: Verapamil SR 180 MG CAPSULE PO (08:40)
--- NOTE | 2020-01-09 12:16 | PCM.DC ---
- Discharge Diagnoses Current Active Problems: Current Active and Chronic Problems Acute kidney injury (Acute) Renal calculi (Chronic) Bladder stones (Chronic) UTI (urinary tract infection) (Acute) Ulcerative colitis (Chronic) Hypertension (Chronic) You will use the following diet at home:: Cardiac Your food should be the consistency of: Regular Your liquids should be the consistency of: Regular/Thin Discharge Activity: Return to Normal Activity Weight Bearing Status: Weight bearing as tolerated Call your doctor if you observe: Fever of 101 or Higher, Shortness of breath, Dizziness Allergies/Adverse Reactions: Allergies allopurinol Adverse Reaction (Verified 01/06/20 23:16) Chest tightness ciprofloxacin [From Cipro] Adverse Reaction (Verified 01/06/20 23:16) didn't know spouse Medications to take at Discharge Verapamil HCl [Verapamil ER] 180 mg PO DAILY 05/30/14 Aspirin [Adult Aspirin Regimen] 81 mg PO DAILY 10/16/18 Allopurinol [Zyloprim] 100 mg PO DAILYCM #90 tab 01/03/20 Hydrocodone/Acetaminophen [[place] 5-325 Tablet] 1 ea PO Q6H PRN PRN #20 tab 01/03/20 Equate 8 Hour Arthritis 650 mg PO BID 01/06/20 Ciprofloxacin [Cipro] 500 mg PO BID #20 tab 01/09/20 The following prescriptions were given: Ciprofloxacin [Cipro] 500 mg PO BID #20 tab Transmission Status: Pending to [id number] Primary Care Physician: Reyna Hoff MD [Primary Care Provider] - Please follow up with your Primary Care Physician in: 1-2 weeks Test Results: Test results from this visit will be discussed in further detail at your follow-up appointment, if applicable. Proposed Discharge Date: 01/09/20
--- NOTE | 2020-01-09 12:20 | PCM.DC.SUM ---
Discharge Date and Diagnosis - Problem List Patient Problems: Active and Suspected Problems Acute kidney injury (Acute) UTI (urinary tract infection) (Acute) Date of Admission: 01/06/20 Date of Discharge: 01/09/20 - Primary Discharge Diagnosis Acute Problems: Active Problems Acute kidney injury (Acute) UTI (urinary tract infection) (Acute) - Secondary Discharge Diagnosis Chronic Problems: Chronic Problems Renal calculi (Chronic) Bladder stones (Chronic) Ulcerative colitis (Chronic) Hypertension (Chronic) Hospital Course and Treatment Operations: None, - - c Procedures: None Summary of Care Provided: The patient is a 84 year old M with a past medical history as outlined who had recently had 2 ureteral stents placed on account of kidney stones in 2 weeks prior to admission. He was admitted through the ED on 01/06/2020 with a complaint of low abdominal pain. He denied any fever or chills. In the ED, he was found to have white cell count of 31,000 and lactic acid was elevated at 2.5. UA showed evidence of UTI though he had been on prophylaxis with Keflex. He was admitted and managed for sepsis due to UTI. He was started on IV cefepime. Urine cultures were obtained. White cell count gradually trended down and was 9.9 on day of discharge. Urine culture grew Pseudomonas aeruginosa and blood cultures were negative. Patient remained stable and felt much better and was discharged home on 01/09/2020 on p.o. ciprofloxacin for 10 days. He is to follow-up with his primary care doctor and urology. Patient seen and examined prior to discharge. He had no complaints and felt much better. Review of symptoms otherwise negative. Labs and vitals reviewed. Her medication reviewed and reconciled. O/E: Vital Signs Temp Pulse Resp BP Pulse Ox 97.7 F L 75 16 150/71 H 95 01/09/20 08:31 01/09/20 08:31 01/09/20 08:31 01/09/20 08:31 01/09/20 08:31 [] General: Alert, Oriented x3, Cooperative, No apparent distress HEENT: Atraumatic, PERRLA, EOMI, Normocephalic Oral: Dry Mucosa Neck: Supple, No JVD, Negative Carotid Bruits, Negative Hepatojugular Reflux, No Nodes Lungs: Clear to auscultation, Normal air movement, No rhonchi, No wheeze Cardiovascular: Regular rate, Regular Rhythm, Normal S1, Normal S2, No murmurs Abdomen: Bowel Sounds Present, Soft, Non Tender, Non-Distended, No Hepato-splenomegaly, - - has ileostomy bag Extremities: No clubbing, No cyanosis, No edema, Capillary Refill Less than 3 Seconds Skin: No rashes, No breakdown Musculoskeletal: No Tenderness to Palpation of Joints or Extremities Lymphatic: No Cervical, Supraclavicular, or Inguinal Adenopathy Neurological: Cranial nerves II-XII grossly intact, Neuro grossly intact, Motor Exam 5/5 strength throughout Psych/Mental Status: Normal Affect, Appropriate, Alert and oriented to time, place, person, mood and affect Plan is for discharge home today. Patient Problems: Active and Suspected Problems Acute kidney injury (Acute) UTI (urinary tract infection) (Acute) - Physical Exam Vitals/I&O's: Vital Signs Temp Pulse Resp BP Pulse Ox 97.7 F L 75 16 150/71 H 95 01/09/20 08:31 01/09/20 08:31 01/09/20 08:31 01/09/20 08:31 01/09/20 08:31 Oxygen Delivery Method Room Air Weight: 164 lb 14.492 oz Body Mass Index (BMI) 23.6 Intake and Output for Last 24 Hours 01/07/20 01/08/20 01/09/20 23:59 23:59 23:59 Intake Total 4256.25 / 4256.25 2781.25 / 2781.25 300 / 300 Output Total 2000 / 1999 1800 / 1800 375 / 375 Balance 2256.25 / 2256.25 981.25 / 981.25 -75 / -75 Microbiology Past 72 Hours 01/06/20 19:10 Blood Culture (Wb) - Anticubital Left Blood Culture - Preliminary No growth in 48 hours. 01/06/20 19:10 Blood Culture (Wb) - Left Forearm Blood Culture - Preliminary No growth in 48 hours. 01/06/20 18:00 Urine, Random Urine Culture - Final Pseudomonas aeroginosa Laboratory Results 01/09/20 07:00: WBC 9.9, RBC 3.45 L, Hgb 10.5 L, Hct 34.1 L, MCV 98.8 H, MCH 30.4, MCHC 30.8 L, RDW Std Deviation 50.8 H, RDW Coeff of Jeremiah 13.8, Plt Count 211, MPV 10.1, Immature Gran % (Auto) 1.500 H, Neut % (Auto) 74.3 H, Lymph % (Auto) 7.7 L, [place] % (Auto) 10.7 H, Eos % (Auto) 5.6 H, Baso % (Auto) 0.2, Absolute Neuts (auto) 7.4, Absolute Lymphs (auto) 0.76 L, Nucleated RBC % 0 01/09/20 07:00: Sodium 139, Potassium 4.0, Chloride 111 H, Carbon Dioxide 23.0, Anion Gap 5, BUN 32 H, Creatinine 1.71 H, Estim Creat Clear Calc 33.20, Est GFR (MDRD) Af Amer 49 L, Est GFR (MDRD) Non-Af 41 L, BUN/Creatinine Ratio 18.7, Glucose 99, Calcium 8.2 L Current Medications Aspirin (Aspirin E.C. 81 Mg Tablet) [facility] Last Admin: 01/09/20 08:39 Dose: 81 mg Documented by: Calamine/Phenol (Menthol/Lanolin/Calamine/Znox 113 Gm Tube) 1 applic TOPICAL TID [facility]; Protocol Last Admin: 01/09/20 06:45 Dose: 1 applicatio Documented by: Enoxaparin Sodium (Enoxaparin 40 Mg/0.4 Ml Syringe) 40 mg SC DAILY [facility] Last Admin: 01/09/20 08:39 Dose: 40 mg Documented by: Cefepime HCl 1 gm/ Sodium (Chloride) 50 mls @ 100 mls/hr IV Q24@2200 [facility] Last Infusion: 01/08/20 23:05 Dose: Infused Documented by: Nutritional Formula (Nutritional Supplement (Des) Packet) [facility] Last Admin: 01/09/20 08:39 Dose: 1 packet Documented by: Ondansetron HCl (Ondansetron 4 Mg/2 Ml Vial) 4 mg IV Q8H PRN PRN PRN Reason: NAUSEA/VOMITING Sodium Chloride (0.9% Saline Lock 10 Ml Syringe) 10 - 40 ml IV UD PRN PRN Reason: SALINE FLUSH Verapamil HCl (Verapamil Sr 180 Mg Capsule) 180 mg PO DAILY [facility] Last Admin: 01/09/20 08:40 Dose: 180 mg Documented by: Discharge Diet: Low fat/ Low Cholesterol Discharge Activity: Return to Normal Activity Weight Bearing Status: Weight bearing as tolerated Call your doctor if you observe: Fever of 101 or Higher, Shortness of breath, Dizziness Home Medications: Medications to take at Discharge Verapamil HCl [Verapamil ER] 180 mg PO DAILY 05/30/14 Aspirin [Adult Aspirin Regimen] 81 mg PO DAILY 10/16/18 Allopurinol [Zyloprim] 100 mg PO DAILYCM #90 tab 01/03/20 Hydrocodone/Acetaminophen [[place] 5-325 Tablet] 1 ea PO Q6H PRN PRN #20 tab 01/03/20 Equate 8 Hour Arthritis 650 mg PO BID 01/06/20 Ciprofloxacin [Cipro] 500 mg PO BID #20 tab 01/09/20 Following Prescriptions Were Given to Patient: Ciprofloxacin [Cipro] 500 mg PO BID #20 tab Transmission Status: Received by [facility] Primary Care Physician: Reyna Hoff MD [Primary Care Provider] - Please follow up with your Primary Care Physician in: 1-2 weeks Please Follow Up With: Giacomo Mariee MD When: 2-3 weeks Patient Instructions: When to Use Antibiotics, ED Bladder Infection, Male (Adult) Disposition: Home Minutes spent on discharge:: 45 Patient Condition:: Stable Medical Necessity - Tobacco Use Smoking Status: Never smoker Meaningful Use Info Meaningful Use Diagnoses (Choose all that apply): None applicable Inpatient E&M: 47668 Disch Hosp
== END 2020-01-09 13:10 | disposition home or self-care (01) | DRG 854 ==
LOC: ED 16:32 → MS3 22:37
PROVIDERS: Admitting Provider Family Medicine; Emergency Provider Emergency Medicine; PCP Family Medicine; Referring Provider Family Medicine; Visit Provider Student in an Organized Health Care Education/Training Program
DX: A41.9 Sepsis, unspecified organism (principal); N17.9 Acute kidney failure, unspecified; N39.0 Urinary tract infection, site not specified; K51.90 Ulcerative colitis, unspecified, without complications; N20.2 Calculus of kidney with calculus of ureter; N21.0 Calculus in bladder; R31.9 Hematuria, unspecified; B96.5 Pseudomonas (aeruginosa) (mallei) (pseudomallei) as the cause of diseases classified elsewhere; I10 Essential (primary) hypertension; N13.5 Crossing vessel and stricture of ureter without hydronephrosis; I49.3 Ventricular premature depolarization; Z93.2 Ileostomy status; Z93.3 Colostomy status; Z90.49 Acquired absence of other specified parts of digestive tract; Z87.442 Personal history of urinary calculi; Z79.82 Long term (current) use of aspirin; Z79.899 Other long term (current) drug therapy
CPT/HCPCS: 36415; 76000; 80048; 80053; 81001; 83605; 85025; 87040; 87077; 87086; 87088; 87186; 94762; 97116; 97162; 97166; 97530; 97802; 99285; J7030; J7050; J7120; A4216; C1726; C1769; C2617; J2405

== ENCOUNTER → 2020-01-21 13:53 | Outpatient (CLI) | payer MEDICARE, SELFPAY ==
[2020-01-06 21:22] VITALS: BMI 23.6
[2020-01-21 15:25] LABS: Absolute Lymphocyte Count 0.81 X10^3/uL (0.83-4.51); Absolute Neutrophil Count 9.4 X10^3/uL (2.0-7.7); Basophil# 0.02 X10^3/uL; Basophil% 0.2 % (0-1); Eosinophil# 0.05 X10^3/uL; Eosinophils% 0.4 % (0-5); Hematocrit 31.4 % (40-54); Hemoglobin 9.7 g/dL (13.0-16.5); Lymphocyte # 0.81 X10^3/ul (4.0); Mean Corp Hgb Conc 30.9 g/dL (32-36); Mean Corpuscular Hgb 29.7 pg (27.0-32.0); Mean Platelet Vol. 9.7 fl (6.2-12.0); Monocyte# 1.23 X10^3/uL; Monocyte% 10.6 % (0-10); NRBC Flagged by Analyzer 0 % (0-5); Platelet Count 439 K/mm3 (150-450); RBC Distribution Width SD 46.2 fl (35.1-43.9); Red Blood Count 3.27 M/mm3 (4.6-6.2); White Blood Count 11.6 K/mm3 (4.4-11.0)
[2020-01-21 15:46] LABS: ALB/GLOB Ratio 0.4 RATIO (0.9-2.4); AST(SGOT) 17 U/L (15-37); Alanine Aminotransfer ALT/SGPT 17 U/L (16-61); Albumin, Serum 2.6 g/dL (3.2-5.0); Alkaline Phosphatase 172 U/L (45-117); Anion Gap 7 (5-15); BUN 22 mg/dL (7-18); BUN/Creat Ratio 12.1 RATIO (10-20); Calcium,Total 8.6 mg/dL (8.5-10.1); Chloride 103 mmol/L (98-107); Creatinine, Serum 1.82 mg/dL (0.70-1.30); EST Glomerular Filtration Rate 38 mL/min (>60); Est Glom Filt Rate - Afr Amer 46 mL/min (>60); Globulin 5.9 g/dL (2.2-4.2); Glucose 105 mg/dL (74-106); Potassium 4.7 mmol/L (3.5-5.1); Protein, Total 8.5 g/dL (6.4-8.2); Sodium Level 133 mmol/L (136-145)
== END ==
PROVIDERS: PCP Family Medicine; Referring Provider Family Medicine; Visit Provider Family Medicine
DX: A41.9 Sepsis, unspecified organism (principal)
CPT/HCPCS: 36415; 80053; 85025

== ENCOUNTER → 2020-04-27 09:05 | Outpatient (CLI) | payer MEDICARE, SELFPAY ==
[2020-01-06 21:22] VITALS: BMI 23.6
--- NOTE | 2020-04-27 09:39 | CT_ITS ---
STUDY: CT ABDOMEN AND PELVIS WITHOUT CONTRAST REASON FOR EXAM: Male, 84 years old. BENIGN PROSTATIC HYPERPLASIA W/LOWER URINARY TRACT SYMPTOMS RADIATION DOSAGE (If Supplied By Facility): CTDIvol = ( 11.41 ) mGy, DLP = ( 515.92 ) mGycm TECHNIQUE: Transaxial images were obtained from the dome of the diaphragm to the symphysis pubis without oral contrast, and without intravenous contrast. Sagittal and coronal images were reconstructed. Individualized dose optimization techniques were used for this CT. COMPARISON: Comparison is made with prior examination dated 12/26/2019. FINDINGS: Stable small calcified granulomas in the right lower lobe. Coronary artery calcification. Calcification of the mitral valve annulus. Normal liver. Normal gallbladder and extrahepatic biliary system. There are multiple benign calcified granulomata of the spleen. Normal pancreas. Normal bilateral adrenal glands. 5.7 mm nonobstructive calculus in the lower pole calyx of the right kidney. Punctate calcification in the lower pole calyx of the right kidney as well. Residual mild degree of right hydronephrosis and hydroureter although there has been improvement as compared to prior study. There is moderate cortical atrophy of the left kidney, consistent with chronic medical renal disease. Normal visualized stomach. Normal small intestine. A colostomy is once again seen in the right lower quadrant. Stable presacral soft tissue changes most likely postoperative in nature. The appendix is visualized and appears normal. There is diffuse atherosclerotic calcification of the abdominal aorta, without a demonstrated aneurysm. Ectasia of the common iliac arteries bilaterally. Normal inferior vena cava. Residual retroperitoneal lymphadenopathy although there has been mild improvement as compared to prior study. The previously seen bladder calculi are not seen at this time. There is a left-sided inguinal hernia containing adipose tissue. There are diffuse degenerative changes of the visualized lumbar spine. Status post right total hip replacement. CT/Abdomen/Pelvis without Cont IMPRESSION: Interval improvement in the right hydronephrosis as well as the retroperitoneal lymphadenopathy. The remainder of the examination is unchanged. Electronically Signed: Morgan Alejandra MD at 10:23 EDT , Service support ,
[2020-04-27 10:05] LABS: Anion Gap 6 (5-15); BUN 22 mg/dL (7-18); BUN/Creat Ratio 13.7 RATIO (10-20); Calcium,Total 9.7 mg/dL (8.5-10.1); Chloride 102 mmol/L (98-107); Creatinine, Serum 1.61 mg/dL (0.70-1.30); EST Glomerular Filtration Rate 44 mL/min (>60); Est Glom Filt Rate - Afr Amer 53 mL/min (>60); Glucose 75 mg/dL (74-106); PSA,Total- Diagnostic 0.26 ng/mL (0.0-4.0); Sodium Level 137 mmol/L (136-145)
== END ==
PROVIDERS: PCP Family Medicine; Referring Provider Urology; Visit Provider Urology
DX: N40.1 Benign prostatic hyperplasia with lower urinary tract symptoms (principal)
CPT/HCPCS: 36415; 74176; 80048; 84153; 87077; 87086; 87088; 87186

== ENCOUNTER → 2020-05-12 10:46 | Outpatient (CLI) | payer MEDICARE, SELFPAY ==
[2020-01-06 21:22] VITALS: BMI 23.6
[2020-05-12 12:22] LABS: Anion Gap 1 (5-15); BUN 24 mg/dL (7-18); BUN/Creat Ratio 15.6 RATIO (10-20); Calcium,Total 9.3 mg/dL (8.5-10.1); Chloride 108 mmol/L (98-107); Creatinine, Serum 1.54 mg/dL (0.70-1.30); EST Glomerular Filtration Rate 46 mL/min (>60); Est Glom Filt Rate - Afr Amer 56 mL/min (>60); Glucose 72 mg/dL (74-106); Sodium Level 137 mmol/L (136-145)
[2020-05-12 13:00] LABS: Microalbumin:Creatinine Ratio 119.5 mg/g CRE (<30 mg/g CRE)
== END ==
PROVIDERS: PCP Family Medicine; Visit Provider Family Medicine
DX: I10 Essential (primary) hypertension (principal)
CPT/HCPCS: 36415; 80048; 82043; 82570

== ENCOUNTER → 2020-07-21 12:35 | Outpatient (CLI) | payer MEDICARE, SELFPAY ==
[2020-01-06 21:22] VITALS: BMI 23.6
--- NOTE | 2020-07-21 12:46 | RAD_ITS ---
HISTORY: Urinary calculi unspecified. 2 views of the abdomen. Comparison study is CT scan of the abdomen and pelvis from April 27, 2020. Findings: Right total hip prosthesis. 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 Scoliosis. Right hemiabdomen colostomy. There is a calcification superimposed over the superior pole of the right kidney. If this is a nephroliths, it is new since the previous study. It measures 2.2 cm in craniocaudal dimensions. There was a calculus within the inferior pole the right kidney, but much smaller than this perceived over the right renal shadow. The left renal shadow is not discerned. On the CT scan left kidney is atrophic. No free air. No pneumatosis. No organomegaly. Lung bases are clear. Atherosclerosis within the thoracic aorta. RAD/Abdomen Single View IMPRESSION: 2.2 cm calcification superimposed over the superior pole of the right kidney. Is this is a renal calculus it is new since April 27, 2020 study where there was a smaller calculus within the inferior pole of the right kidney. at [id number] Reported and signed by: Jori Almazan MD Electronically Signed: Jori Almazan MD at 6:45 EDT Tel , Service support ,
== END ==
PROVIDERS: PCP Family Medicine; Referring Provider Urology; Visit Provider Urology
DX: N20.9 Urinary calculus, unspecified (principal)
CPT/HCPCS: 74018

== ENCOUNTER 2020-08-11 17:55 | Inpatient (IN) | payer MEDICARE, SELFPAY ==
[2020-01-06 21:22] VITALS: BMI 23.6
[2020-08-11 17:56] VITALS: BP 125/105; PULSE 79; RESP 15; TEMP 21.1; O2SAT 89; BMI 21.7
[2020-08-11 17:57] VITALS: BP 125/105; PULSE 79; RESP 15; TEMP 37.1; O2SAT 96
--- NOTE | 2020-08-11 17:57 | ED.RN ---
[id number] CELL PHONE [phone] HOME PHONE BJ-
--- NOTE | 2020-08-11 18:04 | ED.RN ---
PT REFUSED A WHEEL CHAIR FROM [employer] UPON ARRIVAL AND IN TRIAGE. PT PULSE OX 89 ON ROOM AIR, PT WAS WALKING STEADY WITH HIS CANE.
[2020-08-11 18:08] VITALS: O2SAT 96
[2020-08-11 18:39] LABS: Absolute Lymphocyte Count 0.78 X10^3/uL (0.83-4.51); Basophil# 0.01 X10^3/uL; Basophil% 0.1 % (0-1); Eosinophil# 0.08 X10^3/uL; Eosinophils% 0.7 % (0-5); Hematocrit 41.2 % (40-54); Hemoglobin 13.3 g/dL (13.0-16.5); Lymphocyte # 0.78 X10^3/ul (0.83-4.51); Lymphocyte % 6.5 % (19-41); Mean Corp Hgb Conc 32.3 g/dL (32-36); Mean Corpuscular Hgb 30.1 pg (27.0-32.0); Mean Corpuscular Volume 93.2 fL (80-94); Mean Platelet Vol. 10.1 fl (6.2-12.0); Monocyte# 1.12 X10^3/uL; Monocyte% 9.3 % (0-10); NRBC Flagged by Analyzer 0 % (0-5); Neutrophil # 10.02 X10^3/uL (2.7-7.7); Neutrophil % 83.2 % (47-70); Platelet Count 201 K/mm3 (150-450); RBC Distribution Width CV 14.3 % (11.6-14.6); RBC Distribution Width SD 49.1 fl (35.1-43.9); Red Blood Count 4.42 M/mm3 (4.6-6.2)
[2020-08-11 18:47] LABS: ALB/GLOB Ratio 0.7 RATIO (0.9-2.4); AST(SGOT) 17 U/L (15-37); Alanine Aminotransfer ALT/SGPT 12 U/L (16-61); Albumin, Serum 3.7 g/dL (3.2-5.0); Alkaline Phosphatase 95 U/L (45-117); Anion Gap 9 (5-15); BUN 39 mg/dL (7-18); BUN/Creat Ratio 10.7 RATIO (10-20); Calcium,Total 9.1 mg/dL (8.5-10.1); Chloride 104 mmol/L (98-107); Creatinine, Serum 3.66 mg/dL (0.70-1.30); EST Glomerular Filtration Rate 17 mL/min (>60); Est Glom Filt Rate - Afr Amer 20 mL/min (>60); Estimated Creatinine Clearance 14.71 ml/min; Globulin 5.5 g/dL (2.2-4.2); Glucose 99 mg/dL (74-106); Potassium 4.4 mmol/L (3.5-5.1); Protein, Total 9.2 g/dL (6.4-8.2); Sodium Level 133 mmol/L (136-145)
--- NOTE | 2020-08-11 19:10 | EDS_ITS ---
HPI History of Present Illness Chief Complaint: Complaint Narrative Narrative: Patient presents with decreased urinary output since he woke up this morning, he has made very little urine. He has no suprapubic pain. No fever chills cough or congestion. He has no flank pain. He denies any lightheadedness or dizziness. [facility] Medical History (Updated 08/11/20 @ 19:[address] Jarrell Leong MD) HTN (hypertension) Kidney stones Home Medications verapamil 180 mg PO DAILY 05/30/14 [History Last Taken 12/25/19] aspirin 81 mg PO DAILY 10/16/18 [History Last Taken 12/25/19] allopurinol 100 mg PO DAILYCM #90 tab 01/03/20 [Rx Last Taken Unknown] tolterodine 4 mg PO DAILY 08/11/20 [History Last Taken Unknown] Allergy/AdvReac Type Severity Reaction Status Date / Time allopurinol AdvReac Chest Verified 08/11/20 17:57 tightness ciprofloxacin [From Cipro] AdvReac didn't Verified 08/11/20 17:57 know spouse Social History Smoking Status: Never smoker ROS ROS ED ROS Narrative Past medical history: Reviewed, includes ulcerative colitis, hypertension, chronic renal insufficiency, history of bladder stones on Detrol, history of UTIs. Medications: Reviewed Social history: Noncontributory Review of systems: All systems negative except as indicated General: No fever Eyes: No visual changes ENT: No upper airway congestion, normal voice Neck: No neck pain Cardiovascular: No chest pain Respiratory: No shortness of breath or cough Gastrointestinal: No abdominal pain, nausea vomiting or diarrhea Genitourinary: Decreased urinary output Musculoskeletal: Denies myalgias no difficulty with ambulation Skin: No rash Neurological: No memory loss, confusion or any focal weakness Psych: No recent behavioral changes Hematologic: No easy bleeding or easy bruising EXAM Physical Exam Narrative Exam Narrative: Physical exam General: Well nourished, Well developed, No Acute Distress Head: Normocephalic, Atraumatic Eyes: Conjunctiva not pale ENT: Dry mucous membranes Neck: Supple, Nontender, No lymphadenopathy Cardiovascular: Regular rate, Regular rhythm Respiratory: No distress, CTA bilaterally Abdomen: Soft, Nontender, Nondistended. No suprapubic pain : Normal external genitalia Back: Nontender, Normal Inspection. Negative for: CVA tenderness Extremities: Nontender, No edema Skin: Normal color, No rash Neurological: Alert, Normal Strength, Normal Sensation Psychological: Normal affect Const Vital Signs: 08/11/20 17:56 08/11/20 17:57 08/11/20 18:08 Temperature 69.9 F L 98.7 F Temperature Source Temporal Temporal Pulse Rate 79 79 Respiratory Rate 15 15 Blood Pressure 125/105 H 125/105 H Blood Pressure Mean 111 111 Pulse Ox 89 96 96 Oxygen Delivery Method Room Air Room Air Room Air MDM MDM MDM Narrative Medical decision making narrative: Patient is found to have acute kidney injury. His BUN is elevated but not enough to be prerenal azotemia. Bladder scan showed a volume of 40 to 50 mL, I was in the room while the nurse was doing a bladder scan. Patient will be admitted for further evaluation. Lab Data Labs: Laboratory Results - last 24 hr 08/11/20 08/11/20 18:20 18:20 WBC 12.0 H RBC 4.42 L Hgb 13.3 Hct 41.2 MCV 93.2 MCH 30.1 MCHC 32.3 RDW Std Deviation 49.1 H RDW Coeff of Jeremiah 14.3 Plt Count 201 MPV 10.1 Immature Gran % (Auto) 0.200 Neut % (Auto) 83.2 H Lymph % (Auto) 6.5 L [place] % (Auto) 9.3 Eos % (Auto) 0.7 Baso % (Auto) 0.1 Absolute Neuts (auto) 10.0 H Absolute Lymphs (auto) 0.78 L Nucleated RBC % 0 Sodium 133 L Potassium 4.4 Chloride 104 Carbon Dioxide 20.0 L Anion Gap 9 BUN 39 H Creatinine 3.66 H Estim Creat Clear Calc 14.71 Est GFR (MDRD) Af Amer 20 L Est GFR (MDRD) Non-Af 17 L BUN/Creatinine Ratio 10.7 Glucose 99 Calcium 9.1 Total Bilirubin 0.80 AST 17 ALT 12 L Alkaline Phosphatase 95 Total Protein 9.2 H Albumin 3.7 Globulin 5.5 H Albumin/Globulin Ratio 0.7 L Discharge Plan Triage Chief Complaint: Complaint ED Provider: Jarrell Leong Dx/Rx/DC Orders Clinical Impression: HENOK (acute kidney injury) Prescriptions: No Action verapamil 180 MG tablet extended release 180 mg PO DAILY RF: 0 aspirin 81 MG tablet,delayed release (DR/EC) 81 mg PO DAILY RF: 0 allopurinol 100 MG tablet 100 mg PO DAILYCM Qty: 90 RF: 3 tolterodine 4 mg Capsule,Extended Release 24hr 4 mg PO DAILY RF: 0 Primary Care Provider: Reyna Hoff Referrals: Reyna Hoff MD [Primary Care Provider] - Disposition [facility]
--- NOTE | 2020-08-11 19:39 | HP.PCM.HOS_ITS ---
HPI - General General Date of Admission: 08/11/20 Date of Service: 08/11/20 Chief Complaint: no urine output HPI Narrative ANURADHA NOLAN, is a 85 M with a significant history of ulcerative colitis status post colectomy; kidney stones; and hypertension who presents because of no urine output on the same day of presentation. Reportedly, he has a kidney stone in his right kidney and has plans to do lithotripsy in September 2020. He follows up with [facility]. About 2 weeks ago he was prescribed tolterodine for overreactive bladder. He started taking the tolterodine at the tail end of the week prior to presentation. He is on allopurinol that reportedly he takes because of his kidney stones. At the emergency department bladder scan showed about 40 mL of urine in the bladder. His BUN and creatinine was elevated at the emergency department. Urinalysis was ordered at the emergency department. However patient could not produce urine. He was started on IV fluids at the emergency department. [facility] Medical History HTN (hypertension) Kidney stones Home Medications verapamil 180 mg PO DAILY 05/30/14 [History Last Taken 08/11/20] aspirin 81 mg PO DAILY 10/16/18 [History Last Taken 08/11/20] allopurinol 100 mg PO DAILYCM #90 tab 01/03/20 [Rx Last Taken 08/11/20] tolterodine 4 mg PO DAILY 08/11/20 [History Last Taken 08/11/20] Allergy/AdvReac Type Severity Reaction Status Date / Time allopurinol AdvReac Chest Verified 08/11/20 17:57 tightness ciprofloxacin [From Cipro] AdvReac didn't Verified 08/11/20 17:57 know spouse Family History (Updated 08/11/20 @ 20:[address] Taurus Dumont MD) Father Heart disease Surgical History H/O colectomy History of cataract surgery History of herniorrhaphy History of hip surgery Social History (Updated 08/11/20 @ 20:[address] Taurus Dumont MD) Smoking Status: Never smoker ROS ROS Narrative 12 point review of system is negative except as stated in HPI. Vital Signs Vital Signs Vital Signs: 08/11/20 17:56 08/11/20 17:57 08/11/20 18:08 Temperature 69.9 F L 98.7 F Temperature Source Temporal Temporal Pulse Rate 79 79 Respiratory Rate 15 15 Blood Pressure 125/105 H 125/105 H Blood Pressure Mean 111 111 Pulse Ox 89 96 96 Oxygen Delivery Method Room Air Room Air Room Air Weight Weight: 70.5 kg Body Mass Index (BMI) 21.7 Physical Exam Narrative Physical exam: General: Well-nourished, well-developed, no acute distress Head: Normocephalic, atraumatic, no tenderness Eyes: PERRLA, EOMI ENT, no trauma, moist mucous membranes, no rhinorrhea Neck: Full range of motion CVS: Regular rate and rhythm Respiratory no acute distress, clear to auscultation bilaterally, chest wall nontender, no wheezing Abdomen: Ostomy with stool present; soft, nontender, nondistended, normal bowel sounds, no masses : Deferred Back: Nontender, no CVA tenderness, no midline spinal tenderness, deformities, step-offs Extremities: Nontender full range of motion, no trauma Skin: Normal color, no trauma, abrasions Neuro: Alert, oriented, cranial nerves II through XII grossly intact. Results Lab / Micro Data Result Diagrams: 08/11/20 18:20 08/11/20 18:20 Labs: Laboratory Results - last 24 hr 08/11/20 08/11/20 18:20 18:20 WBC 12.0 H RBC 4.42 L Hgb 13.3 Hct 41.2 MCV 93.2 MCH 30.1 MCHC 32.3 RDW Std Deviation 49.1 H RDW Coeff of Jeremiah 14.3 Plt Count 201 MPV 10.1 Immature Gran % (Auto) 0.200 Neut % (Auto) 83.2 H Lymph % (Auto) 6.5 L [place] % (Auto) 9.3 Eos % (Auto) 0.7 Baso % (Auto) 0.1 Absolute Neuts (auto) 10.0 H Absolute Lymphs (auto) 0.78 L Nucleated RBC % 0 Sodium 133 L Potassium 4.4 Chloride 104 Carbon Dioxide 20.0 L Anion Gap 9 BUN 39 H Creatinine 3.66 H Estim Creat Clear Calc 14.71 Est GFR (MDRD) Af Amer 20 L Est GFR (MDRD) Non-Af 17 L BUN/Creatinine Ratio 10.7 Glucose 99 Calcium 9.1 Total Bilirubin 0.80 AST 17 ALT 12 L Alkaline Phosphatase 95 Total Protein 9.2 H Albumin 3.7 Globulin 5.5 H Albumin/Globulin Ratio 0.7 L Assessment & Plan Assessment/Plan (1) Acute kidney injury: (2) Stage 3a chronic kidney disease: (3) Hypertension: QUALIFIERS: Hypertension type: primary hypertension Qualified Code(s): I10 - Essential (primary) hypertension (4) Renal calculi: (5) Overactive bladder: (6) Colostomy care: PLAN: HENOK on CKD stage IIIa CKD likely secondary to hypertensive nephrosclerosis. Review of imaging department labs showed a creatinine of 3.66. Creatinine baseline around 1.7. Renal ultrasound.. Urine electrolytes ordered. Started on IV fluids at the emergency department and continued. Avoid nephrotoxic's. Allopurinol held. Trend BMP. Hypertension Blood pressure is within goal Verapamil continued. Trend blood pressure and adjust blood pressure medications. History of renal calculi Reportedly has lithotripsy scheduled in September 2020. Hold allopurinol secondary to HENOK. Ultrasound of kidney and bladder. Neutrophilic leukocytosis Review of [place] department labs showed neutrophilic leukocytosis. Likely secondary to dehydration/reactive. IV hydration as above Trend CBC. Colostomy care Ostomy nurse consult. DVT prophylaxis Subcutaneous heparin ordered Charges/Coding Visit Charges Inpatient E&M: 73313 Init Hosp L3
[2020-08-11 19:57] VITALS: BP 125/71; PULSE 71; RESP 16; TEMP 36.2; O2SAT 99
--- NOTE | 2020-08-11 20:09 | US_ITS ---
EXAM: US RETROPERITONEAL LIMITED, RENAL : 1935 CLINICAL INDICATION: HENOK TECHNIQUE: Limited grayscale and color Doppler sonographic evaluation of the retroperitoneum was performed. This report was created using [employer] technology. COMPARISON: None. FINDINGS: RIGHT KIDNEY: Moderate hydronephrosis of the right kidney. 11.3 cm No shadowing calculus. No perinephric collection is demonstrated. LEFT KIDNEY: 8.1 cm No hydronephrosis. No shadowing calculus. No perinephric collection is demonstrated. BLADDER: No filling defects identified in the bladder. US/Kidney and Bladder IMPRESSION: Moderate hydronephrosis of the right kidney. at 0039 Reported and signed by: Jayesh Serrato MD Electronically Signed: Jayesh Serrato MD at 0:39 EDT Tel , Service support ,
[2020-08-11 20:10] VITALS: BMI 22.6
[2020-08-11 20:32] VITALS: BP 117/58; PULSE 70; RESP 18; TEMP 36.9; O2SAT 97
[2020-08-11] MEDS: Heparin Injection (Vial) 5,000 UNIT/ML VIAL 5000 UNIT SC (20:49)
[2020-08-11] MEDS: 0.9% Saline Lock 10 ML Syringe IV (20:51)
[2020-08-11] MEDS: 0.9% Normal Saline 1,000 ML 100 ML IV (20:51)
[2020-08-12] VITALS (7 sets, daily range): BP systolic 127–146; BP diastolic 50–71; PULSE 63–82; RESP 16–18; TEMP 36.7–37.4; O2SAT 93–98
[2020-08-12 03:17] LABS: Urine Sodium 61 mmol/L (Not Establ.)
[2020-08-12 03:32] LABS: Osmolality, Urine 276 mOsm/KG
[2020-08-12 06:13] LABS: Absolute Lymphocyte Count 0.39 X10^3/uL (0.83-4.51); Basophil# 0.01 X10^3/uL; Basophil% 0.1 % (0-1); Differential Indicated SCAN CRITERIA MET; Hematocrit 36.8 % (40-54); Hemoglobin 11.9 g/dL (13.0-16.5); Lymphocyte # 0.39 X10^3/ul (0.83-4.51); Lymphocyte % 2.8 % (19-41); Mean Corp Hgb Conc 32.3 g/dL (32-36); Mean Corpuscular Hgb 30.4 pg (27.0-32.0); Mean Corpuscular Volume 94.1 fL (80-94); Mean Platelet Vol. 9.7 fl (6.2-12.0); Monocyte# 1.21 X10^3/uL; Monocyte% 8.8 % (0-10); NRBC Flagged by Analyzer 0 % (0-5); Neutrophil # 12.04 X10^3/uL (2.7-7.7); Neutrophil % 87.6 % (47-70); POSITIVE DIFFERENTIAL YES; Platelet Count 163 K/mm3 (150-450); RBC Distribution Width CV 14.4 % (11.6-14.6); RBC Distribution Width SD 49.2 fl (35.1-43.9); Red Blood Count 3.91 M/mm3 (4.6-6.2); White Blood Count 13.7 K/mm3 (4.4-11.0)
[2020-08-12 06:28] LABS: Anion Gap 9 (5-15); BUN 44 mg/dL (7-18); BUN/Creat Ratio 9.7 RATIO (10-20); Calcium,Total 8.1 mg/dL (8.5-10.1); Chloride 106 mmol/L (98-107); Creatinine, Serum 4.55 mg/dL (0.70-1.30); EST Glomerular Filtration Rate 13 mL/min (>60); Est Glom Filt Rate - Afr Amer 16 mL/min (>60); Estimated Creatinine Clearance 12.02 ml/min; Glucose 124 mg/dL (74-106); Potassium 4.9 mmol/L (3.5-5.1); Sodium Level 135 mmol/L (136-145)
[2020-08-12 06:54] LABS: Differential Comment SCANNED
[2020-08-12] MEDS: 0.9% Normal Saline 1,000 ML 100 ML IV ×2 (07:02→15:26)
[2020-08-12 07:13] LABS: Mucous, Urine 0 SEEN /hpf (<or=2+)
[2020-08-12 07:52] LABS: Glucose, Dipstick Normal (Normal); Ketone-Dipstick Negative (Negative); Leukocyte Esterase-Dipstick 500 /ul (Negative); Nitrite-Dipstick Negative (Negative); Occult Blood-Urine 250 /ul (Negative); Protein-Dipstick 100 mg/dl (Negative); Urine Bilirubin Dipstick Negative (Negative); Urine Urobilinogen Normal (Normal)
[2020-08-12 07:53] LABS: Color, Urine Yellow (Yellow); Urine Clarity Cloudy (Clear)
[2020-08-12 08:02] LABS: Bacteria 2+ /hpf (None Seen); Red Blood Cells-Urine 25-50 SEEN /hpf (0-5); Squamous Epithelial Cells - UA 0-5 SEEN /hpf (0-5); White Blood Cells 50-100 SEEN /hpf (0-5)
--- NOTE | 2020-08-12 09:40 | CASEMGMT ---
[facility] Assessment: Face to Face with pt for initial transition planning/care coordination assessment. RN PRAVEEN introduced self and role at [facility], pt voices understanding and consents to assessment. Pt is A/O x4 and answers all questions appropriately at this time. Pt lying in bed grimacing at times due to pain per his report. Care providers, pharmacy, and demographics verified/updated. Admitting Dx: HENOK PCP: Luis Eduardo Specialists:Kodi Mack Pharmacy: [facility] Insurance: [facility] Prescription Benefit: no LW/HPOA: Pt denies having LW/DPOA. LNOK: Bailey Cm, Living Arrangements: Pt lives in a two story house with his with 5 steps to enter. Pt states he lives on the main floor. Pt reports being I in ADL's and denies concerns at home. Transportation: Pt drives short distances, transports to medical appts, etc. Pt denies concerns with transportation. DME/HHC/SNF: Pt has a cane that he uses most times, FWW and shower chair. Pt gets his colostomy supplies from [employer]. Pt denies any history of HHC or SNF stays. Pt states no concerns with going home at time of dc. Pt denies need for HHC for strengthening at this time. Pt states no further concerns/needs. CM to follow. Advised pt to ask CM if any further question/concerns/needs arise, voices understanding. Pt Goal: Home Plan: Home
[2020-08-12] MEDS: Aspirin E.C. 81 MG Tablet PO (10:04)
[2020-08-12] MEDS: Verapamil SR 180 MG CAPSULE PO (10:04)
[2020-08-12] MEDS: Allopurinol 100 MG Tablet PO (10:04)
[2020-08-12] MEDS: Tolterodine Tartrate 4 MG CAP.SA PO (10:05)
[2020-08-12] MEDS: Heparin Injection (Vial) 5,000 UNIT/ML VIAL 5000 UNIT SC ×2 (10:05→21:20)
--- NOTE | 2020-08-12 11:39 | PN.HOSP_ITS ---
Subjective Subjective States that he feels better today. No issues overnight. Objective Data Objective Data Vital Signs: Vital Signs Temp Pulse Resp BP Pulse Ox 98.2 F 82 18 128/68 H 96 08/12/20 09:00 08/12/20 09:00 08/12/20 09:00 08/12/20 09:00 08/12/20 09:00 Oxygen Delivery Method Room Air Weight: 157 lb 13.616 oz Body Mass Index (BMI) 22.6 Intake & Output: Intake and Output for Last 24 Hours 08/11/20 08/12/20 08/13/20 03:59 03:59 03:59 Intake Total 800 / 800 1300 / 1300 Output Total 0 / 0 275 / 275 Balance 800 / 800 1025 / 1025 Lab / Micro Data Result Diagrams: 08/12/20 05:52 08/12/20 05:52 Labs: Laboratory Results - last 24 hr 08/11/20 08/11/20 08/12/20 18:20 18:20 02:40 WBC 12.0 H RBC 4.42 L Hgb 13.3 Hct 41.2 MCV 93.2 MCH 30.1 MCHC 32.3 RDW Std Deviation 49.1 H RDW Coeff of Jeremiah 14.3 Plt Count 201 MPV 10.1 Immature Gran % (Auto) 0.200 Neut % (Auto) 83.2 H Lymph % (Auto) 6.5 L [place] % (Auto) 9.3 Eos % (Auto) 0.7 Baso % (Auto) 0.1 Absolute Neuts (auto) 10.0 H Absolute Lymphs (auto) 0.78 L Nucleated RBC % 0 Differential Comment Sodium 133 L Potassium 4.4 Chloride 104 Carbon Dioxide 20.0 L Anion Gap 9 BUN 39 H Creatinine 3.66 H Estim Creat Clear Calc 14.71 Est GFR (MDRD) Af Amer 20 L Est GFR (MDRD) Non-Af 17 L BUN/Creatinine Ratio 10.7 Glucose 99 Calcium 9.1 Total Bilirubin 0.80 AST 17 ALT 12 L Alkaline Phosphatase 95 Total Protein 9.2 H Albumin 3.7 Globulin 5.5 H Albumin/Globulin Ratio 0.7 L Urine Color Yellow Urine Clarity Cloudy Urine pH 6.0 Ur Specific [place] 1.010 Urine Protein 100 H Urine Glucose (UA) Normal Urine Ketones Negative Urine Occult Blood 250 H Urine Nitrite Negative Urine Bilirubin Negative Urine Urobilinogen Normal Ur Leukocyte Esterase 500 H Urine RBC 25-50 SEEN Urine WBC 50-100 SEEN Ur Squamous Epith Cells 0-5 SEEN Urine Bacteria 2+ Urine Mucus 0 SEEN Urine Osmolality Ur Random Sodium Urine Creatinine 08/12/20 08/12/20 08/12/20 02:40 05:52 05:52 WBC 13.7 H RBC 3.91 L Hgb 11.9 L Hct 36.8 L MCV 94.1 H MCH 30.4 MCHC 32.3 RDW Std Deviation 49.2 H RDW Coeff of Jeremiah 14.4 Plt Count 163 MPV 9.7 Immature Gran % (Auto) 0.700 Neut % (Auto) 87.6 H Lymph % (Auto) 2.8 L [place] % (Auto) 8.8 Eos % (Auto) 0.0 Baso % (Auto) 0.1 Absolute Neuts (auto) 12.0 H Absolute Lymphs (auto) 0.39 L Nucleated RBC % 0 Differential Comment SCANNED Sodium 135 L Potassium 4.9 Chloride 106 Carbon Dioxide 20.0 L Anion Gap 9 BUN 44 H Creatinine 4.55 H Estim Creat Clear Calc 12.02 Est GFR (MDRD) Af Amer 16 L Est GFR (MDRD) Non-Af 13 L BUN/Creatinine Ratio 9.7 L Glucose 124 H Calcium 8.1 L Total Bilirubin AST ALT Alkaline Phosphatase Total Protein Albumin Globulin Albumin/Globulin Ratio Urine Color Urine Clarity Urine pH Ur Specific [place] Urine Protein Urine Glucose (UA) Urine Ketones Urine Occult Blood Urine Nitrite Urine Bilirubin Urine Urobilinogen Ur Leukocyte Esterase Urine RBC Urine WBC Ur Squamous Epith Cells Urine Bacteria Urine Mucus Urine Osmolality 276 Ur Random Sodium 61 Urine Creatinine 34.80 Radiography Diagnostic Testing: Radiology Impression Renal Ultrasound 08/11/20 20:09 IMPRESSION: Moderate hydronephrosis of the right kidney. at 0039 Reported and signed by: Jayesh Serrato MD Electronically Signed: Jayesh Serrato MD at 0:39 EDT Tel , Service support , Physical Exam Const alert, oriented x3 and no apparent distress HEENT moist oral mucous membranes Head and Scalp: normocephalic Eyes PERRL, EOMs intact bilaterally and conjunctivae normal Neck supple and no JVD Resp normal respiratory effort, no retractions, no use of accessory muscles and clear to auscultation bilaterally Auscultation: Negative for crackles, rales, rhonchi or wheezes Cardio regular rate, regular rhythm, S1 normal heart sound, S2 normal heart sound and no murmurs GI soft to palpation, non-tender and non-distended; Negative for hepatosplenomegaly GI Narrative: Ostomy present Extremity no clubbing, cyanosis or edema Skin no rashes or lesions noted Neuro no focal motor deficits and no sensory deficits noted Psych affect normal Appearance: appropriate Assessment & Plan Assessment/Plan (1) Acute kidney injury: (2) Stage 3a chronic kidney disease: (3) Hypertension: QUALIFIERS: Hypertension type: primary hypertension Qualified Code(s): I10 - Essential (primary) hypertension (4) Renal calculi: (5) Overactive bladder: (6) Colostomy care: PLAN: 1. HENOK on CKD 3a/history of renal calculi -Has been started on tolterodine last week for overactive bladder, this has been discontinued -He has made a little bit a urine today, however his creatinine has gone up from 3.66 to 4.55 -Continue with IV fluids and will continue to monitor his urine output, as well as creatinine -FENa of 5.9 consistent with postobstructive uropathy -Continue with Sandoval -Continue to hold nephrotoxic agents 2. HTN -Blood pressure stable -Can continue with his calcium channel michi 3. Possible UTI -Urine culture is pending -He does have a slightly climbing white count of 13 today with elevated leukocyte esterase as well as 2+ bacteria -Previous urine cultures have grown Pseudomonas DVT: Heparin Charges/Coding Visit Charges Inpatient E&M: 69506 Subs Hosp L2
[2020-08-12] MEDS: Lidocaine Jelly 2% 20 ML Syringe (URO-JET) 20 APPLIC TOPICAL (15:26)
[2020-08-12] MEDS: Ceftriaxone 1 GM/50 ML BAG IV (19:17)
[2020-08-12] MEDS: Menthol/Lanolin/Calamine/Znox 113 GM Tube 1 APPLIC TOPICAL (21:21)
[2020-08-13] VITALS (14 sets, daily range): BP systolic 104–138; BP diastolic 53–73; PULSE 66–87; RESP 16–22; TEMP 36.3–37.2; O2SAT 92–98; BMI 22.6
[2020-08-13] MEDS: 0.9% Normal Saline 1,000 ML 100 ML IV ×3 (01:26→19:45)
[2020-08-13] MEDS: Acetaminophen 325 MG Tablet 650 MG PO (02:31)
[2020-08-13] MEDS: Menthol/Lanolin/Calamine/Znox 113 GM Tube 1 APPLIC TOPICAL ×3 (05:20→21:05)
[2020-08-13 07:16] LABS: Anion Gap 9 (5-15); BUN 55 mg/dL (7-18); BUN/Creat Ratio 8.3 RATIO (10-20); Calcium,Total 7.7 mg/dL (8.5-10.1); Chloride 105 mmol/L (98-107); Creatinine, Serum 6.61 mg/dL (0.70-1.30); EST Glomerular Filtration Rate 9 mL/min (>60); Est Glom Filt Rate - Afr Amer 10 mL/min (>60); Estimated Creatinine Clearance 8.27 ml/min; Glucose 150 mg/dL (74-106); Potassium 5.1 mmol/L (3.5-5.1); Sodium Level 132 mmol/L (136-145)
[2020-08-13 08:21] LABS: Absolute Lymphocyte Count 0.48 X10^3/uL (0.83-4.51); Absolute Neutrophil Count 16.3 X10^3/uL (2.0-7.7); Basophil# 0.01 X10^3/uL; Basophil% 0.1 % (0-1); Hematocrit 36.9 % (40-54); Hemoglobin 11.8 g/dL (13.0-16.5); Lymphocyte # 0.48 X10^3/ul (0.83-4.51); Lymphocyte % 2.6 % (19-41); Mean Corpuscular Hgb 30.3 pg (27.0-32.0); Mean Corpuscular Volume 94.6 fL (80-94); Mean Platelet Vol. 10.1 fl (6.2-12.0); Monocyte# 1.57 X10^3/uL; Monocyte% 8.5 % (0-10); NRBC Flagged by Analyzer 0 % (0-5); Neutrophil # 16.32 X10^3/uL (2.7-7.7); Neutrophil % 88.3 % (47-70); POSITIVE DIFFERENTIAL YES; Platelet Count 147 K/mm3 (150-450); RBC Distribution Width CV 14.8 % (11.6-14.6); RBC Distribution Width SD 51.4 fl (35.1-43.9); White Blood Count 18.5 K/mm3 (4.4-11.0)
[2020-08-13 08:24] LABS: Differential Indicated SCAN CRITERIA MET
[2020-08-13] MEDS: Ceftriaxone 1 GM/50 ML BAG IV (09:31)
[2020-08-13] MEDS: Allopurinol 100 MG Tablet PO (09:36)
[2020-08-13] MEDS: Verapamil SR 180 MG CAPSULE PO (09:36)
[2020-08-13] MEDS: Aspirin E.C. 81 MG Tablet PO (09:36)
[2020-08-13] MEDS: Heparin Injection (Vial) 5,000 UNIT/ML VIAL 5000 UNIT SC ×2 (09:50→21:39)
--- NOTE | 2020-08-13 12:58 | PCM.PN.BLA ---
Progress Note Nephrology brief note. Full consultation report to follow. The patient has acute kidney injury on chronic kidney disease. Renal function has worsened despite Sandoval catheter placement and IV fluid. Urine output has also been decreasing over the last 24 hours. The patient does have right hydronephrosis. There is no hydronephrosis in the left kidney although there is marked discrepant kidney size. His left kidney measures 8.1 cm while the right kidney measures 11.3 cm. There was right hydronephrosis and hydroureter on CT scan from April 2020. So, right hydronephrosis is not new. I will check urine indices. Although there is no need for kidney replacement therapy today, the patient was made aware that dialysis may be necessary in the next 24 hours given the relatively rapid decline in renal function. I will also recheck renal function panel later today and in the morning to assess the trajectory of renal dysfunction. We will also check CPK although I have low suspicion for rhabdomyolysis. I would recommend having Dr. Mariee weigh in on whether he thinks that it would be worthwhile to place a nephrostomy tube or ureteral stent in the right kidney. Above was discussed with Dr. Christianson. Raul Schwartz MD
--- NOTE | 2020-08-13 14:07 | PCM.PN.HOSP ---
Subjective Subjective Doing well, denies any shortness of breath or chest pain. No issues overnight. His creatinine did go up so nephrology was consulted. Objective Data Objective Data Vital Signs: Vital Signs Temp Pulse Resp BP Pulse Ox 98.6 F 77 18 121/67 H 94 08/13/20 09:33 08/13/20 09:33 08/13/20 09:33 08/13/20 09:33 08/13/20 10:46 Oxygen Delivery Method Room Air Weight: 157 lb 13.616 oz Body Mass Index (BMI) 22.6 Intake & Output: Intake and Output for Last 24 Hours 08/12/20 08/13/20 08/14/20 03:59 03:59 03:59 Intake Total 800 / 800 5457 / 5457 1650.00 / 1650.00 Output Total 0 / 0 1225 / 1225 250 / 250 Balance 800 / 800 4232 / 4232 1400.00 / 1400.00 Lab / Micro Data Result Diagrams: 08/13/20 06:34 08/13/20 06:34 Labs: Laboratory Results - last 24 hr 08/13/20 08/13/20 06:34 06:34 WBC 18.5 H RBC 3.90 L Hgb 11.8 L Hct 36.9 L MCV 94.6 H MCH 30.3 MCHC 32.0 RDW Std Deviation 51.4 H RDW Coeff of Jeremiah 14.8 H Plt Count 147 L MPV 10.1 Immature Gran % (Auto) 0.500 Neut % (Auto) 88.3 H Lymph % (Auto) 2.6 L [place] % (Auto) 8.5 Eos % (Auto) 0.0 Baso % (Auto) 0.1 Absolute Neuts (auto) 16.3 H Absolute Lymphs (auto) 0.48 L Nucleated RBC % 0 Differential Comment COMMENT Diff Path Review May foll Sodium 132 L Potassium 5.1 Chloride 105 Carbon Dioxide 18.0 L Anion Gap 9 BUN 55 H Creatinine 6.61 H Estim Creat Clear Calc 8.27 Est GFR (MDRD) Af Amer 10 L Est GFR (MDRD) Non-Af 9 L BUN/Creatinine Ratio 8.3 L Glucose 150 H Calcium 7.7 L Physical Exam Const alert, oriented x3 and no apparent distress HEENT moist oral mucous membranes Head and Scalp: normocephalic Eyes PERRL, EOMs intact bilaterally and conjunctivae normal Neck supple and no JVD Resp normal respiratory effort, no retractions, no use of accessory muscles and clear to auscultation bilaterally Auscultation: wheezes scattered wheezes; Negative for crackles, rales or rhonchi Cardio regular rate, regular rhythm, S1 normal heart sound, S2 normal heart sound and no murmurs GI soft to palpation, non-tender and non-distended; Negative for hepatosplenomegaly GI Narrative: Ostomy present Extremity no clubbing, cyanosis or edema Skin no rashes or lesions noted Neuro no focal motor deficits and no sensory deficits noted Psych affect normal Appearance: appropriate Assessment & Plan Assessment/Plan (1) Acute kidney injury: (2) Stage 3a chronic kidney disease: (3) HENOK (acute kidney injury): (4) UTI (urinary tract infection): PLAN: 1. HENOK on CKD 3a with likely ATN/history of renal calculi -Has been started on tolterodine last week for overactive bladder, this has been discontinued -He has made a little bit a urine today, however his creatinine has gone up from 3.66 to 4.55 to 6.61 -Continue with IV fluids and will continue to monitor his urine output, as well as creatinine -FENa of 5.9 consistent with postobstructive uropathy -Continue with Sandoval, will consult urology for evaluation of possible obstruction secondary to necrosis on the right. In discussion with nephrology did not feel that the left kidney was contributing much to his renal function and therefore booked for an evaluation and possible nephrostomy tube placement if necessary based on urology's evaluation. -Continue to hold nephrotoxic agents 2. HTN -Blood pressure stable -Can continue with his calcium channel michi 3. Possible UTI -Urine culture is pending -He does have a slightly climbing white count of 13 today with elevated leukocyte esterase as well as 2+ bacteria -Previous urine cultures have grown Pseudomonas -Continue with Rocephin DVT: Heparin Charges/Coding Visit Charges Inpatient E&M: 51856 Subs Hosp L2
--- NOTE | 2020-08-13 15:07 | NURSING ---
This RN reviewed SN charting
--- NOTE | 2020-08-13 15:45 | CT_ITS ---
STUDY: CT ABDOMEN AND PELVIS WITHOUT CONTRAST REASON FOR EXAM: Male, 85 years old. Flank pain and fever RADIATION DOSAGE (If Supplied By Facility): CTDIvol = ( 8.38 ) mGy, DLP = ( 422.99 ) mGycm TECHNIQUE: Transaxial images were obtained from the dome of the diaphragm to the symphysis pubis without oral contrast, and without intravenous contrast. Sagittal and coronal images were reconstructed. Individualized dose optimization techniques were used for this CT. COMPARISON: 04/27/2020 FINDINGS: Chronic interstitial changes in both lung with bilateral pleural effusions, right greater than left) atelectasis. Stable aneurysmal dilatation of the ascending thoracic aorta at 4.6 x 4.5 cm. There are calcified coronary vessels Normal liver. Normal gallbladder and extrahepatic biliary system. There are multiple benign calcified granulomata of the spleen. Normal pancreas. Normal bilateral adrenal glands. Stable atrophy of the left kidney. The right kidney shows moderate hydronephrosis and hydroureter with perinephric and periureteral inflammatory stranding. Findings are due to a 8.3 mm calcification in the mid right ureter as seen on axial image 101. Normal visualized stomach. Normal small intestine. There are multiple colonic diverticula consistent with diverticulosis. There is non-visualization of the appendix. There is diffuse atherosclerotic calcification of the abdominal aorta, without a demonstrated aneurysm. Normal inferior vena cava. Normal retroperitoneum. Bladder is collapsed around a Edmondson catheter Bilateral inguinal hernias noted, left contains fat, right contains fat and fluid. There are degenerative bony changes, replaced right hip joint is free of complication CT/Abdomen/Pelvis without Cont IMPRESSION: Right hydronephrosis and hydroureter with perinephric and periureteral inflammatory stranding. Findings due to a 8.3 mm calcification in the mid right ureter Stable atrophy of the left kidney Diverticulosis Degenerative bony changes Bladder is collapsed around a EDMONDSON catheter Bilateral inguinal hernias Stable ascending thoracic aortic aneurysm Degenerative bony changes Electronically Signed: Shayan Mosquera MD at 17:03 EDT , Service support ,
--- NOTE | 2020-08-13 17:03 | CON.PCM.UR_ITS ---
Assessment & Plan Assessment/Plan (1) Renal calculi: PLAN: plan to proceed with cystoscopy and stent placement tonight since his creatinine so I and will call the team in for an emergency stent placement. HPI Consult Data Date of Consult: 08/13/20 HPI Narrative HPI Narrative: ANURADHA NOLAN, is a 85 M who presents to the hospital with abdominal pain but doing well CAT scan was done the demonstrated a atrophic left kidney and a solitary right kidney with obstructing stone in the mid ureter. Of note I saw the patient the office regarding the stone and I offered him tr eatment of the stone was still the kidney and had the latest treatment. At this point is in the hospital with obstructing stone in his right kidney for kidney function do the fact of the right kidney is the larger kidney in the left kidney is an atrophic kidney. [facility] Medical History HTN (hypertension) Kidney stones Home Medications verapamil 180 mg PO DAILY 05/30/14 [History Last Taken 08/11/20] aspirin 81 mg PO DAILY 10/16/18 [History Last Taken 08/11/20] allopurinol 100 mg PO DAILYCM #90 tab 01/03/20 [Rx Last Taken 08/11/20] tolterodine 4 mg PO DAILY 08/11/20 [History Last Taken 08/11/20] Allergy/AdvReac Type Severity Reaction Status Date / Time allopurinol AdvReac Chest Verified 08/11/20 17:57 tightness ciprofloxacin [From Cipro] AdvReac didn't Verified 08/11/20 17:57 know spouse Family History (Updated 08/11/20 @ 20:[address] Taurus Dumont MD) Father Heart disease Surgical History H/O colectomy History of cataract surgery History of herniorrhaphy History of hip surgery Social History (Updated 08/11/20 @ 20:[address] Taurus Dumont MD) Smoking Status: Never smoker ROS Constitutional Constitutional: Denies chills, fever(s) or malaise Eyes Eyes: Denies blurry vision or change in vision ENT HEENT: Reports none Cardiovascular Cardiovascular: Denies chest pain or palpitations Respiratory/Chest Respiratory/Chest: Denies cough or shortness of breath with exertion Gastrointestinal Gastrointestinal: Denies abdominal pain, constipation or diarrhea Musculoskeletal Musculoskeletal: Denies back pain, joint stiffness or joint swelling Integumentary Integumentary: Denies dry skin, jaundice, lesions or rash Neurologic Neurologic: Denies confusion, syncope or weakness Psychiatric Psychiatric: Reports none; Denies anxiety or depression Endocrine Endocrinology: Denies excessive sweating, fatigue or flushing Hematologic/Lymphatic Hematologic/Lymphatic: Denies anemia, easy bleeding or easy bruising Physical Exam Const alert and oriented x3 General Appearance: cooperative HEENT normocephalic, head/scalp atraumatic, EAC's normal and TM's normal bilaterally Eyes PERRL and EOMs intact bilaterally Pupil: sluggish Neck no lymphadenopathy, supple and no JVD General: trachea midline Lymph Lymphatic: no lymphadenopathy noted, lymphedema and lymphadenopathy Resp normal respiratory effort, normal air movement and clear to auscultation bilaterally Cardio regular rate, regular rhythm and peripheral pulses 2+ throughout GI soft to palpation, non-tender and non-distended Extremity normal capillary refill and no clubbing, cyanosis or edema General Extremity: no tenderness to palpation of joints or extremities Skin no rashes or lesions noted General Skin Exam: turgor normal Lesions: no lesions Rashes: no rashes Neuro CN's II-XII intact bilaterally Speech: speech normal Motor Exam: strength 5/5 throughout; Negative for general weakness Psych thought process normal, cooperative and affect normal Appearance: appropriate Lab / Micro Data Result Diagrams: 08/13/20 06:34 08/13/20 06:34 Labs: Laboratory Results - last 24 hr 08/13/20 08/13/20 06:34 06:34 WBC 18.5 H RBC 3.90 L Hgb 11.8 L Hct 36.9 L MCV 94.6 H MCH 30.3 MCHC 32.0 RDW Std Deviation 51.4 H RDW Coeff of Jeremiah 14.8 H Plt Count 147 L MPV 10.1 Immature Gran % (Auto) 0.500 Neut % (Auto) 88.3 H Lymph % (Auto) 2.6 L [place] % (Auto) 8.5 Eos % (Auto) 0.0 Baso % (Auto) 0.1 Absolute Neuts (auto) 16.3 H Absolute Lymphs (auto) 0.48 L Nucleated RBC % 0 Differential Comment COMMENT Diff Path Review May foll Sodium 132 L Potassium 5.1 Chloride 105 Carbon Dioxide 18.0 L Anion Gap 9 BUN 55 H Creatinine 6.61 H Estim Creat Clear Calc 8.27 Est GFR (MDRD) Af Amer 10 L Est GFR (MDRD) Non-Af 9 L BUN/Creatinine Ratio 8.3 L Glucose 150 H Calcium 7.7 L
[2020-08-13 17:26] LABS: Albumin, Serum 2.5 g/dL (3.2-5.0); BUN 63 mg/dL (7-18); BUN/Creat Ratio 8.7 RATIO (10-20); Calcium,Total 7.7 mg/dL (8.5-10.1); Chloride 101 mmol/L (98-107); Creatinine, Serum 7.28 mg/dL (0.70-1.30); EST Glomerular Filtration Rate 8 mL/min (>60); Est Glom Filt Rate - Afr Amer 9 mL/min (>60); Estimated Creatinine Clearance 7.51 ml/min; Glucose 152 mg/dL (74-106); Phosphorus 5.1 mg/dL (2.5-4.9); Potassium 5.1 mmol/L (3.5-5.1); Sodium Level 131 mmol/L (136-145)
[2020-08-13] MEDS: Cefazolin 2 GM in 0.9% Normal Saline 100 ML IV (18:07)
[2020-08-13] MEDS: Lidocaine Jelly 2% 20 ML Syringe (URO-JET) 20 APPLIC (18:31)
--- NOTE | 2020-08-13 18:43 | OP.PCM_ITS ---
Report of Operation Date of Procedure: 08/13/20 Pre-Operative Diagnosis: Obstructing right ureteral calculi acute kidney failure and essentially a solitary kidney. Atrophic left kidney Post-Operative Diagnosis: Same Surgery/Procedure Performed:: Cystoscopy, right retrograde pyelogram, right stent placement Description of Surgical Findings:: 85-year-old male presented to the hospital on 08/11/2020 with acute kidney failure had an ultrasound that demonstrated hydronephrosis on the right side. He had see me in the office and we knew that he had a stone in the lower pole the right kidney I had offered him surgery for this kidney stone but he had delayed the scheduling of this surgery. I was then consulted to see the patient today in the afternoon I ordered a CAT scan which demonstrated right hydronephrosis and obstructing stone in the mid ureter with hydronephrosis. So took the patient to surgery today he underwent general anesthesia. The penis and testicles were prepped and draped in usual sterile fashion. Went into the bladder with a 21 Salvadorean rigid cystourethroscope. There was some mild narrowing of the meatus but is able to navigate the scope through that and then the prostate channel was clear through the prostate had a prior TURP open channel from resection. Then inside the bladder identified the right ureteral orifice I then advanced a wire up the right side I first coiled and would not go up into the kidney so then I backloaded a Pollack catheter performed a retrograde pyelogram we can see a tortuous ureter and then a large stone causing obstruction I was unable to navigate the wire through the tortu osity up into the right kidney. I then performed a retrograde pyelogram in the right kidney drip to confirm location and then left the wire in place and then over the wire advanced a stent it was a 6 Salvadorean by 26 cm stent once a stent was in good position I pulled the wire the stent coiled in the kidney bladder good position I then placed a 16 Salvadorean catheter into the bladder and the patient anesthetic was reversed taken back to the PACU in good condition. Type of Anesthesia: General Admit VTE Documentation VTE Present on Admission: No VTE Mechan Device Prophylaxis: SCD's
[2020-08-13 21:13] LABS: Urine Sodium 47 mmol/L (Not Establ.)
--- NOTE | 2020-08-13 22:30 | PCM.CONS.R ---
Assessment & Plan Assessment/Plan (1) HENOK (acute kidney injury): PLAN: HENOK is secondary to obstructive uropathy. Patient has a right ureteral kidney stone which is obstructing in the setting of nonfunctioning left kidney. He is status post right ureteral stent. The patient was told earlier today that he may still need temporary dialysis. However, I am optimistic now that obstruction has been relieved that he will regain some renal function in the next 24 to 48 hours. There is no hyperkalemia or severe acidosis. Therefore, there is no need for kidney replacement therapy today. Recheck renal function again tomorrow. (2) Stage 3a chronic kidney disease: PLAN: Baseline serum creatinine is around 1.5 to 1.6 mg/dL. The patient has small left kidney which is likely nonfunctioning. (3) Renal calculi: PLAN: The patient has right ureteral stone which is obstructing on CT scan. He is status post cystoscopy and right ureteral stent placement by Dr. Mariee. I am hopeful that the patient will regain renal function. The patient will need outpatient metabolic work-up to prevent stone formation in the future. (4) Hypertension: QUALIFIERS: Hypertension type: primary hypertension Qualified Code(s): I10 - Essential (primary) hypertension PLAN: BP is acceptable. Continue current dose of verapamil. HPI Consult Data Date of Consult: 08/13/20 HPI Narrative HPI Narrative: ANURADHA NOLAN, is a 85 M who presents to the hospital on 08/11/2020 with decreased urine output. The patient was also found to have elevated serum creatinine at 3.66 mg/dL. Prior baseline serum creatinine was 1.54 mg/dL. The patient denies gross hematuria, dysuria, or flank pain. He does have a history of kidney stones in the past. The patient has been given IV fluid, and Edmondson catheter has been placed. Unfortunately, serum creatinine has continued to rise over the last 2 days. Serum creatinine increased to 4.55 mg/dL on 08/12/2020. Serum creatinine is 6.61 mg/dL today. The patient has mild shortness of breath and wheezing. However, he denies nausea, vomiting, or diarrhea. Urine output has been marginal, but there is no gross hematuria. Again, he has denied flank pain. Ultrasound of the kidneys reveals right hydronephrosis and atrophic left kidney. The patient has not been on any NSAIDs. He has not been exposed to any IV contrast since admission. [facility] Medical History (Updated 08/13/20 @ 17:50 by Katelyn Mera) Arthritis Colitis HTN (hypertension) Kidney stones Home Medications verapamil 180 mg PO DAILY 05/30/14 [History Last Taken 08/11/20] aspirin 81 mg PO DAILY 10/16/18 [History Last Taken 08/11/20] allopurinol 100 mg PO DAILYCM #90 tab 01/03/20 [Rx Last Taken 08/11/20] tolterodine 4 mg PO DAILY 08/11/20 [History Last Taken 08/11/20] Allergy/AdvReac Type Severity Reaction Status Date / Time allopurinol AdvReac Chest Verified 08/11/20 17:57 tightness ciprofloxacin [From Cipro] AdvReac didn't Verified 08/11/20 17:57 know spouse Family History (Updated 08/11/20 @ 20:[address] Taurus Dumont MD) Father Heart disease Surgical History H/O colectomy History of cataract surgery History of herniorrhaphy History of hip surgery Social History (Updated 08/11/20 @ 20:[address] Taurus Dumont MD) Smoking Status: Never smoker ROS ROS Narrative 10 out of 10 organ systems were reviewed. No other contributory information except for what is already stated in HPI. Physical Exam Narrative General: Alert oriented x3 in no apparent distress HEENT: Normocephalic, atraumatic. Mucous membrane moist without erythema. Hearing is intact Neck: Supple, no JVD Heart: Normal S1, S2 no rubs or murmurs Lungs: Expiratory wheeze diffusely. No crackles Abdomen: Normal active bowel sound, soft, nontender to palpation. No guarding or rebound Extremity: No edema. There is no clubbing or cyanosis Neurological: No focal neurologic deficit Psychiatric: Normal mood and affect Skin: No rash, skin is warm and dry Lab / Micro Data Result Diagrams: 08/13/20 06:34 08/13/20 16:30 Labs: Laboratory Results - last 24 hr 08/13/20 08/13/20 08/13/20 06:34 06:34 16:30 WBC 18.5 H RBC 3.90 L Hgb 11.8 L Hct 36.9 L MCV 94.6 H MCH 30.3 MCHC 32.0 RDW Std Deviation 51.4 H RDW Coeff of Jeremiah 14.8 H Plt Count 147 L MPV 10.1 Immature Gran % (Auto) 0.500 Neut % (Auto) 88.3 H Lymph % (Auto) 2.6 L Long % (Auto) 8.5 Eos % (Auto) 0.0 Baso % (Auto) 0.1 Absolute Neuts (auto) 16.3 H Absolute Lymphs (auto) 0.48 L Nucleated RBC % 0 Differential Comment COMMENT Diff Path Review May foll Sodium 132 L 131 L Potassium 5.1 5.1 Chloride 105 101 Carbon Dioxide 18.0 L 17.0 L Anion Gap 9 BUN 55 H 63 H Creatinine 6.61 H 7.28 H Estim Creat Clear Calc 8.27 7.51 Est GFR (MDRD) Af Amer 10 L 9 L Est GFR (MDRD) Non-Af 9 L 8 L BUN/Creatinine Ratio 8.3 L 8.7 L Glucose 150 H 152 H Calcium 7.7 L 7.7 L Phosphorus 5.1 H Albumin 2.5 L Ur Random Sodium Urine Creatinine 08/13/20 08/13/20 20:55 20:55 WBC RBC Hgb Hct MCV MCH MCHC RDW Std Deviation RDW Coeff of Jeremiah Plt Count MPV Immature Gran % (Auto) Neut % (Auto) Lymph % (Auto) Long % (Auto) Eos % (Auto) Baso % (Auto) Absolute Neuts (auto) Absolute Lymphs (auto) Nucleated RBC % Differential Comment Diff Path Review Sodium Potassium Chloride Carbon Dioxide Anion Gap BUN Creatinine Estim Creat Clear Calc Est GFR (MDRD) Af Amer Est GFR (MDRD) Non-Af BUN/Creatinine Ratio Glucose Calcium Phosphorus Albumin Ur Random Sodium 47 Urine Creatinine 60.60 Radiology Impression Abdomen/Pelvis CT 08/13/20 15:45 IMPRESSION: Right hydronephrosis and hydroureter with perinephric and periureteral inflammatory stranding. Findings due to a 8.3 mm calcification in the mid right ureter Stable atrophy of the left kidney Diverticulosis Degenerative bony changes Bladder is collapsed around a EDMONDSON catheter Bilateral inguinal hernias Stable ascending thoracic aortic aneurysm Degenerative bony changes Electronically Signed: Shayan Mosquera MD at 17:03 EDT , Service support ,
[2020-08-14] VITALS (7 sets, daily range): BP systolic 109–127; BP diastolic 62–75; PULSE 75–82; RESP 18–22; TEMP 36.5–36.9; O2SAT 93–98
[2020-08-14] MEDS: 0.9% Normal Saline 1,000 ML 100 ML IV ×2 (05:02→19:29)
[2020-08-14] MEDS: Menthol/Lanolin/Calamine/Znox 113 GM Tube 1 APPLIC TOPICAL ×3 (05:05→21:34)
[2020-08-14 06:47] LABS: Absolute Lymphocyte Count 0.46 X10^3/uL (0.83-4.51); Absolute Neutrophil Count 9.9 X10^3/uL (2.0-7.7); Basophil# 0.01 X10^3/uL; Basophil% 0.1 % (0-1); Hematocrit 36.2 % (40-54); Hemoglobin 11.7 g/dL (13.0-16.5); Lymphocyte # 0.46 X10^3/ul (0.83-4.51); Lymphocyte % 3.8 % (19-41); Mean Corp Hgb Conc 32.3 g/dL (32-36); Mean Corpuscular Hgb 30.6 pg (27.0-32.0); Mean Corpuscular Volume 94.8 fL (80-94); Mean Platelet Vol. 10.1 fl (6.2-12.0); Monocyte# 1.67 X10^3/uL; Monocyte% 13.8 % (0-10); NRBC Flagged by Analyzer 0 % (0-5); Neutrophil # 9.87 X10^3/uL (2.7-7.7); Neutrophil % 81.6 % (47-70); POSITIVE DIFFERENTIAL YES; Platelet Count 124 K/mm3 (150-450); RBC Distribution Width CV 14.8 % (11.6-14.6); RBC Distribution Width SD 51.8 fl (35.1-43.9); Red Blood Count 3.82 M/mm3 (4.6-6.2); White Blood Count 12.1 K/mm3 (4.4-11.0)
[2020-08-14 06:57] LABS: Albumin, Serum 2.2 g/dL (3.2-5.0); BUN 68 mg/dL (7-18); BUN/Creat Ratio 9.6 RATIO (10-20); Calcium,Total 7.8 mg/dL (8.5-10.1); Chloride 104 mmol/L (98-107); EST Glomerular Filtration Rate 8 mL/min (>60); Est Glom Filt Rate - Afr Amer 10 mL/min (>60); Glucose 133 mg/dL (74-106); Phosphorus 5.8 mg/dL (2.5-4.9); Potassium 5.1 mmol/L (3.5-5.1); Sodium Level 131 mmol/L (136-145)
[2020-08-14 07:00] LABS: Differential Indicated SCAN CRITERIA MET
[2020-08-14 07:23] LABS: Differential Comment SCANNED
--- NOTE | 2020-08-14 09:37 | PCM.PN.HOSP ---
Subjective Subjective Doing well, feels better than yesterday since he has had the stent put in. Still not making a whole lot of urine Objective Data Objective Data Vital Signs: Vital Signs Temp Pulse Resp BP Pulse Ox 98.1 F 75 18 113/68 95 08/14/20 08:30 08/14/20 08:30 08/14/20 08:30 08/14/20 08:30 08/14/20 08:30 Oxygen Flow Rate (L/min) 3 Oxygen Delivery Method Room Air Weight: 157 lb 13.616 oz Body Mass Index (BMI) 22.6 Intake & Output: Intake and Output for Last 24 Hours 08/13/20 08/14/20 08/15/20 03:59 03:59 03:59 Intake Total 5457 / 5457 3211.67 / 3211.67 1128.33 / 1128.33 Output Total 1225 / 1225 530 / 530 550 / 550 Balance 4232 / 4232 2681.67 / 2681.67 578.33 / 578.33 Lab / Micro Data Result Diagrams: 08/14/20 06:22 08/14/20 06:22 Labs: Laboratory Results - last 24 hr 08/13/20 08/13/20 08/13/20 16:30 20:55 20:55 WBC RBC Hgb Hct MCV MCH MCHC RDW Std Deviation RDW Coeff of Jeremiah Plt Count MPV Immature Gran % (Auto) Neut % (Auto) Lymph % (Auto) [place] % (Auto) Eos % (Auto) Baso % (Auto) Absolute Neuts (auto) Absolute Lymphs (auto) Nucleated RBC % Differential Comment Diff Path Review Sodium 131 L Potassium 5.1 Chloride 101 Carbon Dioxide 17.0 L BUN 63 H Creatinine 7.28 H Estim Creat Clear Calc 7.51 Est GFR (MDRD) Af Amer 9 L Est GFR (MDRD) Non-Af 8 L BUN/Creatinine Ratio 8.7 L Glucose 152 H Calcium 7.7 L Phosphorus 5.1 H Albumin 2.5 L Ur Random Sodium 47 Urine Creatinine 60.60 08/14/20 08/14/20 06:22 06:22 WBC 12.1 H RBC 3.82 L Hgb 11.7 L Hct 36.2 L MCV 94.8 H MCH 30.6 MCHC 32.3 RDW Std Deviation 51.8 H RDW Coeff of Jeremiah 14.8 H Plt Count 124 L MPV 10.1 Immature Gran % (Auto) 0.700 Neut % (Auto) 81.6 H Lymph % (Auto) 3.8 L [place] % (Auto) 13.8 H Eos % (Auto) 0.0 Baso % (Auto) 0.1 Absolute Neuts (auto) 9.9 H Absolute Lymphs (auto) 0.46 L Nucleated RBC % 0 Differential Comment SCANNED Diff Path Review June foll Sodium 131 L Potassium 5.1 Chloride 104 Carbon Dioxide 16.0 L BUN 68 H Creatinine 7.10 H Estim Creat Clear Calc 7.70 Est GFR (MDRD) Af Amer 10 L Est GFR (MDRD) Non-Af 8 L BUN/Creatinine Ratio 9.6 L Glucose 133 H Calcium 7.8 L Phosphorus 5.8 H Albumin 2.2 L Ur Random Sodium Urine Creatinine Micro: Microbiology 08/12/20 16:55 Urine, Catheterized Urine Culture - Preliminary GNR Poss Pseudomonas sp Radiography Diagnostic Testing: Radiology Impression Abdomen/Pelvis CT 08/13/20 15:45 IMPRESSION: Right hydronephrosis and hydroureter with perinephric and periureteral inflammatory stranding. Findings due to a 8.3 mm calcification in the mid right ureter Stable atrophy of the left kidney Diverticulosis Degenerative bony changes Bladder is collapsed around a EDMONDSON catheter Bilateral inguinal hernias Stable ascending thoracic aortic aneurysm Degenerative bony changes Electronically Signed: Shayan Mosquera MD at 17:03 EDT , Service support , Physical Exam Const alert, oriented x3 and no apparent distress HEENT normocephalic and moist oral mucous membranes Eyes PERRL, EOMs intact bilaterally and conjunctivae normal Neck supple and no JVD Resp normal respiratory effort, no retractions, no use of accessory muscles and clear to auscultation bilaterally Auscultation: Negative for crackles, rales, rhonchi or wheezes Cardio regular rate, regular rhythm, S1 normal heart sound, S2 normal heart sound and no murmurs GI soft to palpation, non-tender and non-distended; Negative for hepatosplenomegaly GI Narrative: Ostomy present Extremity no clubbing, cyanosis or edema Skin no rashes or lesions noted Neuro no focal motor deficits and no sensory deficits noted Psych affect normal Appearance: appropriate Assessment & Plan Assessment/Plan (1) Acute kidney injury: (2) Stage 3a chronic kidney disease: (3) UTI (urinary tract infection): (4) HENOK (acute kidney injury): (5) Renal calculi: PLAN: 1. HENOK on CKD 3a with likely ATN/right ureteral stone -Has been started on tolterodine last week for overactive bladder, this has been discontinued -He has made a little bit a urine today, however his creatinine has gone up from 3.66 to 4.55 to 6.61 03/15 -Continue with IV fluids and will continue to monitor his urine output, as well as creatinine -FENa of 5.9 consistent with postobstructive uropathy -Continue with Edmondson, will consult urology for evaluation of possible obstruction secondary to necrosis on the right. In discussion with nephrology did not feel that the left kidney was contributing much to his renal function and therefore booked for an evaluation and possible nephrostomy tube placement if necessary based on urology's evaluation. -Continue to hold nephrotoxic agents 2. HTN -Blood pressure stable -Can continue with his calcium channel michi 3. Possible UTI -Urine culture is pending -White count is improved today -Previous urine cultures have grown Pseudomonas -Continue with Rocephin DVT: Heparin Charges/Coding Visit Charges Inpatient E&M: 13589 Subs Hosp L2
[2020-08-14 10:36] LABS: Pathologist Review Reviewed
[2020-08-14 10:41] LABS: Pathologist Review Reviewed
[2020-08-14] MEDS: Aspirin E.C. 81 MG Tablet PO (11:30)
[2020-08-14] MEDS: Verapamil SR 180 MG CAPSULE PO (11:30)
[2020-08-14] MEDS: Allopurinol 100 MG Tablet PO (11:30)
[2020-08-14] MEDS: Heparin Injection (Vial) 5,000 UNIT/ML VIAL 5000 UNIT SC ×2 (11:31→21:38)
[2020-08-14] MEDS: Ceftriaxone 1 GM/50 ML BAG IV (11:31)
--- NOTE | 2020-08-14 11:57 | PN.RENAL_ITS ---
Documented by User: JUAN RAMON Vazquez 08/14/20 12:28 Subjective Subjective Sitting in chair. Stated was nauseated earlier, denies any emesis. Denies any other complaints with the exception of not much of an appetite for breakfast. Objective Data Objective Data Vital Signs: Vital Signs Temp Pulse Resp BP Pulse Ox 98.1 F 75 22 H 123/67 H 98 08/14/20 11:26 08/14/20 11:26 08/14/20 11:26 08/14/20 11:26 08/14/20 11:26 Oxygen Flow Rate (L/min) 3 Oxygen Delivery Method Room Air Weight: 71.6 kg Body Mass Index (BMI) 22.6 Intake & Output: Intake and Output for Last 24 Hours 08/12/20 08/13/20 08/14/20 23:59 23:59 23:59 Intake Total 5192 / 5192 3776.67 / 3776.67 1776.66 / 1776.66 Output Total 1225 / 1225 530 / 530 550 / 550 Balance 3967 / 3967 3246.67 / 3246.67 1226.66 / 1226.66 Lab / Micro Data Result Diagrams: 08/15/20 05:50 08/15/20 05:50 Labs: Laboratory Results - last 24 hr 08/13/20 08/13/20 08/13/20 06:34 16:30 20:55 WBC RBC Hgb Hct MCV MCH MCHC RDW Std Deviation RDW Coeff of Jeremiah Plt Count MPV Immature Gran % (Auto) Neut % (Auto) Lymph % (Auto) [place] % (Auto) Eos % (Auto) Baso % (Auto) Absolute Neuts (auto) Absolute Lymphs (auto) Nucleated RBC % Differential Comment Diff Path Review Reviewed Sodium 131 L Potassium 5.1 Chloride 101 Carbon Dioxide 17.0 L BUN 63 H Creatinine 7.28 H Estim Creat Clear Calc 7.51 Est GFR (MDRD) Af Amer 9 L Est GFR (MDRD) Non-Af 8 L BUN/Creatinine Ratio 8.7 L Glucose 152 H Calcium 7.7 L Phosphorus 5.1 H Albumin 2.5 L Ur Random Sodium 47 Urine Creatinine 08/13/20 08/14/20 08/14/20 20:55 06:22 06:22 WBC 12.1 H RBC 3.82 L Hgb 11.7 L Hct 36.2 L MCV 94.8 H MCH 30.6 MCHC 32.3 RDW Std Deviation 51.8 H RDW Coeff of Jeremiah 14.8 H Plt Count 124 L MPV 10.1 Immature Gran % (Auto) 0.700 Neut % (Auto) 81.6 H Lymph % (Auto) 3.8 L [place] % (Auto) 13.8 H Eos % (Auto) 0.0 Baso % (Auto) 0.1 Absolute Neuts (auto) 9.9 H Absolute Lymphs (auto) 0.46 L Nucleated RBC % 0 Differential Comment SCANNED Diff Path Review Reviewed Sodium 131 L Potassium 5.1 Chloride 104 Carbon Dioxide 16.0 L BUN 68 H Creatinine 7.10 H Estim Creat Clear Calc 7.70 Est GFR (MDRD) Af Amer 10 L Est GFR (MDRD) Non-Af 8 L BUN/Creatinine Ratio 9.6 L Glucose 133 H Calcium 7.8 L Phosphorus 5.8 H Albumin 2.2 L Ur Random Sodium Urine Creatinine 60.60 Micro: Microbiology 08/12/20 16:55 Urine, Catheterized Urine Culture - Preliminary GNR Poss Pseudomonas sp Radiography Diagnostic Testing: Radiology Impression Abdomen/Pelvis CT 08/13/20 15:45 IMPRESSION: Right hydronephrosis and hydroureter with perinephric and periureteral inflammatory stranding. Findings due to a 8.3 mm calcification in the mid right ureter Stable atrophy of the left kidney Diverticulosis Degenerative bony changes Bladder is collapsed around a EDMONDSON catheter Bilateral inguinal hernias Stable ascending thoracic aortic aneurysm Degenerative bony changes Electronically Signed: Shayan Mosquera MD at 17:03 EDT , Service support , Physical Exam Const alert and oriented x3 HEENT normocephalic Resp clear to auscultation bilaterally Bladder / Kidney Exam: catheter in place Extremity no clubbing, cyanosis or edema Assessment & Plan Assessment/Plan (1) HENOK (acute kidney injury): PLAN: HENOK is secondary to obstructive uropathy. Patient has a right ureteral kidney stone which is obstructing in the setting of nonfunctioning left kidney. He is status post right ureteral stent. Creatinine 1.5 mg/dL on 05/12/2020. Creatinine on admission (08/11/2020 3.6 mg/dL), creatinine peaked at 7.28 mg/dL on 08/13/2020 and today creatinine 7.10 mg/dL. The patient was told that he may need temporary dialysis. Hopefully now that obstruction has been relieved that he will regain some renal function in the next 24 to 48 hours. If discussed with the patient today by us that there is no acute indication for renal placement therapy today. There is no hyperkalemia or severe acidosis. Therefore, there is no need for renal replacement therapy today, no significant uremic symptoms and potassium acceptable at 5.1. Will add low K+ diet restrictions, add protein supplement. We will give 1 L normal saline today. Recheck renal function again tomorrow. (2) Stage 3a chronic kidney disease: PLAN: Baseline serum creatinine is around 1.5 to 1.6 mg/dL. The patient has small left kidney which is likely nonfunctioning. (3) Renal calculi: PLAN: The patient has right ureteral stone which is obstructing on CT scan. He is status post cystoscopy and right ureteral stent placement by Dr. Mariee. I am hopeful that the patient will regain renal function. The patient will need outpatient metabolic work-up to prevent stone formation in the future. (4) Hypertension: QUALIFIERS: Hypertension type: primary hypertension Qualified Code(s): I10 - Essential (primary) hypertension PLAN: BP is acceptable. Continue current dose of verapamil. Documented by User: Dr. Debbie Mir MD 08/15/20 09:16 Objective Data Lab / Micro Data Result Diagrams: 08/15/20 05:50 08/15/20 05:50
[2020-08-14] MEDS: 0.9% Normal Saline 1,000 ML 250 ML IV (13:24)
[2020-08-14] MEDS: Nepro Liquid 120 ML LIQUID PO ×2 (13:24→21:36)
--- NOTE | 2020-08-14 15:40 | CASEMGMT ---
RN CM in to pt room as therapy is recommending additional therapy. Pt states he does not feel he needs HHC [place]. States he suffers from chronic laziness. Made pt aware that if he changes his mind, he would notify his PCP once home. Pt verbalized understanding.
[2020-08-14] MEDS: Acetaminophen 325 MG Tablet 650 MG PO (17:24)
[2020-08-15] MEDS: Menthol/Lanolin/Calamine/Znox 113 GM Tube 1 APPLIC TOPICAL ×3 (04:06→20:09)
[2020-08-15 04:08] VITALS: BP 128/70; PULSE 82; RESP 23; TEMP 36.7; O2SAT 95
[2020-08-15] MEDS: 0.9% Normal Saline 1,000 ML 100 ML IV (05:17)
[2020-08-15 05:59] LABS: Absolute Lymphocyte Count 0.34 X10^3/uL (0.83-4.51); Absolute Neutrophil Count 9.2 X10^3/uL (2.0-7.7); Basophil# 0.01 X10^3/uL; Basophil% 0.1 % (0-1); Hematocrit 36.2 % (40-54); Hemoglobin 11.8 g/dL (13.0-16.5); Lymphocyte # 0.34 X10^3/ul (0.83-4.51); Lymphocyte % 3.1 % (19-41); Mean Corp Hgb Conc 32.6 g/dL (32-36); Mean Corpuscular Hgb 30.1 pg (27.0-32.0); Mean Corpuscular Volume 92.3 fL (80-94); Mean Platelet Vol. 9.7 fl (6.2-12.0); Monocyte# 1.42 X10^3/uL; Monocyte% 12.9 % (0-10); NRBC Flagged by Analyzer 0 % (0-5); Neutrophil % 83.2 % (47-70); POSITIVE DIFFERENTIAL YES; Platelet Count 142 K/mm3 (150-450); RBC Distribution Width CV 14.7 % (11.6-14.6); RBC Distribution Width SD 49.9 fl (35.1-43.9); Red Blood Count 3.92 M/mm3 (4.6-6.2); White Blood Count 11.1 K/mm3 (4.4-11.0)
[2020-08-15 06:09] LABS: Differential Indicated SCAN CRITERIA MET
[2020-08-15 06:24] LABS: Differential Comment SCANNED
[2020-08-15 06:41] LABS: Anion Gap 10 (5-15); BUN 69 mg/dL (7-18); BUN/Creat Ratio 11.3 RATIO (10-20); Calcium,Total 7.7 mg/dL (8.5-10.1); Chloride 108 mmol/L (98-107); Creatinine, Serum 6.08 mg/dL (0.70-1.30); EST Glomerular Filtration Rate 9 mL/min (>60); Est Glom Filt Rate - Afr Amer 11 mL/min (>60); Glucose 122 mg/dL (74-106); Potassium 4.3 mmol/L (3.5-5.1); Sodium Level 132 mmol/L (136-145)
[2020-08-15 07:23] VITALS: O2SAT 94
[2020-08-15 08:47] VITALS: BP 131/72; PULSE 78; RESP 20; TEMP 36.9; O2SAT 95
[2020-08-15] MEDS: Ceftriaxone 1 GM/50 ML BAG IV (09:44)
[2020-08-15] MEDS: Verapamil SR 180 MG CAPSULE PO (10:22)
[2020-08-15] MEDS: Allopurinol 100 MG Tablet PO (10:22)
[2020-08-15] MEDS: Aspirin E.C. 81 MG Tablet PO (10:22)
[2020-08-15] MEDS: Heparin Injection (Vial) 5,000 UNIT/ML VIAL 5000 UNIT SC ×2 (10:22→20:18)
[2020-08-15] MEDS: Nepro Liquid 120 ML LIQUID PO ×4 (10:34→20:18)
--- NOTE | 2020-08-15 10:42 | PCM.PN.HOSP ---
Subjective Subjective Feels much better today. Creatinine is improving down to 6. Objective Data Objective Data Vital Signs: Vital Signs Temp Pulse Resp BP Pulse Ox 98.4 F 78 20 H 131/72 H 95 08/15/20 08:47 08/15/20 08:47 08/15/20 08:47 08/15/20 08:47 08/15/20 08:47 Oxygen Flow Rate (L/min) 3 Oxygen Delivery Method Room Air Weight: 157 lb 13.616 oz Body Mass Index (BMI) 22.6 Intake & Output: Intake and Output for Last 24 Hours 08/14/20 08/15/20 08/16/20 03:59 03:59 03:59 Intake Total 3211.67 / 3211.67 4174.99 / 4174.99 1180 / 1180 Output Total 530 / 530 1750 / 1750 1000 / 1000 Balance 2681.67 / 2681.67 2424.99 / 2424.99 180 / 180 Lab / Micro Data Result Diagrams: 08/15/20 05:50 08/15/20 05:50 Labs: Laboratory Results - last 24 hr 08/15/20 08/15/20 05:50 05:50 WBC 11.1 H RBC 3.92 L Hgb 11.8 L Hct 36.2 L MCV 92.3 MCH 30.1 MCHC 32.6 RDW Std Deviation 49.9 H RDW Coeff of Jeremiah 14.7 H Plt Count 142 L MPV 9.7 Immature Gran % (Auto) 0.700 Neut % (Auto) 83.2 H Lymph % (Auto) 3.1 L [place] % (Auto) 12.9 H Eos % (Auto) 0.0 Baso % (Auto) 0.1 Absolute Neuts (auto) 9.2 H Absolute Lymphs (auto) 0.34 L Nucleated RBC % 0 Differential Comment SCANNED Sodium 132 L Potassium 4.3 Chloride 108 H Carbon Dioxide 14.0 L Anion Gap 10 BUN 69 H Creatinine 6.08 H Estim Creat Clear Calc 9.00 Est GFR (MDRD) Af Amer 11 L Est GFR (MDRD) Non-Af 9 L BUN/Creatinine Ratio 11.3 Glucose 122 H Calcium 7.7 L Micro: Microbiology 08/12/20 16:55 Urine, Catheterized Urine Culture - Final Pseudomonas putida Physical Exam Const alert, oriented x3 and no apparent distress HEENT normocephalic and moist oral mucous membranes Eyes PERRL, EOMs intact bilaterally and conjunctivae normal Neck supple and no JVD Resp normal respiratory effort, no retractions and no use of accessory muscles Auscultation: wheezes; Negative for crackles, rales or rhonchi Cardio regular rate, regular rhythm, S1 normal heart sound, S2 normal heart sound and no murmurs GI soft to palpation, non-tender and non-distended; Negative for hepatosplenomegaly GI Narrative: Ostomy present Extremity no clubbing, cyanosis or edema Skin no rashes or lesions noted Neuro no focal motor deficits and no sensory deficits noted Psych affect normal Appearance: appropriate Assessment & Plan Assessment/Plan (1) Acute kidney injury: (2) Stage 3a chronic kidney disease: (3) UTI (urinary tract infection): (4) Renal calculi: PLAN: 1. HENOK on CKD 3a with likely ATN/right ureteral stone -Has been started on tolterodine last week for overactive bladder, this has been discontinued -Creatinine is improved down to 6, will continue to trend and if he continues to trend downward could consider to discharge in the next 24 to 48 hours -Continue with IV fluids and will continue to monitor his urine output, as well as creatinine -FENa of 5.9 consistent with postobstructive uropathy -Continue with Sandoval, will consult urology for evaluation of possible obstruction secondary to necrosis on the right. In discussion with nephrology did not feel that the left kidney was contributing much to his renal function and therefore booked for an evaluation and possible nephrostomy tube placement if necessary based on urology's evaluation. -Continue to hold nephrotoxic agents -He does have slight wheezing today on exam, will decrease his fluids 2. HTN -Blood pressure stable -Can continue with his calcium channel michi 3. Possible UTI -Urine culture with only 1-10,000 CFU's, growing Pseudomonas put it -We will stop Rocephin DVT: Heparin Charges/Coding Visit Charges Inpatient E&M: 44837 Subs Hosp L2
[2020-08-15 14:45] VITALS: BP 120/68; PULSE 77; RESP 20; TEMP 36.9; O2SAT 93
[2020-08-15] MEDS: 0.9% Normal Saline 1,000 ML 75 ML IV (17:19)
[2020-08-15 19:31] VITALS: BP 138/66; PULSE 80; RESP 24; TEMP 36.6; O2SAT 95
--- NOTE | 2020-08-15 19:39 | PCM.PN.BLA ---
Progress Note Notified by nurse that patient has audible wheezes throughout ; and also crackles at bases.. IV fluids running at 75 mL's per hour. Creatinine around 6. Lasix 80 mg IV push x1. Get stat chest x-ray.
--- NOTE | 2020-08-15 19:50 | RAD_ITS ---
STUDY: X-RAY CHEST REASON FOR EXAM: Male, 85 years old. sob/wheezes TECHNIQUE: 1 view COMPARISON: 10/16/2018 FINDINGS: Please see the impression. RAD/Chest 1 View (Portable) IMPRESSION: Interval development of small right-sided pleural effusion. Right basilar patchy opacities, likely atelectasis. Aspiration or pneumonia not excluded. Mild pulmonary vascular congestion. No pneumothorax. Borderline cardiomegaly. Multilevel thoracic spondylosis. Electronically Signed: Nathaniel Saavedra MD at 20:44 EDT Tel , Service support ,
[2020-08-15] MEDS: 0.9% Saline Lock 10 ML Syringe IV (20:09)
[2020-08-15] MEDS: Furosemide 100 MG/10 ML Vial 80 MG IV (20:09)
[2020-08-16] VITALS (9 sets, daily range): BP systolic 130–146; BP diastolic 68–85; PULSE 70–101; RESP 18–22; TEMP 36.1–36.7; O2SAT 95–99; BMI 22.6
[2020-08-16] MEDS: Menthol/Lanolin/Calamine/Znox 113 GM Tube 1 APPLIC TOPICAL ×3 (05:57→21:06)
[2020-08-16 07:02] LABS: Absolute Lymphocyte Count 0.41 X10^3/uL (0.83-4.51); Basophil# 0.01 X10^3/uL; Basophil% 0.1 % (0-1); Eosinophil# 0.01 X10^3/uL; Eosinophils% 0.1 % (0-5); Hematocrit 36.6 % (40-54); Hemoglobin 11.8 g/dL (13.0-16.5); Lymphocyte # 0.41 X10^3/ul (0.83-4.51); Lymphocyte % 4.2 % (19-41); Mean Corp Hgb Conc 32.2 g/dL (32-36); Mean Corpuscular Hgb 30.1 pg (27.0-32.0); Mean Corpuscular Volume 93.4 fL (80-94); Mean Platelet Vol. 10.2 fl (6.2-12.0); Monocyte# 1.32 X10^3/uL; Monocyte% 13.5 % (0-10); NRBC Flagged by Analyzer 0 % (0-5); Neutrophil # 7.97 X10^3/uL (2.7-7.7); Neutrophil % 81.6 % (47-70); POSITIVE DIFFERENTIAL YES; Platelet Count 179 K/mm3 (150-450); RBC Distribution Width CV 14.9 % (11.6-14.6); RBC Distribution Width SD 51.9 fl (35.1-43.9); Red Blood Count 3.92 M/mm3 (4.6-6.2); White Blood Count 9.8 K/mm3 (4.4-11.0)
[2020-08-16 07:05] LABS: Differential Indicated SCAN CRITERIA MET
[2020-08-16 07:24] LABS: Anion Gap 14 (5-15); BUN 76 mg/dL (7-18); BUN/Creat Ratio 12.4 RATIO (10-20); Calcium,Total 8.1 mg/dL (8.5-10.1); Chloride 103 mmol/L (98-107); Creatinine, Serum 6.15 mg/dL (0.70-1.30); EST Glomerular Filtration Rate 9 mL/min (>60); Est Glom Filt Rate - Afr Amer 11 mL/min (>60); Estimated Creatinine Clearance 8.89 ml/min; Glucose 123 mg/dL (74-106); Potassium 4.1 mmol/L (3.5-5.1); Sodium Level 133 mmol/L (136-145)
[2020-08-16 07:25] LABS: Differential Comment SCANNED
[2020-08-16] MEDS: Verapamil SR 180 MG CAPSULE PO (09:22)
[2020-08-16] MEDS: Allopurinol 100 MG Tablet PO (09:22)
[2020-08-16] MEDS: Nepro Liquid 120 ML LIQUID PO ×3 (09:22→21:06)
[2020-08-16] MEDS: Heparin Injection (Vial) 5,000 UNIT/ML VIAL 5000 UNIT SC ×2 (09:22→21:06)
[2020-08-16] MEDS: Aspirin E.C. 81 MG Tablet PO (09:22)
--- NOTE | 2020-08-16 10:37 | PCM.PN.HOSP ---
Subjective Subjective Doing well, was wheezing last night but was not requiring oxygen. Was given 80 mg of IV Lasix creatinine has bumped a little bit so we will start him on fluids again Objective Data Objective Data Vital Signs: Vital Signs Temp Pulse Resp BP Pulse Ox 98.0 F 101 H 22 H 130/68 H 95 08/16/20 08:12 08/16/20 08:12 08/16/20 08:12 08/16/20 08:12 08/16/20 09:57 Oxygen Flow Rate (L/min) 3 Oxygen Delivery Method Room Air Weight: 157 lb 13.616 oz Body Mass Index (BMI) 22.6 Intake & Output: Intake and Output for Last 24 Hours 08/15/20 08/16/20 08/17/20 03:59 03:59 03:59 Intake Total 4174.99 / 4174.99 3865 / 3865 Output Total 1750 / 1750 2400 / 2400 1350 / 1350 Balance 2424.99 / 2424.99 1465 / 1465 -1350 / -1350 Lab / Micro Data Result Diagrams: 08/16/20 06:21 08/16/20 06:21 Labs: Laboratory Results - last 24 hr 08/16/20 08/16/20 06:21 06:21 WBC 9.8 RBC 3.92 L Hgb 11.8 L Hct 36.6 L MCV 93.4 MCH 30.1 MCHC 32.2 RDW Std Deviation 51.9 H RDW Coeff of Jeremiah 14.9 H Plt Count 179 MPV 10.2 Immature Gran % (Auto) 0.500 Neut % (Auto) 81.6 H Lymph % (Auto) 4.2 L [place] % (Auto) 13.5 H Eos % (Auto) 0.1 Baso % (Auto) 0.1 Absolute Neuts (auto) 8.0 H Absolute Lymphs (auto) 0.41 L Nucleated RBC % 0 Differential Comment SCANNED Sodium 133 L Potassium 4.1 Chloride 103 Carbon Dioxide 16.0 L Anion Gap 14 BUN 76 H Creatinine 6.15 H Estim Creat Clear Calc 8.89 Est GFR (MDRD) Af Amer 11 L Est GFR (MDRD) Non-Af 9 L BUN/Creatinine Ratio 12.4 Glucose 123 H Calcium 8.1 L Micro: Microbiology 08/12/20 16:55 Urine, Catheterized Urine Culture - Final Pseudomonas putida Radiography Diagnostic Testing: Radiology Impression Chest X-Ray 08/15/20 19:50 IMPRESSION: Interval development of small right-sided pleural effusion. Right basilar patchy opacities, likely atelectasis. Aspiration or pneumonia not excluded. Mild pulmonary vascular congestion. No pneumothorax. Borderline cardiomegaly. Multilevel thoracic spondylosis. Electronically Signed: Nathaniel Saavedra MD at 20:44 EDT Tel , Service support , Physical Exam Const alert, oriented x3 and no apparent distress HEENT normocephalic and moist oral mucous membranes Eyes PERRL, EOMs intact bilaterally and conjunctivae normal Neck supple and no JVD Resp normal respiratory effort, no retractions and no use of accessory muscles Auscultation: wheezes scattered wheezes; Negative for crackles, rales or rhonchi Cardio regular rate, regular rhythm, S1 normal heart sound, S2 normal heart sound and no murmurs GI soft to palpation, non-tender and non-distended; Negative for hepatosplenomegaly GI Narrative: Ostomy present Extremity no clubbing, cyanosis or edema Skin no rashes or lesions noted Neuro no focal motor deficits and no sensory deficits noted Psych affect normal Appearance: appropriate Assessment & Plan Assessment/Plan (1) Acute kidney injury: (2) Stage 3a chronic kidney disease: (3) UTI (urinary tract infection): (4) Renal calculi: PLAN: 1. HENOK on CKD 3a with likely ATN/right ureteral stone -Has been started on tolterodine last week for overactive bladder, this has been discontinued -Slight worsening in his creatinine, will continue with IV fluids. Encourage ambulation and incentive spirometry. If necessary can start with duo nebs -Continue with IV fluids and will continue to monitor his urine output, as well as creatinine -FENa of 5.9 consistent with postobstructive uropathy -Continue with Sandoval, will consult urology for evaluation of possible obstruction secondary to necrosis on the right. In discussion with nephrology did not feel that the left kidney was contributing much to his renal function and therefore booked for an evaluation and possible nephrostomy tube placement if necessary based on urology's evaluation. -Continue to hold nephrotoxic agents -He does have slight wheezing today on exam 2. HTN -Blood pressure stable -Can continue with his calcium channel michi DVT: Heparin Charges/Coding Visit Charges Inpatient E&M: 32419 Subs Hosp L2
[2020-08-16] MEDS: Albuterol 2.5 MG/3 ML VIAL.NEB. INHALATION ×3 (15:01→20:18)
--- NOTE | 2020-08-16 19:01 | NURSING ---
1850 pt up in room and walked to window. 02 2L NC on, pt with good cough, wheezes continued, crackles in both bases. PRN resp treatment started. pt back to bed. pox 96%. Lin Darden RN
[2020-08-16] MEDS: MELATONIN 3 MG TABLET PO (20:58)
[2020-08-16] MEDS: Acetaminophen 325 MG Tablet 650 MG PO (20:58)
--- NOTE | 2020-08-16 21:16 | NURSING ---
Pt denies having COVID vaccination.
--- NOTE | 2020-08-16 21:57 | PCM.PN.REN ---
Subjective Subjective no new complaints, wheezing Objective Data Objective Data Vital Signs: Vital Signs Temp Pulse Resp BP Pulse Ox 97 F L 83 20 H 146/85 H 99 08/16/20 21:09 08/16/20 21:09 08/16/20 21:09 08/16/20 21:09 08/16/20 21:09 Oxygen Flow Rate (L/min) 2 Oxygen Delivery Method Nasal Cannula Weight: 71.6 kg Body Mass Index (BMI) 22.6 Intake & Output: Intake and Output for Last 24 Hours 08/14/20 08/15/20 08/16/20 23:59 23:59 23:59 Intake Total 4174.99 / 4174.99 3365 / 3365 1310 / 1310 Output Total 1750 / 1750 1600 / 1600 2450 / 2450 Balance 2424.99 / 2424.99 1765 / 1765 -1140 / -1140 Lab / Micro Data Result Diagrams: 08/16/20 06:21 08/16/20 06:21 Labs: Laboratory Results - last 24 hr 08/16/20 08/16/20 06:21 06:21 WBC 9.8 RBC 3.92 L Hgb 11.8 L Hct 36.6 L MCV 93.4 MCH 30.1 MCHC 32.2 RDW Std Deviation 51.9 H RDW Coeff of Jeremiah 14.9 H Plt Count 179 MPV 10.2 Immature Gran % (Auto) 0.500 Neut % (Auto) 81.6 H Lymph % (Auto) 4.2 L [place] % (Auto) 13.5 H Eos % (Auto) 0.1 Baso % (Auto) 0.1 Absolute Neuts (auto) 8.0 H Absolute Lymphs (auto) 0.41 L Nucleated RBC % 0 Differential Comment SCANNED Sodium 133 L Potassium 4.1 Chloride 103 Carbon Dioxide 16.0 L Anion Gap 14 BUN 76 H Creatinine 6.15 H Estim Creat Clear Calc 8.89 Est GFR (MDRD) Af Amer 11 L Est GFR (MDRD) Non-Af 9 L BUN/Creatinine Ratio 12.4 Glucose 123 H Calcium 8.1 L Micro: Microbiology 08/12/20 16:55 Urine, Catheterized Urine Culture - Final Pseudomonas putida Physical Exam Narrative General: Alert oriented x3 in no apparent distress HEENT: Normocephalic, atraumatic. Mucous membrane moist without erythema. Hearing is intact Neck: Supple, no JVD Heart: Normal S1, S2 no rubs or murmurs Lungs: Expiratory wheeze diffusely. No crackles Abdomen: Normal active bowel sound, soft, nontender to palpation. No guarding or rebound Extremity: No edema. There is no clubbing or cyanosis Neurological: No focal neurologic deficit Psychiatric: Normal mood and affect Skin: No rash, skin is warm and dry Const alert and oriented x3 HEENT normocephalic Resp clear to auscultation bilaterally Bladder / Kidney Exam: catheter in place Extremity no clubbing, cyanosis or edema Assessment & Plan Assessment/Plan (1) HENOK (acute kidney injury): PLAN: HENOK is secondary to obstructive uropathy. Patient has a right ureteral kidney stone which is obstructing in the setting of nonfunctioning left kidney. He is status post right ureteral stent. Creatinine 1.5 mg/dL on 05/12/2020. Creatinine on admission (08/11/2020 3.6 mg/dL), creatinine peaked at 7.28 mg/dL on 08/13/2020 cr remains high. likely still obstructive. repeat renal US. if hydronephrotic will need nephrostomy dc fluids dw Dr Christianson (2) Stage 3a chronic kidney disease: PLAN: Baseline serum creatinine is around 1.5 to 1.6 mg/dL. The patient has small left kidney which is likely nonfunctioning. (3) Renal calculi: PLAN: The patient has right ureteral stone which is obstructing on CT scan. He is status post cystoscopy and right ureteral stent placement by Dr. Mariee. (4) Hypertension: QUALIFIERS: Hypertension type: primary hypertension Qualified Code(s): I10 - Essential (primary) hypertension PLAN: BP is acceptable. Continue current dose of verapamil.
[2020-08-17] VITALS (14 sets, daily range): BP systolic 108–148; BP diastolic 50–70; PULSE 62–122; RESP 14–24; TEMP 36.1–36.9; O2SAT 68–100
[2020-08-17] MEDS: Albuterol 2.5 MG/3 ML VIAL.NEB. INHALATION ×3 (01:27→19:24)
[2020-08-17] MEDS: Menthol/Lanolin/Calamine/Znox 113 GM Tube 1 APPLIC TOPICAL ×3 (05:00→20:25)
--- NOTE | 2020-08-17 06:00 | EKG12_ITS ---
Test Reason : PREOP Blood Pressure : / mmHG Vent. Rate : 073 BPM Atrial Rate : 073 BPM P-R Int : 184 ms QRS Dur : 100 ms QT Int : 386 ms P-R-T Axes : 040 -34 060 degrees QTc Int : 425 ms Normal sinus rhythm Left axis deviation Abnormal ECG When compared with ECG of 30-DEC-2019 01:00, Premature ventricular complexes are no longer Present Confirmed by JEANNA VILLARREAL, JUDY ([id number]), map editor ODESSA MARCELINO ([id number]) on 08/18/2020 8:53:26 AM Referred By: TALAT Confirmed By:JUDY MEEKS MD
[2020-08-17 06:06] LABS: Hematocrit 34.3 % (40-54); Hemoglobin 10.9 g/dL (13.0-16.5); Mean Corp Hgb Conc 31.8 g/dL (32-36); Mean Corpuscular Hgb 29.8 pg (27.0-32.0); Mean Corpuscular Volume 93.7 fL (80-94); Mean Platelet Vol. 9.8 fl (6.2-12.0); Platelet Count 173 K/mm3 (150-450); RBC Distribution Width CV 15.1 % (11.6-14.6); RBC Distribution Width SD 52.5 fl (35.1-43.9); Red Blood Count 3.66 M/mm3 (4.6-6.2); White Blood Count 10.2 K/mm3 (4.4-11.0)
[2020-08-17 06:15] LABS: Partial Thromboplast Time 31.1 Seconds (24.1-36.2)
[2020-08-17 06:33] LABS: Anion Gap 12 (5-15); BUN 88 mg/dL (7-18); BUN/Creat Ratio 12.6 RATIO (10-20); Chloride 105 mmol/L (98-107); Creatinine, Serum 6.97 mg/dL (0.70-1.30); EST Glomerular Filtration Rate 8 mL/min (>60); Est Glom Filt Rate - Afr Amer 10 mL/min (>60); Estimated Creatinine Clearance 7.85 ml/min; Glucose 130 mg/dL (74-106); Potassium 4.3 mmol/L (3.5-5.1); Sodium Level 131 mmol/L (136-145)
[2020-08-17 09:15] LABS: International Normalized Ratio 1.1; Prothrombin Time (Protime)PT. 13.9 SECONDS (11.7-14.9)
--- NOTE | 2020-08-17 09:58 | PN.RENAL_ITS ---
Subjective Subjective Following for acute kidney injury on chronic kidney disease. The patient denies increasing shortness of breath although he seems to be more short of breath per his RN. The patient denies chest pain, nausea, or vomiting. There has been no increasing edema. Objective Data Objective Data Vital Signs: Vital Signs Temp Pulse Resp BP Pulse Ox 97.9 F 73 20 H 120/56 L 98 08/17/20 08:29 08/17/20 08:29 08/17/20 08:29 08/17/20 08:29 08/17/20 08:29 Oxygen Flow Rate (L/min) 4 Oxygen Delivery Method Nasal Cannula Weight: 71.6 kg Body Mass Index (BMI) 22.6 Intake & Output: Intake and Output for Last 24 Hours 08/15/20 08/16/20 08/17/20 23:59 23:59 23:59 Intake Total 3365 / 3365 1310 / 1310 Output Total 1600 / 1600 3125 / 3125 300 / 300 Balance 1765 / 1765 -1815 / -1815 -300 / -300 Lab / Micro Data Result Diagrams: 08/17/20 06:00 08/17/20 06:00 Labs: Laboratory Results - last 24 hr 08/17/20 06:00: Sodium 131 L, Potassium 4.3, Chloride 105, Carbon Dioxide 14.0 L , Anion Gap 12, BUN 88 H, Creatinine 6.97 H, Estim Creat Clear Calc 7.85, Est GFR (MDRD) Af Amer 10 L, Est GFR (MDRD) Non-Af 8 L, BUN/Creatinine Ratio 12.6, Glucose 130 H, Calcium 8.0 L 08/17/20 06:00: WBC 10.2, RBC 3.66 L, Hgb 10.9 L, Hct 34.3 L, MCV 93.7, MCH 29.8, MCHC 31.8 L, RDW Std Deviation 52.5 H, RDW Coeff of Jeremiah 15.1 H, Plt Count 173, MPV 9.8 08/17/20 06:00: APTT 31.1 08/17/20 06:00: PT 13.9, INR 1.1 Micro: Microbiology 08/12/20 16:55 Urine, Catheterized Urine Culture - Final Pseudomonas putida Physical Exam Narrative General: Alert oriented x3 in no apparent distress Heart: Normal S1, S2 no rubs or murmurs Lungs: Decreased breath sound at bases. Abdomen: Normal active bowel sound, soft, nontender to palpation. No guarding or rebound. Ostomy intact. Extremity: No edema. There is no clubbing or cyanosis Assessment & Plan Assessment/Plan (1) HENOK (acute kidney injury): PLAN: HENOK is secondary to obstructive uropathy. Patient has a right ureteral kidney stone which is obstructing in the setting of nonfunctioning left kidney. Creatinine 1.5 mg/dL on 05/12/2020. Creatinine on admission (08/11/2020 3.6 mg/dL), creatinine increased to 7.28 mg/dL on 08/13/2020. Ureteral stent was placed on 08/13/2020. There was some initial improvement after ureteral stent placement. However, serum creatinine has continued to increase again over the last 48 hours. De spite adequate urine output, serum creatinine has increased from 6.08 mg/dL on 08/15/2020 up to 6.97 mg/dL today. Plan is for right nephrostomy tube placement today. If there is no significant improvement with right nephrostomy tube, the patient understands that he will need dialysis. dw Dr Christianson (2) Stage 3a chronic kidney disease: PLAN: Baseline serum creatinine is around 1.5 to 1.6 mg/dL. The patient has small left kidney which is likely nonfunctioning. (3) Renal calculi: PLAN: The patient has right ureteral stone which is obstructing on CT scan. He is status post cystoscopy and right ureteral stent placement by Dr. Mariee on 08/13/2020. (4) Hypertension: QUALIFIERS: Hypertension type: primary hypertension Qualified Code(s): I10 - Essential (primary) hypertension PLAN: BP is acceptable. Continue current dose of verapamil.
[2020-08-17] MEDS: Verapamil SR 180 MG CAPSULE PO (10:04)
--- NOTE | 2020-08-17 10:58 | CT_ITS ---
STUDY: CT ABDOMEN WITHOUT CONTRAST REASON FOR EXAM: Male, 85 years old. Possible right nephrostomy tube placement. RADIATION DOSAGE (If Supplied By Facility): CTDIvol = ( 12.19 ) mGy, DLP = ( 232.55 ) mGycm TECHNIQUE: Transaxial images were obtained without intravenous contrast, and oral contrast. Sagittal and coronal images were reconstructed. Individualized dose optimization techniques were used for this CT. COMPARISON: Comparison is made with prior examination of 08/13/2020. FINDINGS: Since prior study, a right-sided double-J stent catheter has been placed. The proximal tip is in the upper pole calyx of the right kidney. There has been mild improvement in the right hydronephrosis. CT/Abdomen without IV Contrast IMPRESSION: Status post right double J stent catheter placement. The proximal tip is in the upper pole calyx of the right kidney. Electronically Signed: Morgan Alejandra MD at 14:15 EDT , Service support ,
[2020-08-17] MEDS: Furosemide 100 MG/10 ML Vial 60 MG IV (11:28)
[2020-08-17] MEDS: 0.9% Saline Lock 10 ML Syringe IV ×2 (11:30→21:25)
--- NOTE | 2020-08-17 12:06 | PN.HOSP_ITS ---
Subjective Subjective Doing well, no issues overnight. He will need a nephrostomy tube placed as his creatinine continues to rise and his output is not consistent with a functioning stent. Objective Data Objective Data Vital Signs: Vital Signs Temp Pulse Resp BP Pulse Ox 98.4 F 70 18 108/51 L 97 08/17/20 11:27 08/17/20 11:27 08/17/20 11:27 08/17/20 11:27 08/17/20 11:27 Oxygen Flow Rate (L/min) 4 Oxygen Delivery Method Nasal Cannula Weight: 157 lb 13.616 oz Body Mass Index (BMI) 22.6 Intake & Output: Intake and Output for Last 24 Hours 08/16/20 08/17/20 08/18/20 03:59 03:59 03:59 Intake Total 3865 / 3865 810 / 810 Output Total 2400 / 2400 2325 / 2325 300 / 300 Balance 1465 / 1465 -1515 / -1515 -300 / -300 Lab / Micro Data Result Diagrams: 08/17/20 06:00 08/17/20 06:00 Labs: Laboratory Results - last 24 hr 08/17/20 06:00: Sodium 131 L, Potassium 4.3, Chloride 105, Carbon Dioxide 14.0 L , Anion Gap 12, BUN 88 H, Creatinine 6.97 H, Estim Creat Clear Calc 7.85, Est GFR (MDRD) Af Amer 10 L, Est GFR (MDRD) Non-Af 8 L, BUN/Creatinine Ratio 12.6, Glucose 130 H, Calcium 8.0 L 08/17/20 06:00: WBC 10.2, RBC 3.66 L, Hgb 10.9 L, Hct 34.3 L, MCV 93.7, MCH 29.8, MCHC 31.8 L, RDW Std Deviation 52.5 H, RDW Coeff of Jeremiah 15.1 H, Plt Count 173, MPV 9.8 08/17/20 06:00: APTT 31.1 08/17/20 06:00: PT 13.9, INR 1.1 Micro: Microbiology 08/12/20 16:55 Urine, Catheterized Urine Culture - Final Pseudomonas putida Physical Exam Const alert, oriented x3 and no apparent distress HEENT normocephalic and moist oral mucous membranes Eyes PERRL, EOMs intact bilaterally and conjunctivae normal Neck supple and no JVD Resp normal respiratory effort, no retractions and no use of accessory muscles Auscultation: wheezes scattered wheezes; Negative for crackles, rales or rhonchi Cardio regular rate, regular rhythm, S1 normal heart sound, S2 normal heart sound and no murmurs GI soft to palpation, non-tender and non-distended; Negative for hepatosplenomegaly GI Narrative: Ostomy present Extremity no clubbing, cyanosis or edema Skin no rashes or lesions noted Neuro no focal motor deficits and no sensory deficits noted Psych affect normal Appearance: appropriate Assessment & Plan Assessment/Plan (1) Acute kidney injury: (2) Stage 3a chronic kidney disease: (3) UTI (urinary tract infection): (4) Renal calculi: PLAN: 1. HENOK on CKD 3a with likely ATN/right ureteral stone -Has been started on tolterodine last week for overactive bladder, this has been discontinued -Slight worsening in his creatinine, will continue with IV fluids. Encourage ambulation and incentive spirometry. If necessary can start with duo nebs -We will hold his IV fluids as well as holding Lasix. Plan for nephrostomy tube when able -FENa of 5.9 consistent with postobstructive uropathy -Continue with Sandoval, will consult urology for evaluation of possible obstruction secondary to necrosis on the right. In discussion with nephrology did not feel that the left kidney was contributing much to his renal function and therefore booked for an evaluation and possible nephrostomy tube placement if necessary based on urology's evaluation. -Continue to hold nephrotoxic agents 2. HTN -Blood pressure stable -Can continue with his calcium channel michi DVT: Heparin Charges/Coding Visit Charges Inpatient E&M: 02136 Subs Hosp L2
[2020-08-17] MEDS: Midazolam 2 MG/2 ML Syringe IV (13:03)
[2020-08-17] MEDS: fentaNYL 100 MCG/2 ML Ampul IV (13:04)
[2020-08-17] MEDS: Heparin Injection (Vial) 5,000 UNIT/ML VIAL 5000 UNIT SC (21:27)
[2020-08-17] MEDS: Acetaminophen 325 MG Tablet 650 MG PO (23:17)
[2020-08-18] VITALS (12 sets, daily range): BP systolic 115–116; BP diastolic 50–67; PULSE 70–84; RESP 14–20; TEMP 36.4–36.9; O2SAT 95–100
[2020-08-18] MEDS: Albuterol 2.5 MG/3 ML VIAL.NEB. INHALATION ×4 (01:15→19:52)
[2020-08-18] MEDS: Menthol/Lanolin/Calamine/Znox 113 GM Tube 1 APPLIC TOPICAL ×3 (06:39→19:51)
[2020-08-18 07:30] LABS: Absolute Neutrophil Count 10.3 X10^3/uL (2.0-7.7); Basophil# 0.03 X10^3/uL; Basophil% 0.2 % (0-1); Eosinophil# 0.02 X10^3/uL; Eosinophils% 0.2 % (0-5); Hematocrit 36.3 % (40-54); Hemoglobin 11.2 g/dL (13.0-16.5); Mean Corp Hgb Conc 30.9 g/dL (32-36); Mean Corpuscular Hgb 29.5 pg (27.0-32.0); Mean Corpuscular Volume 95.5 fL (80-94); Mean Platelet Vol. 10.1 fl (6.2-12.0); Monocyte# 0.91 X10^3/uL; Monocyte% 7.5 % (0-10); NRBC Flagged by Analyzer 0 % (0-5); Neutrophil # 10.31 X10^3/uL (2.7-7.7); Neutrophil % 85.4 % (47-70); POSITIVE DIFFERENTIAL YES; Platelet Count 250 K/mm3 (150-450); RBC Distribution Width CV 15.4 % (11.6-14.6); RBC Distribution Width SD 54.6 fl (35.1-43.9); White Blood Count 12.1 K/mm3 (4.4-11.0)
[2020-08-18 07:40] LABS: Differential Indicated SCAN CRITERIA MET
[2020-08-18] MEDS: Allopurinol 100 MG Tablet PO (07:51)
[2020-08-18] MEDS: Aspirin E.C. 81 MG Tablet PO (07:51)
[2020-08-18 07:54] LABS: Albumin, Serum 2.4 g/dL (3.2-5.0); Anion Gap 13 (5-15); BUN 102 mg/dL (7-18); BUN/Creat Ratio 13.3 RATIO (10-20); Calcium,Total 8.3 mg/dL (8.5-10.1); Chloride 104 mmol/L (98-107); Creatinine, Serum 7.66 mg/dL (0.70-1.30); EST Glomerular Filtration Rate 7 mL/min (>60); Est Glom Filt Rate - Afr Amer 9 mL/min (>60); Estimated Creatinine Clearance 7.14 ml/min; Glucose 102 mg/dL (74-106); Potassium 4.8 mmol/L (3.5-5.1); Sodium Level 133 mmol/L (136-145)
[2020-08-18] MEDS: Heparin Injection (Vial) 5,000 UNIT/ML VIAL 5000 UNIT SC ×2 (08:43→19:52)
[2020-08-18] MEDS: Verapamil SR 180 MG CAPSULE PO (08:43)
[2020-08-18] MEDS: Acetaminophen 325 MG Tablet 650 MG PO (08:47)
--- NOTE | 2020-08-18 10:07 | PCM.CONS.GEN ---
Assessment & Plan Assessment/Plan (1) HENOK (acute kidney injury): PLAN: I have discussed this patient in conjunction with Dr. Rios. Dr. Rios will plan to perform a right chest tunneled dialysis catheter placement possible left chest. Procedure details, risks and benefits have been discussed with the patient. Post-operative CXR was discussed with the patient. Patient has had the opportunity to ask and have questions answered. Patient verbally understands and agrees with the plan. We will hold his Heparin tomorrow morning. NPO after midnight. Operating time permitted for tomorrow at 12, noon. Thank you for allowing us to participate in this patient's care. HPI Consult Data Date of Consult: 08/18/20 HPI Narrative HPI Narrative: ANURADHA NOLAN, is a 85 M who presents to the ED due to nausea s/p ureteral stent placement for kidney stones. Patient was also noted to have abdominal pain on presentation. He is a very poor historian. He is heard of hearing. He states he was unable to pee and medication he was placed on by his urologist was working to well. He had a urostomy tube placed yesterday. His creatinine has unfortunately continued to increase. He has not been following with a dyer and washer as an outpatient. He has never been placed on dialysis. He denies cardiac history, cardiac stents, previous myocardial infarction. he denies current chest pain. He notes increased shortness of breath. He denies being on oxygen at home. He notes a history of OA and macular degeneration. He also has a history of ulcerative colitis s/p pancolectomy with ileostomy placement in 1998. Patient denies any concerns with the ileostomy. He denies any previous complications with anesthesia. He lives at home with his . COUNTS INCLUDE 234 BEDS AT THE [facility] Medical History (Updated 08/13/20 @ 17:50 by Katelyn Mera) Arthritis Colitis HTN (hypertension) Kidney stones Home Medications verapamil 180 mg PO DAILY 05/30/14 [History Last Taken 08/11/20] aspirin 81 mg PO DAILY 10/16/18 [History Last Taken 08/11/20] allopurinol 100 mg PO DAILYCM #90 tab 01/03/20 [Rx Last Taken 08/11/20] tolterodine 4 mg PO DAILY 08/11/20 [History Last Taken 08/11/20] Allergy/AdvReac Type Severity Reaction Status Date / Time allopurinol AdvReac Chest Verified 08/11/20 17:57 tightness ciprofloxacin [From Cipro] AdvReac didn't Verified 08/11/20 17:57 know spouse Family History (Updated 08/11/20 @ 20:[address] Taurus Dumont MD) Father Heart disease Surgical History H/O colectomy History of cataract surgery History of herniorrhaphy History of hip surgery Social History (Updated 08/11/20 @ 20:[address] Taurus Dumont MD) Smoking Status: Never smoker ROS Constitutional Constitutional: Reports systems reviewed and no addt'l complaints, except as documented Eyes Eyes: Reports systems reviewed and no addt'l complaints, except as documented ENT HEENT: Reports systems reviewed and no addt'l complaints, except as documented Cardiovascular Cardiovascular: Reports systems reviewed and no addt'l complaints, except as documented Respiratory/Chest Respiratory/Chest: Reports systems reviewed and no addt'l complaints, except as documented Gastrointestinal Gastrointestinal: Reports systems reviewed and no addt'l complaints, except as documented Genitourinary Genitourinary: Reports systems reviewed and no addt'l complaints, except as documented Musculoskeletal Musculoskeletal: Reports systems reviewed and no addt'l complaints, except as documented Integumentary Integumentary: Reports systems reviewed and no addt'l complaints, except as documented Neurologic Neurologic: Reports systems reviewed and no addt'l complaints, except as documented Psychiatric Psychiatric: Reports systems reviewed and no addt'l complaints, except as documented Endocrine Endocrinology: Reports systems reviewed and no addt'l complaints, except as documented Hematologic/Lymphatic Hematologic/Lymphatic: Reports systems reviewed and no addt'l complaints, except as documented Allergic/Immunologic Allergic/Immunologic: Reports systems reviewed and no addt'l complaints, except as documented Physical Exam Const alert and oriented x3 Constitutional Narrative: Oxygen via nasal canula General Appearance: disheveled and frail Nutritional Appearance: thin HEENT normocephalic Eyes PERRL and EOMs intact bilaterally Neck full ROM Chest inspection of chest normal Resp normal respiratory effort, normal air movement and clear to auscultation bilaterally Cardio regular rate and regular rhythm GI normal to inspection, nondistended, normoactive bowel sounds GI Narrative: ileostomy noted. urostomy tube present with thick yellowish fluid within the tube. no CVA tenderness Bladder / Kidney Exam: catheter in place Back/Spine no CVA tenderness Extremity Extremity Narrative: Left upper extremity swelling noted. Skin no rashes or lesions noted Neuro oriented x3 and CN's II-XII intact bilaterally Psych Psych Narrative: Hard of hearing Appearance: unkempt Speech: normal speech Lab / Micro Data Result Diagrams: 08/18/20 06:54 08/18/20 06:54 Labs: Laboratory Results - last 24 hr 08/18/20 06:54: WBC 12.1 H, RBC 3.80 L, Hgb 11.2 L, Hct 36.3 L, MCV 95.5 H, MCH 29.5, MCHC 30.9 L, RDW Std Deviation 54.6 H, RDW Coeff of Jeremiah 15.4 H, Plt Count 250, MPV 10.1, Immature Gran % (Auto) 1.700 H, Neut % (Auto) 85.4 H, Lymph % (Auto) 5.0 L, [place] % (Auto) 7.5, Eos % (Auto) 0.2, Baso % (Auto) 0.2, Absolute Neuts (auto) 10.3 H, Absolute Lymphs (auto) 0.60 L, Nucleated RBC % 0, Differential Comment COMMENT 08/18/20 06:54: Sodium 133 L, Potassium 4.8, Chloride 104, Carbon Dioxide 16.0 L, Anion Gap 13, BUN 102 H*, Creatinine 7.66 H*, Estim Creat Clear Calc 7.14, Est GFR (MDRD) Af Amer 9 L, Est GFR (MDRD) Non-Af 7 L, BUN/Creatinine Ratio 13.3, Glucose 102, Calcium 8.3 L, Phosphorus 7.0 H, Albumin 2.4 L Radiology Impression Abdomen CT 08/17/20 10:58 IMPRESSION: Status post right double J stent catheter placement. The proximal tip is in the upper pole calyx of the right kidney. Electronically Signed: Morgan Alejandra MD at 14:15 EDT , Service support , Charges/Coding Visit Charges Office Visits / Consults: [id number] IP Consult L3
--- NOTE | 2020-08-18 10:30 | NURSING ---
Was consulted on pt for ostomy. stoma present to the RLQ. appliance is intact. pt states she does not want the appliance changed at this time. will monitor.
--- NOTE | 2020-08-18 14:55 | PCM.PN.REN ---
Subjective Subjective Following for acute kidney injury on chronic kidney disease. The patient denies chest pain, shortness of breath at rest, nausea, or edema. Appetite has not been too bad either. Objective Data Objective Data Vital Signs: Vital Signs Temp Pulse Resp BP Pulse Ox 97.8 F 80 18 116/52 L 95 08/18/20 14:19 08/18/20 14:23 08/18/20 14:19 08/18/20 14:19 08/18/20 14:19 Oxygen Flow Rate (L/min) [6] 15 Oxygen Flow Rate (L/min) [5] 15 Oxygen Flow Rate (L/min) [4] 15 Oxygen Flow Rate (L/min) [3] 15 Oxygen Flow Rate (L/min) [2] 15 Oxygen Flow Rate (L/min) [1 ( 15 Initial Baseline)] Oxygen Flow Rate (L/min) 2 Oxygen Delivery Method [6] Non-Rebreather Oxygen Delivery Method [5] Non-Rebreather Oxygen Delivery Method [4] Non-Rebreather Oxygen Delivery Method [3] Non-Rebreather Oxygen Delivery Method [2] Non-Rebreather Oxygen Delivery Method [1 ( Non-Rebreather Initial Baseline)] Oxygen Delivery Method Room Air Weight: 71.6 kg Body Mass Index (BMI) 22.6 Intake & Output: Intake and Output for Last 24 Hours 08/16/20 08/17/20 08/18/20 23:59 23:59 23:59 Intake Total 1310 / 1310 283.75 / 283.75 550 / 550 Output Total 3125 / 3125 950 / 950 425 / 425 Balance -1815 / -1815 -666.25 / -666.25 125 / 125 Lab / Micro Data Result Diagrams: 08/18/20 06:54 08/18/20 06:54 Labs: Laboratory Results - last 24 hr 08/18/20 06:54: WBC 12.1 H, RBC 3.80 L, Hgb 11.2 L, Hct 36.3 L, MCV 95.5 H, MCH 29.5, MCHC 30.9 L, RDW Std Deviation 54.6 H, RDW Coeff of Jeremiah 15.4 H, Plt Count 250, MPV 10.1, Immature Gran % (Auto) 1.700 H, Neut % (Auto) 85.4 H, Lymph % (Auto) 5.0 L, [place] % (Auto) 7.5, Eos % (Auto) 0.2, Baso % (Auto) 0.2, Absolute Neuts (auto) 10.3 H, Absolute Lymphs (auto) 0.60 L, Nucleated RBC % 0, Differential Comment COMMENT 08/18/20 06:54: Sodium 133 L, Potassium 4.8, Chloride 104, Carbon Dioxide 16.0 L, Anion Gap 13, BUN 102 H*, Creatinine 7.66 H*, Estim Creat Clear Calc 7.14, Est GFR (MDRD) Af Amer 9 L, Est GFR (MDRD) Non-Af 7 L, BUN/Creatinine Ratio 13.3, Glucose 102, Calcium 8.3 L, Phosphorus 7.0 H, Albumin 2.4 L Micro: Microbiology 08/18/20 12:45 Mucosa - Nose SARS-CoV-2 Antigen (Rapid) - Final 08/12/20 16:55 Urine, Catheterized Urine Culture - Final Pseudomonas putida Physical Exam Narrative General: Alert oriented x3 in no apparent distress Heart: Normal S1, S2 no rubs or murmurs Lungs: Some expiratory wheezing, decreased breath sound at bases. Abdomen: Normal active bowel sound, soft, nontender to palpation. No guarding or rebound. Ostomy intact. Extremity: No edema. There is no clubbing or cyanosis Assessment & Plan Assessment/Plan (1) HENOK (acute kidney injury): PLAN: HENOK is secondary to obstructive uropathy. Patient has a right ureteral kidney stone which is obstructing in the setting of nonfunctioning left kidney. Creatinine 1.5 mg/dL on 05/12/2020. Creatinine on admission (08/11/2020 3.6 mg/dL), creatinine increased to 7.28 mg/dL on 08/13/2020. Ureteral stent was placed on 08/13/2020. There was some initial improvement after ureteral stent placement. However, serum creatinine has continued to increase again over the last 72 hours. Despite adequate urine output, serum creatinine has increased from 6.08 mg/dL on 08/15/2020 up to 7.66 mg/dL today. The initial plan was to place nephrostomy tube. However, CT scan done yesterday showed ureteral stent to be in good position with mild improvement of hydronephrosis. Therefore, decision was made not to proceed with nephrostomy tube placement. Since renal function continues to worsen, I will proceed with hemodialysis. Surgery has been consulted for tunneled hemodialysis catheter. We will start dialysis after tunneled dialysis catheter is placed. We will also start the process of looking for outpatient dialysis unit near his home in [place]. He will likely need to go to either [place] or [place] for dialysis. (2) Stage 3a chronic kidney disease: PLAN: Baseline serum creatinine is around 1.5 to 1.6 mg/dL. The patient has small left kidney which is likely nonfunctioning. As mentioned above, HENOK is likely due to obstruction of right kidney. However, despite placement of right ureteral stent, kidney function continues to decline. Imaging study yesterday does not suggest extrinsic compression of ureter. Ureteral stent appears to be in good position per CT scan interpretation. Therefore, we will proceed with hemodialysis once vascular access is established. (3) Renal calculi: PLAN: The patient has right ureteral stone which is obstructing on CT scan. He is status post cystoscopy and right ureteral stent placement by Dr. Mariee on 08/13/2020. (4) Hypertension: QUALIFIERS: Hypertension type: primary hypertension Qualified Code(s): I10 - Essential (primary) hypertension PLAN: BP is acceptable. Continue current dose of verapamil.
--- NOTE | 2020-08-18 19:39 | PN.HOSP_ITS ---
Subjective Subjective Patient was seen and examined today, I talked with nephrology about his care this morning, nephrology requested that general surgery be consulted for insertion of tunneled dialysis catheter, I contacted Dr. Rios and he was unable to place the catheter today due to scheduling conflicts, this catheter will be placed tomorrow. I discussed this with the patient and I also told him he would need dialysis. Patient has no complaints of any chest discomfort or shortness of breath to this examiner. Objective Data Objective Data Vital Signs: Vital Signs Temp Pulse Resp BP Pulse Ox 97.8 F 80 18 116/52 L 95 08/18/20 14:19 08/18/20 14:23 08/18/20 14:19 08/18/20 14:19 08/18/20 14:19 Oxygen Flow Rate (L/min) [6] 15 Oxygen Flow Rate (L/min) [5] 15 Oxygen Flow Rate (L/min) [4] 15 Oxygen Flow Rate (L/min) [3] 15 Oxygen Flow Rate (L/min) [2] 15 Oxygen Flow Rate (L/min) [1 ( 15 Initial Baseline)] Oxygen Flow Rate (L/min) 2 Oxygen Delivery Method [6] Non-Rebreather Oxygen Delivery Method [5] Non-Rebreather Oxygen Delivery Method [4] Non-Rebreather Oxygen Delivery Method [3] Non-Rebreather Oxygen Delivery Method [2] Non-Rebreather Oxygen Delivery Method [1 ( Non-Rebreather Initial Baseline)] Oxygen Delivery Method Room Air Weight: 71.6 kg Body Mass Index (BMI) 22.6 Intake & Output: Intake and Output for Last 24 Hours 08/16/20 08/17/20 08/18/20 23:59 23:59 23:59 Intake Total 1310 / 1310 283.75 / 283.75 1000 / 1000 Output Total 3125 / 3125 950 / 950 475 / 475 Balance -1815 / -1815 -666.25 / -666.25 525 / 525 Lab / Micro Data Result Diagrams: 08/19/20 05:58 08/19/20 05:58 Labs: Laboratory Results - last 24 hr 08/18/20 06:54: WBC 12.1 H, RBC 3.80 L, Hgb 11.2 L, Hct 36.3 L, MCV 95.5 H, MCH 29.5, MCHC 30.9 L, RDW Std Deviation 54.6 H, RDW Coeff of Jeremiah 15.4 H, Plt Count 250, MPV 10.1, Immature Gran % (Auto) 1.700 H, Neut % (Auto) 85.4 H, Lymph % (Auto) 5.0 L, [place] % (Auto) 7.5, Eos % (Auto) 0.2, Baso % (Auto) 0.2, Absolute Neuts (auto) 10.3 H, Absolute Lymphs (auto) 0.60 L, Nucleated RBC % 0, Differential Comment COMMENT 08/18/20 06:54: Sodium 133 L, Potassium 4.8, Chloride 104, Carbon Dioxide 16.0 L , Anion Gap 13, BUN 102 H*, Creatinine 7.66 H*, Estim Creat Clear Calc 7.14, Est GFR (MDRD) Af Amer 9 L, Est GFR (MDRD) Non-Af 7 L, BUN/Creatinine Ratio 13.3, Glucose 102, Calcium 8.3 L, Phosphorus 7.0 H, Albumin 2.4 L Micro: Microbiology 08/18/20 12:45 Mucosa - Nose SARS-CoV-2 Antigen (Rapid) - Final 08/12/20 16:55 Urine, Catheterized Urine Culture - Final Pseudomonas putida Physical Exam Const alert and no apparent distress Constitutional Narrative: Patient exhibits some mild confusion at times but is able to answer simple questions appropriately HEENT head/scalp atraumatic, moist oral mucous membranes and oropharynx normal Head and Scalp: normocephalic Eyes PERRL, EOMs intact bilaterally and conjunctivae normal Neck no lymphadenopathy, supple and no JVD Resp normal respiratory effort, no retractions, no use of accessory muscles and clear to auscultation bilaterally Cardio regular rate, regular rhythm, S1 normal heart sound, S2 normal heart sound, no gallops and no clicks GI normal to inspection, nondistended, normoactive bowel sounds, soft to palpation, non-tender and non-distended Extremity normal to inspection and no clubbing, cyanosis or edema Neuro CN's II-XII intact bilaterally and no focal motor deficits Sensorium / Orientation: awake, alert and oriented to person Psych Psych Narrative: Patient does not appear agitated or anxious, his affect is flat Assessment & Plan Assessment/Plan (1) HENOK (acute kidney injury): PLAN: 1. Acute renal failure on an overlay of stage IIIa chronic kidney disease-again I talked with nephrology concerning patient's care, nephrology feels that the patient will need dialysis, I have contacted general surgery and they will place a tunneled dialysis catheter in the patient tomorrow. #2 essential hypertension #3 anemia of chronic kidney disease #4 mild encephalopathy probably secondary to metabolic reasons (? Uremia) #5 generalized debility-PT and OT are seeing the patient, he may need temporary placement in alf facility #6 Status post right ureteral stent placement for right ureteral stone postop day 6 #7 atrophic left kidney Charges/Coding Visit Charges Inpatient E&M: 79680 Subs Hosp L2
[2020-08-18] MEDS: Nystatin Powder 15gm Bottle 1 APPLIC TOPICAL (22:19)
[2020-08-19] VITALS (19 sets, daily range): BP systolic 103–138; BP diastolic 55–74; PULSE 68–87; RESP 16–106; TEMP 36.1–36.9; O2SAT 93–100; BMI 22.6
[2020-08-19] MEDS: Albuterol 2.5 MG/3 ML VIAL.NEB. INHALATION ×3 (01:51→19:25)
[2020-08-19] MEDS: Nystatin Powder 15gm Bottle 1 APPLIC TOPICAL ×3 (05:24→22:44)
[2020-08-19] MEDS: Menthol/Lanolin/Calamine/Znox 113 GM Tube 1 APPLIC TOPICAL ×3 (05:24→22:44)
[2020-08-19 06:06] LABS: Absolute Lymphocyte Count 0.51 X10^3/uL (0.83-4.51); Absolute Neutrophil Count 9.4 X10^3/uL (2.0-7.7); Basophil# 0.02 X10^3/uL; Basophil% 0.2 % (0-1); Eosinophil# 0.04 X10^3/uL; Eosinophils% 0.4 % (0-5); Hematocrit 31.6 % (40-54); Hemoglobin 10.3 g/dL (13.0-16.5); Lymphocyte # 0.51 X10^3/ul (0.83-4.51); Lymphocyte % 4.7 % (19-41); Mean Corp Hgb Conc 32.6 g/dL (32-36); Mean Corpuscular Hgb 30.4 pg (27.0-32.0); Mean Corpuscular Volume 93.2 fL (80-94); Mean Platelet Vol. 9.5 fl (6.2-12.0); Monocyte# 0.81 X10^3/uL; Monocyte% 7.4 % (0-10); NRBC Flagged by Analyzer 0 % (0-5); Neutrophil # 9.36 X10^3/uL (2.7-7.7); Neutrophil % 85.7 % (47-70); POSITIVE DIFFERENTIAL YES; Platelet Count 257 K/mm3 (150-450); RBC Distribution Width CV 14.9 % (11.6-14.6); RBC Distribution Width SD 51.3 fl (35.1-43.9); Red Blood Count 3.39 M/mm3 (4.6-6.2); White Blood Count 10.9 K/mm3 (4.4-11.0)
[2020-08-19 06:09] LABS: Differential Indicated SCAN CRITERIA MET
[2020-08-19 06:19] LABS: Partial Thromboplast Time 35.3 Seconds (24.1-36.2)
[2020-08-19 07:03] LABS: Anion Gap 9 (5-15); BUN 109 mg/dL (7-18); BUN/Creat Ratio 13.3 RATIO (10-20); Calcium,Total 8.2 mg/dL (8.5-10.1); Chloride 106 mmol/L (98-107); Creatinine, Serum 8.21 mg/dL (0.70-1.30); EST Glomerular Filtration Rate 7 mL/min (>60); Est Glom Filt Rate - Afr Amer 8 mL/min (>60); Estimated Creatinine Clearance 6.66 ml/min; Glucose 125 mg/dL (74-106); Potassium 4.4 mmol/L (3.5-5.1); Sodium Level 132 mmol/L (136-145)
--- NOTE | 2020-08-19 08:27 | NURSING ---
Pt allowed this nurse to change the ileostomy appliance today. patient very particular about how the appliance is changed. Pt wanted to use the supplies that his brought in. removed the ostomy appliance. stoma is beefy red and protruding. peristomal skin is intact. cleansed peristomal skin with warm water. pat dry. applied pts 1 piece [place] appliance with a small amount of stoma paste. clip applied. pt tolerated well. appliance date. reapplied pts ostomy belt per request.
[2020-08-19] MEDS: Verapamil SR 180 MG CAPSULE PO (09:16)
--- NOTE | 2020-08-19 09:43 | PCM.PN.REN ---
Subjective Subjective Following for acute kidney injury on chronic kidney disease. The patient denies chest pain, shortness of breath at rest, nausea, or edema. Appetite has not been too bad either. Objective Data Objective Data Vital Signs: Vital Signs Temp Pulse Resp BP Pulse Ox 97.9 F 83 18 132/74 H 94 08/19/20 03:15 08/19/20 07:15 08/19/20 07:15 08/19/20 03:15 08/19/20 07:15 Oxygen Flow Rate (L/min) [6] 15 Oxygen Flow Rate (L/min) [5] 15 Oxygen Flow Rate (L/min) [4] 15 Oxygen Flow Rate (L/min) [3] 15 Oxygen Flow Rate (L/min) [2] 15 Oxygen Flow Rate (L/min) [1 ( 15 Initial Baseline)] Oxygen Flow Rate (L/min) 2 Oxygen Delivery Method [6] Non-Rebreather Oxygen Delivery Method [5] Non-Rebreather Oxygen Delivery Method [4] Non-Rebreather Oxygen Delivery Method [3] Non-Rebreather Oxygen Delivery Method [2] Non-Rebreather Oxygen Delivery Method [1 ( Non-Rebreather Initial Baseline)] Oxygen Delivery Method Room Air Weight: 71.6 kg Body Mass Index (BMI) 22.6 Intake & Output: Intake and Output for Last 24 Hours 08/17/20 08/18/20 08/19/20 23:59 23:59 23:59 Intake Total 283.75 / 283.75 1120 / 1120 Output Total 950 / 950 575 / 575 350 / 350 Balance -666.25 / -666.25 545 / 545 -350 / -350 Lab / Micro Data Result Diagrams: 08/19/20 05:58 08/19/20 05:58 Labs: Laboratory Results - last 24 hr 08/19/20 05:58: WBC 10.9, RBC 3.39 L, Hgb 10.3 L, Hct 31.6 L, MCV 93.2, MCH 30.4, MCHC 32.6 D, RDW Std Deviation 51.3 H, RDW Coeff of Jeremiah 14.9 H, Plt Count 257, MPV 9.5, Immature Gran % (Auto) 1.600 H, Neut % (Auto) 85.7 H, Lymph % (Auto) 4.7 L, [place] % (Auto) 7.4, Eos % (Auto) 0.4, Baso % (Auto) 0.2, Absolute Neuts (auto) 9.4 H, Absolute Lymphs (auto) 0.51 L, Nucleated RBC % 0 08/19/20 05:58: Sodium 132 L, Potassium 4.4, Chloride 106, Carbon Dioxide 17.0 L, Anion Gap 9, BUN 109 H*, Creatinine 8.21 H*, Estim Creat Clear Calc 6.66, Est GFR (MDRD) Af Amer 8 L, Est GFR (MDRD) Non-Af 7 L, BUN/Creatinine Ratio 13.3, Glucose 125 H, Calcium 8.2 L 08/19/20 05:58: APTT 35.3 Micro: Microbiology 08/18/20 12:45 Mucosa - Nose SARS-CoV-2 Antigen (Rapid) - Final 08/12/20 16:55 Urine, Catheterized Urine Culture - Final Pseudomonas putida Physical Exam Narrative General: Alert oriented x3 in no apparent distress Heart: Normal S1, S2 no rubs or murmurs Lungs: Some expiratory wheezing, decreased breath sound at bases. Abdomen: Normal active bowel sound, soft, nontender to palpation. No guarding or rebound. Ostomy intact. Extremity: No edema. There is no clubbing or cyanosis Const alert and oriented x3 HEENT normocephalic Resp clear to auscultation bilaterally Bladder / Kidney Exam: catheter in place Extremity no clubbing, cyanosis or edema Assessment & Plan Assessment/Plan (1) HENOK (acute kidney injury): PLAN: HENOK is secondary to obstructive uropathy. Patient has a right ureteral kidney stone which is obstructing in the setting of nonfunctioning left kidney. Creatinine 1.5 mg/dL on 05/12/2020. Creatinine on admission (08/11/2020 3.6 mg/dL), creatinine increased to 7.28 mg/dL on 08/13/2020. Ureteral stent was placed on 08/13/2020. There was some initial improvement after ureteral stent placement. However, serum creatinine has continued to increase again over the last 72 hours. Despite adequate urine output, serum creatinine has increased from 6.08 mg/dL on 08/15/2020 up to 8.21mg/dL and BUN >100 today. The initial plan was to place nephrostomy tube. However, CT scan done yesterday showed ureteral stent to be in good position with mild improvement of hydronephrosis. Therefore, decision was made not to proceed with nephrostomy tube placement. Since renal function continues to worsen, I will proceed with hemodialysis. Surgery has been consulted for tunneled hemodialysis catheter. We will start dialysis after tunneled dialysis catheter is placed. We will also start the process of looking for outpatient dialysis unit near his home in [place]. He will likely need to go to either [place] or [place] for dialysis. (2) Stage 3a chronic kidney disease: PLAN: Baseline serum creatinine is around 1.5 to 1.6 mg/dL. The patient has small left kidney which is likely nonfunctioning. As mentioned above, HENOK is likely due to obstruction of right kidney. However, despite placement of right ureteral stent, kidney function continues to decline. Imaging study yesterday does not suggest extrinsic compression of ureter. Ureteral stent appears to be in good position per CT scan interpretation. Therefore, we will proceed with hemodialysis once vascular access is established. (3) Renal calculi: PLAN: The patient has right ureteral stone which is obstructing on CT scan. He is status post cystoscopy and right ureteral stent placement by Dr. Mariee on 08/13/2020. (4) Hypertension: QUALIFIERS: Hypertension type: primary hypertension Qualified Code(s): I10 - Essential (primary) hypertension PLAN: BP is acceptable. Continue current dose of verapamil.
--- NOTE | 2020-08-19 11:07 | NURSING ---
Patient off unit to AC. Called to [facility] and spoke with [facility], asking for an ok to use line order if possible and if line is cleared to use after OR. Patient is to have dialysis this afternoon.
--- NOTE | 2020-08-19 11:10 | PN.SURG_ITS ---
Subjective Subjective Patient had new complaints this morning Objective Data Objective Data Vital Signs: Vital Signs Temp Pulse Resp BP Pulse Ox 98.5 F 80 18 122/61 H 97 08/19/20 09:30 08/19/20 09:30 08/19/20 09:30 08/19/20 09:30 08/19/20 09:30 Oxygen Flow Rate (L/min) [6] 15 Oxygen Flow Rate (L/min) [5] 15 Oxygen Flow Rate (L/min) [4] 15 Oxygen Flow Rate (L/min) [3] 15 Oxygen Flow Rate (L/min) [2] 15 Oxygen Flow Rate (L/min) [1 ( 15 Initial Baseline)] Oxygen Flow Rate (L/min) 2 Oxygen Delivery Method [6] Non-Rebreather Oxygen Delivery Method [5] Non-Rebreather Oxygen Delivery Method [4] Non-Rebreather Oxygen Delivery Method [3] Non-Rebreather Oxygen Delivery Method [2] Non-Rebreather Oxygen Delivery Method [1 ( Non-Rebreather Initial Baseline)] Oxygen Delivery Method Room Air Weight: 157 lb 13.616 oz Body Mass Index (BMI) 22.6 Intake & Output: Intake and Output for Last 24 Hours 08/17/20 08/18/20 08/19/20 23:59 23:59 23:59 Intake Total 283.75 / 283.75 1120 / 1120 Output Total 950 / 950 575 / 575 350 / 350 Balance -666.25 / -666.25 545 / 545 -350 / -350 Lab / Micro Data Result Diagrams: 08/19/20 05:58 08/19/20 05:58 Labs: Laboratory Results - last 24 hr 08/19/20 05:58: WBC 10.9, RBC 3.39 L, Hgb 10.3 L, Hct 31.6 L, MCV 93.2, MCH 30.4, MCHC 32.6 D, RDW Std Deviation 51.3 H, RDW Coeff of Jeremiah 14.9 H, Plt Count 257, MPV 9.5, Immature Gran % (Auto) 1.600 H, Neut % (Auto) 85.7 H, Lymph % (Auto) 4.7 L, [place] % (Auto) 7.4, Eos % (Auto) 0.4, Baso % (Auto) 0.2, Absolute Neuts (auto) 9.4 H, Absolute Lymphs (auto) 0.51 L, Nucleated RBC % 0 08/19/20 05:58: Sodium 132 L, Potassium 4.4, Chloride 106, Carbon Dioxide 17.0 L , Anion Gap 9, BUN 109 H*, Creatinine 8.21 H*, Estim Creat Clear Calc 6.66, Est GFR (MDRD) Af Amer 8 L, Est GFR (MDRD) Non-Af 7 L, BUN/Creatinine Ratio 13.3, Glucose 125 H, Calcium 8.2 L 08/19/20 05:58: APTT 35.3 Micro: Microbiology 08/18/20 12:45 Mucosa - Nose SARS-CoV-2 Antigen (Rapid) - Final 08/12/20 16:55 Urine, Catheterized Urine Culture - Final Pseudomonas putida Physical Exam Const oriented x3 and no apparent distress Resp normal respiratory effort Cardio regular rate and regular rhythm GI soft to palpation and non-tender Inspection: Negative for abdominal distention Assessment & Plan Assessment/Plan (1) HENOK (acute kidney injury): PLAN: Patient requires dialysis catheter. I discussed tunneled right chest dialysis catheter with the patient in detail this morning. I discussed the risks including but not limited to bleeding, infection, pneumothorax or DVT. The patient understands the risks and I will place a tunneled dialysis catheter in the right chest utilizing right IJ this afternoon. Oskar Rios MD Pager: [facility] [address] [place] [address], [address] [place] [phone] Office:
--- NOTE | 2020-08-19 11:50 | RAD_ITS ---
STUDY: X-RAY CHEST REASON FOR EXAM: Male, 85 years old. Hemodialysis cath placement attempt unsuccessful TECHNIQUE: Single AP portable view of the chest. COMPARISON: None. FINDINGS: Intraoperative imaging provided for right hemodialysis catheter placement. The distal tip of the guidewire is seen overlying the calcified right azygous lymph node. RAD/Chest 1 View IMPRESSION: Right sided calcified azygous lymph node. The tip of the guidewire is seen at that site. Electronically Signed: Morgan Alejandra MD at 13:15 EDT , Service support ,
[2020-08-19] MEDS: Cefazolin 2 GM in 0.9% Normal Saline 100 ML IV (12:12)
[2020-08-19] MEDS: Lidocaine 1%/Epi 1:200 (30ml) 30 ML AMPUL (12:20)
--- NOTE | 2020-08-19 13:27 | PCM.OPRPT ---
Problems Associated Problem List Diagnoses (1) HENOK (acute kidney injury): Report of Operation Date of Procedure: 08/19/20 Pre-Operative Diagnosis: Acute kidney injury need for dialysis access Post-Operative Diagnosis: Same Surgery/Procedure Performed:: Attempted right IJ dialysis catheter insertion Description of Procedure: Anesthesia was induced. The patient was placed in Trendelenburg position and the right neck and chest were prepped in usual sterile fashion. Ultrasound was used to localize the right IJ and local anesthetic was injected. An incision was made in the right chest as well as the right neck. Access needle was placed into the right IJ under direct visualization and a guidewire was placed into the right IJ. There was resistance met deep in the chest. Fluoroscopy was utilized and it appeared there was a heavily calcified area in the chest that did not allow passage of a guidewire. The guidewire was reflecting off of this and passing into the left subclavian. Several attempts were made but I was unable to traverse the calcified area. At this point I do not believe that I would be able to place a catheter into the vessel short of this as I was unable to reach the catheter to the end of the peel-away sheath. At this time the guidewire was removed and the chest incision was closed with Steri-Strips and the neck incision was closed with 3-0 Vicryl suture and Steri-Strips. Bandages were applied. Patient was awoken and taken to PACU in stable condition I will notify the hospitalist that the placement was unsuccessful. Patient will likely need CT of the chest versus echo. Admit VTE Documentation VTE Mechan Device Prophylaxis: SCD's
--- NOTE | 2020-08-19 16:53 | PCM.OPRPT ---
Problems Associated Problem List Diagnoses (1) HENOK (acute kidney injury): Report of Operation Date of Procedure: 08/19/20 Pre-Operative Diagnosis: Acute kidney injury Post-Operative Diagnosis: Same Surgery/Procedure Performed:: Ultrasound-guided right femoral temporary dialysis catheter placement Description of Surgical Findings:: The patient had unsuccessful right IJ temporary dialysis catheter placement in the OR due to calcifications causing the guidewire not to be able to be advanced into the superior vena cava. I was asked to place a femoral line for immediate dialysis. Description of Procedure: After obtaining signed consent from the patient the right groin was prepped and draped in usual sterile fashion. Ultrasound used to locate the right femoral vein. Next the skin was injected with local anesthetic and a doni was made in the skin. Using ultrasound guidance a needle was used to access the right femoral vein. Guidewire was placed without resistance into the right femoral vein and the needle was removed. Serial dilators were placed and then the catheter was placed into the vein and the guidewire was removed. Both catheters were easily able to aspirate and flush. There was no pulsatile bleeding. The catheters were capped and clamped. The catheter was sutured to the skin using 3-0 nylon suture. Bandage was applied. Patient will be immediately receiving dialysis within 15 minutes so heparin was not infused.
--- NOTE | 2020-08-19 19:01 | PN.HOSP_ITS ---
Subjective Subjective Patient was seen and examined today, I discussed his care with his who I saw this afternoon at the hospital and I also talked with nephrology and general surgery today. An attempt was made to place a tunneled dialysis catheter today but unfortunately, this was not successful due to a calcium deposit in the [place] vena cava. I then attempted to transfer the patient to another hospital to have a tunneled catheter placed in a different location but I was unable to secure a bed at any of the hospitals I called with the exception of [facility] and they could not guarantee placement of a dialysis catheter before late tomorrow by their interventional radiologist. I then decided to call general surgery back and have them put in a temporary dialysis catheter which was placed today. Patient will undergo dialysis tonight Objective Data Objective Data Vital Signs: Vital Signs Temp Pulse Resp BP Pulse Ox 97.8 F 77 18 110/62 100 08/19/20 18:48 08/19/20 18:48 08/19/20 18:48 08/19/20 18:48 08/19/20 18:48 Oxygen Flow Rate (L/min) [6] 15 Oxygen Flow Rate (L/min) [5] 15 Oxygen Flow Rate (L/min) [4] 15 Oxygen Flow Rate (L/min) [3] 15 Oxygen Flow Rate (L/min) [2] 15 Oxygen Flow Rate (L/min) [1 ( 15 Initial Baseline)] Oxygen Flow Rate (L/min) 2 Oxygen Delivery Method [6] Non-Rebreather Oxygen Delivery Method [5] Non-Rebreather Oxygen Delivery Method [4] Non-Rebreather Oxygen Delivery Method [3] Non-Rebreather Oxygen Delivery Method [2] Non-Rebreather Oxygen Delivery Method [1 ( Non-Rebreather Initial Baseline)] Oxygen Delivery Method Room Air Weight: 71.6 kg Body Mass Index (BMI) 22.6 Intake & Output: Intake and Output for Last 24 Hours 08/17/20 08/18/20 08/19/20 23:59 23:59 23:59 Intake Total 283.75 / 283.75 1120 / 1120 160.25 / 160.25 Output Total 950 / 950 575 / 575 1000 / 1000 Balance -666.25 / -666.25 545 / 545 -839.75 / -839.75 Lab / Micro Data Result Diagrams: 08/19/20 05:58 08/19/20 05:58 Labs: Laboratory Results - last 24 hr 08/19/20 05:58: WBC 10.9, RBC 3.39 L, Hgb 10.3 L, Hct 31.6 L, MCV 93.2, MCH 30.4, MCHC 32.6 D, RDW Std Deviation 51.3 H, RDW Coeff of Jeremiah 14.9 H, Plt Count 257, MPV 9.5, Immature Gran % (Auto) 1.600 H, Neut % (Auto) 85.7 H, Lymph % (Auto) 4.7 L, [place] % (Auto) 7.4, Eos % (Auto) 0.4, Baso % (Auto) 0.2, Absolute Neuts (auto) 9.4 H, Absolute Lymphs (auto) 0.51 L, Nucleated RBC % 0 08/19/20 05:58: Sodium 132 L, Potassium 4.4, Chloride 106, Carbon Dioxide 17.0 L , Anion Gap 9, BUN 109 H*, Creatinine 8.21 H*, Estim Creat Clear Calc 6.66, Est GFR (MDRD) Af Amer 8 L, Est GFR (MDRD) Non-Af 7 L, BUN/Creatinine Ratio 13.3, Glucose 125 H, Calcium 8.2 L 08/19/20 05:58: APTT 35.3 Micro: Microbiology 08/18/20 12:45 Mucosa - Nose SARS-CoV-2 Antigen (Rapid) - Final 08/12/20 16:55 Urine, Catheterized Urine Culture - Final Pseudomonas putida Radiography Diagnostic Testing: Radiology Impression Chest X-Ray 08/19/20 11:50 IMPRESSION: Right sided calcified azygous lymph node. The tip of the guidewire is seen at that site. Electronically Signed: Morgan Alejandra MD at 13:15 EDT , Service support , Physical Exam Const alert Constitutional Narrative: Patient appears lethargic, he shows confusion General Appearance: cooperative, well kempt and well developed Orientation / Consciousness: awake, oriented to person, oriented to place and oriented to time Exam Limitations: altered mental status HEENT normocephalic and moist oral mucous membranes Head and Scalp: normocephalic Eyes PERRL, EOMs intact bilaterally and conjunctivae normal Neck nuchal rigidity, supple, no JVD, thyroid normal and no carotid bruits General: trachea midline Resp normal respiratory effort, no retractions, no use of accessory muscles and clear to auscultation bilaterally Auscultation: Negative for rales, rhonchi or wheezes Cardio regular rate, regular rhythm, S1 normal heart sound, S2 normal heart sound, no murmurs, no rub, no gallops and no clicks GI normal to inspection, nondistended, normoactive bowel sounds, soft to palpation, non-tender and non-distended Extremity normal to inspection, full ROM and no clubbing, cyanosis or edema Skin no rashes or lesions noted General Skin Exam: no breakdown Neuro CN's II-XII intact bilaterally, no focal motor deficits and no sensory deficits noted Neuro Narrative: Patient is somnolent but awakens to painful stimuli Psych thought process normal Psych Narrative: Is somnolent and shows evidence of confusion Assessment & Plan Assessment/Plan (1) Acute kidney injury superimposed on chronic kidney disease: PLAN: PLAN: 1. Acute renal failure on an overlay of stage IIIa chronic kidney disease-patient will undergo dialysis tomorrow using a temporary dialysis catheter, he will need insertion of a tunneled dialysis catheter before he is di scharged in the hospital here, this will have to be performed at another institution so the patient will have to be transferred out to another hospital and will ultimately need to be discharged from that hospital to an extended care facility or home. #2 essential hypertension #3 anemia of chronic kidney disease #4 encephalopathy probably secondary to metabolic reasons ( Uremia) #5 generalized debility-PT and OT are seeing the patient, he will need temporary placement in residential facility at the time of discharge from a hospital #6 Status post right ureteral stent placement for right ureteral stone postop day 7 #7 atrophic left kidney Charges/Coding Visit Charges Inpatient E&M: 98104 Subs Hosp L2
--- NOTE | 2020-08-19 19:50 | DIALYSIS ---
First dialysis treatment complete. Tolerated well. No fluid removed. Ran on 3k bath. Used right femoral dialysis catheter. Lumens closed with heparin per fill volume. Caps placed. Dressing is intact. Report was given to CHICO Johnson.
[2020-08-19] MEDS: Acetaminophen 325 MG Tablet 650 MG PO (22:44)
[2020-08-19] MEDS: Heparin Injection (Vial) 5,000 UNIT/ML VIAL 5000 UNIT SC (22:45)
[2020-08-20] VITALS (9 sets, daily range): BP systolic 113–122; BP diastolic 50–69; PULSE 66–86; RESP 16–20; TEMP 36.3–37.2; O2SAT 93–99
[2020-08-20] MEDS: Albuterol 2.5 MG/3 ML VIAL.NEB. INHALATION ×2 (01:53→19:21)
[2020-08-20] MEDS: Menthol/Lanolin/Calamine/Znox 113 GM Tube 1 APPLIC TOPICAL ×3 (05:25→22:06)
[2020-08-20] MEDS: Nystatin Powder 15gm Bottle 1 APPLIC TOPICAL ×3 (05:25→22:06)
[2020-08-20 08:49] LABS: ALB/GLOB Ratio 0.5 RATIO (0.9-2.4); AST(SGOT) 22 U/L (15-37); Alanine Aminotransfer ALT/SGPT 14 U/L (16-61); Albumin, Serum 2.2 g/dL (3.2-5.0); Alkaline Phosphatase 192 U/L (45-117); Anion Gap 12 (5-15); BUN 80 mg/dL (7-18); BUN/Creat Ratio 12.6 RATIO (10-20); Calcium,Total 7.9 mg/dL (8.5-10.1); Chloride 102 mmol/L (98-107); Creatinine, Serum 6.34 mg/dL (0.70-1.30); EST Glomerular Filtration Rate 9 mL/min (>60); Est Glom Filt Rate - Afr Amer 11 mL/min (>60); Globulin 4.4 g/dL (2.2-4.2); Glucose 120 mg/dL (74-106); Potassium 4.3 mmol/L (3.5-5.1); Protein, Total 6.6 g/dL (6.4-8.2); Sodium Level 135 mmol/L (136-145)
[2020-08-20 09:46] LABS: Hepatitis B Surface Antigen Non-Reactive (Nonreactive)
[2020-08-20] MEDS: Heparin 10,000 UNITS/10 ML Vial IV (11:13)
--- NOTE | 2020-08-20 11:21 | DIALYSIS ---
HD x 3 hours complete. Tolerated tx well. Ran on 3k bath. UF of 1000ml. Used right femoral dialysis catheter. Lumens closed with heparin per fill volume. Caps placed. Dressing is dry and intact. Report was given to CHICO Daniel.
[2020-08-20] MEDS: Allopurinol 100 MG Tablet PO (12:01)
[2020-08-20] MEDS: Aspirin E.C. 81 MG Tablet PO (12:01)
[2020-08-20] MEDS: Heparin Injection (Vial) 5,000 UNIT/ML VIAL 5000 UNIT SC ×2 (12:01→22:06)
[2020-08-20] MEDS: Nepro with Carbsteady 237 ML Liquid 120 ML PO ×3 (12:06→17:00)
--- NOTE | 2020-08-20 16:11 | NURSING ---
This RN reviewed SN charting
[2020-08-20] MEDS: Verapamil SR 180 MG CAPSULE PO (16:59)
--- NOTE | 2020-08-20 19:27 | PN.HOSP_ITS ---
Subjective Subjective Patient was seen and examined today, he appears more alert than yesterday, he does not appear in any distress. Patient is having dialysis at the time of my examination. Patient will need a tunneled dialysis catheter placed, I called [facility] in [place] and they agreed to place the patient on a waiting list for hospital bed there, I relayed this via voice message to the patient's on her cell phone. Objective Data Objective Data Vital Signs: Vital Signs Temp Pulse Resp BP Pulse Ox 98.9 F 83 16 117/57 L 96 08/20/20 17:00 08/20/20 17:00 08/20/20 17:00 08/20/20 17:00 08/20/20 17:00 Oxygen Flow Rate (L/min) [6] 15 Oxygen Flow Rate (L/min) [5] 15 Oxygen Flow Rate (L/min) [4] 15 Oxygen Flow Rate (L/min) [3] 15 Oxygen Flow Rate (L/min) [2] 15 Oxygen Flow Rate (L/min) [1 ( 15 Initial Baseline)] Oxygen Flow Rate (L/min) 2 Oxygen Delivery Method [6] Non-Rebreather Oxygen Delivery Method [5] Non-Rebreather Oxygen Delivery Method [4] Non-Rebreather Oxygen Delivery Method [3] Non-Rebreather Oxygen Delivery Method [2] Non-Rebreather Oxygen Delivery Method [1 ( Non-Rebreather Initial Baseline)] Oxygen Delivery Method Room Air Weight: 78.562 kg Body Mass Index (BMI) 22.6 Intake & Output: Intake and Output for Last 24 Hours 08/18/20 08/19/20 08/20/20 23:59 23:59 23:59 Intake Total 1120 / 1120 451.25 / 451.25 360 / 360 Output Total 575 / 575 1250 / 1250 655 / 655 Balance 545 / 545 -798.75 / -798.75 -295 / -295 Lab / Micro Data Result Diagrams: 08/19/20 05:58 08/20/20 08:05 Labs: Laboratory Results - last 24 hr 08/19/20 17:14: Hep Bs Antigen Non-Reactive 08/20/20 08:05: Sodium 135 L, Potassium 4.3, Chloride 102, Carbon Dioxide 21.0, Anion Gap 12, BUN 80 H, Creatinine 6.34 H, Estim Creat Clear Calc 8.80, Est GFR (MDRD) Af Amer 11 L, Est GFR (MDRD) Non-Af 9 L, BUN/Creatinine Ratio 12.6, Glucose 120 H, Calcium 7.9 L, Total Bilirubin 0.40, AST 22, ALT 14 L, Alkaline Phosphatase 192 H, Total Protein 6.6, Albumin 2.2 L, Globulin 4.4 H, Albumin/Globulin Ratio 0.5 L Micro: Microbiology 08/18/20 12:45 Mucosa - Nose SARS-CoV-2 Antigen (Rapid) - Final 08/12/20 16:55 Urine, Catheterized Urine Culture - Final Pseudomonas putida Physical Exam Const alert, no apparent distress and healthy appearing General Appearance: cooperative, well kempt and well developed Orientation / Consciousness: awake, oriented to person, oriented to place and oriented to time HEENT normocephalic, head/scalp atraumatic and moist oral mucous membranes Head and Scalp: normocephalic Eyes PERRL, EOMs intact bilaterally and conjunctivae normal Neck nuchal rigidity, supple, no JVD, thyroid normal and no carotid bruits General: trachea midline Resp normal respiratory effort, no retractions, no use of accessory muscles and clear to auscultation bilaterally Auscultation: Negative for rales, rhonchi or wheezes Cardio regular rate, regular rhythm, S1 normal heart sound, S2 normal heart sound, no murmurs, no rub, no gallops and no clicks GI normal to inspection, nondistended, normoactive bowel sounds, soft to palpation, non-tender and non-distended Extremity normal to inspection and no clubbing, cyanosis or edema Skin no rashes or lesions noted General Skin Exam: no breakdown Neuro CN's II-XII intact bilaterally, no focal motor deficits and no sensory deficits noted Sensorium / Orientation: awake and alert Speech: speech normal Psych thought process normal and affect normal Assessment & Plan Assessment/Plan (1) HENOK (acute kidney injury): (2) Acute kidney injury superimposed on chronic kidney disease: PLAN: PLAN: 1. Acute renal failure on an overlay of stage IIIa chronic kidney disease-patient will most probably have dialysis again tomorrow, we are awaiting placement in a tertiary care center so that the patient may have a tunneled dialysis catheter placed. #2 essential hypertension #3 anemia of chronic kidney disease #4 encephalopathy probably secondary to metabolic reasons ( Uremia)-improved #5 generalized debility-PT and OT are seeing the patient, he will need temporary placement in longterm facility at the time of discharge from a hospital #6 Status post right ureteral stent placement for right ureteral stone postop day 8 #7 atrophic left kidney Charges/Coding Visit Charges Inpatient E&M: 58292 Subs Hosp L2
--- NOTE | 2020-08-20 21:45 | PN.RENAL_ITS ---
Subjective Subjective Following for HENOK on CKD. The patient feels a bit better today. He denies nausea, vomiting, or increased ostomy output. There has been no edema. Appetite is fair. Objective Data Objective Data Vital Signs: Vital Signs Temp Pulse Resp BP Pulse Ox 98.9 F 81 20 H 117/57 L 99 08/20/20 17:00 08/20/20 19:21 08/20/20 19:21 08/20/20 17:00 08/20/20 19:21 Oxygen Flow Rate (L/min) [6] 15 Oxygen Flow Rate (L/min) [5] 15 Oxygen Flow Rate (L/min) [4] 15 Oxygen Flow Rate (L/min) [3] 15 Oxygen Flow Rate (L/min) [2] 15 Oxygen Flow Rate (L/min) [1 ( 15 Initial Baseline)] Oxygen Flow Rate (L/min) 2 Oxygen Delivery Method [6] Non-Rebreather Oxygen Delivery Method [5] Non-Rebreather Oxygen Delivery Method [4] Non-Rebreather Oxygen Delivery Method [3] Non-Rebreather Oxygen Delivery Method [2] Non-Rebreather Oxygen Delivery Method [1 ( Non-Rebreather Initial Baseline)] Oxygen Delivery Method Room Air Weight: 78.562 kg Body Mass Index (BMI) 22.6 Intake & Output: Intake and Output for Last 24 Hours 08/18/20 08/19/20 08/20/20 23:59 23:59 23:59 Intake Total 1120 / 1120 451.25 / 451.25 360 / 360 Output Total 575 / 575 1250 / 1250 655 / 655 Balance 545 / 545 -798.75 / -798.75 -295 / -295 Lab / Micro Data Result Diagrams: 08/19/20 05:58 08/20/20 08:05 Labs: Laboratory Results - last 24 hr 08/19/20 17:14: Hep Bs Antigen Non-Reactive 08/20/20 08:05: Sodium 135 L, Potassium 4.3, Chloride 102, Carbon Dioxide 21.0, Anion Gap 12, BUN 80 H, Creatinine 6.34 H, Estim Creat Clear Calc 8.80, Est GFR (MDRD) Af Amer 11 L, Est GFR (MDRD) Non-Af 9 L, BUN/Creatinine Ratio 12.6, Glucose 120 H, Calcium 7.9 L, Total Bilirubin 0.40, AST 22, ALT 14 L, Alkaline Phosphatase 192 H, Total Protein 6.6, Albumin 2.2 L, Globulin 4.4 H, Albumin/Globulin Ratio 0.5 L Micro: Microbiology 08/18/20 12:45 Mucosa - Nose SARS-CoV-2 Antigen (Rapid) - Final 08/12/20 16:55 Urine, Catheterized Urine Culture - Final Pseudomonas putida Physical Exam Narrative General: Alert oriented x3 in no apparent distress Heart: Normal S1, S2 no rubs or murmurs Lungs: Some expiratory wheezing, decreased breath sound at bases. Abdomen: Normal active bowel sound, soft, nontender to palpation. No guarding or rebound. Ostomy intact. Extremity: No edema. There is no clubbing or cyanosis Assessment & Plan Assessment/Plan (1) HENOK (acute kidney injury): PLAN: HENOK is secondary to obstructive uropathy. Patient has a right ureteral kidney stone which is obstructing in the setting of nonfunctioning left kidney. Creatinine 1.5 mg/dL on 05/12/2020. Creatinine on admission (08/11/2020 3.6 mg/dL), creatinine increased to 7.28 mg/dL on 08/13/2020. Ureteral stent was placed on 08/13/2020. There was some initial improvement after ureteral stent placement. However, serum creatinine has continued to increase again over the last 72 hours. Unfortunately, tunneled dialysis catheter was unable to be placed due to inability to pass the wire past SVC yesterday. Temporary femoral dialysis catheter was placed, and the patient was dialyzed last night. I supervised the second dialysis treatment today: 3 hours treatment using F1 60 dialyzer. Blood flow 300/dialysate flow 600. The patient is still awaiting transfer to either [facility] or [facility] for tunneled dialysis catheter placement. While the patient is at [facility], I may ask IR to attempt to place nephrostomy tube to see if we can achieve renal improvement. The patient is at risk for extrinsic ureteral compression (although this was not seen on CT scan 2 days ago) due to history of colon cancer. Nephrostomy tube would also enable antegrade pyelogram to see if there is partial obstruction as well. We will also start the process of looking for outpatient dialysis unit near his home in [place]. He will likely need to go to either [place] or [place] for dialysis. (2) Stage 3a chronic kidney disease: PLAN: Baseline serum creatinine is around 1.5 to 1.6 mg/dL. The patient has small left kidney which is likely nonfunctioning. As mentioned above, HENOK is likely due to obstruction of right kidney. However, despite placement of right ureteral stent, kidney function continues to decline. (3) Renal calculi: PLAN: The patient has right ureteral stone which is obstructing on CT scan. He is status post cystoscopy and right ureteral stent placement by Dr. Mariee on 08/13/2020. (4) Hypertension: QUALIFIERS: Hypertension type: primary hypertension Qualified Code(s): I10 - Essential (primary) hypertension PLAN: BP is acceptable. Continue current dose of verapamil.
[2020-08-20] MEDS: Nepro Liquid 120 ML LIQUID PO (22:11)
[2020-08-21 03:35] VITALS: BP 119/61; PULSE 75; RESP 16; TEMP 36.7; O2SAT 93
[2020-08-21] MEDS: Menthol/Lanolin/Calamine/Znox 113 GM Tube 1 APPLIC TOPICAL ×2 (05:57→14:00)
[2020-08-21] MEDS: Nystatin Powder 15gm Bottle 1 APPLIC TOPICAL ×2 (05:58→14:00)
[2020-08-21 07:11] LABS: Absolute Lymphocyte Count 0.53 X10^3/uL (0.83-4.51); Absolute Neutrophil Count 7.4 X10^3/uL (2.0-7.7); Basophil# 0.02 X10^3/uL; Basophil% 0.2 % (0-1); Eosinophil# 0.17 X10^3/uL; Eosinophils% 1.8 % (0-5); Hematocrit 29.9 % (40-54); Hemoglobin 9.9 g/dL (13.0-16.5); Lymphocyte # 0.53 X10^3/ul (0.83-4.51); Lymphocyte % 5.7 % (19-41); Mean Corp Hgb Conc 33.1 g/dL (32-36); Mean Corpuscular Hgb 30.5 pg (27.0-32.0); Mean Platelet Vol. 9.8 fl (6.2-12.0); Monocyte# 1.05 X10^3/uL; Monocyte% 11.3 % (0-10); NRBC Flagged by Analyzer 0 % (0-5); Neutrophil # 7.36 X10^3/uL (2.7-7.7); Neutrophil % 79.2 % (47-70); POSITIVE DIFFERENTIAL YES; Platelet Count 212 K/mm3 (150-450); RBC Distribution Width CV 14.6 % (11.6-14.6); RBC Distribution Width SD 49.8 fl (35.1-43.9); Red Blood Count 3.25 M/mm3 (4.6-6.2); White Blood Count 9.3 K/mm3 (4.4-11.0)
[2020-08-21 07:14] LABS: Differential Indicated SCAN CRITERIA MET
[2020-08-21 07:42] LABS: Albumin, Serum 2.2 g/dL (3.2-5.0); BUN 49 mg/dL (7-18); BUN/Creat Ratio 10.1 RATIO (10-20); Calcium,Total 7.6 mg/dL (8.5-10.1); Chloride 102 mmol/L (98-107); Creatinine, Serum 4.85 mg/dL (0.70-1.30); EST Glomerular Filtration Rate 12 mL/min (>60); Est Glom Filt Rate - Afr Amer 15 mL/min (>60); Glucose 106 mg/dL (74-106); Phosphorus 3.7 mg/dL (2.5-4.9); Potassium 4.1 mmol/L (3.5-5.1); Sodium Level 133 mmol/L (136-145)
--- NOTE | 2020-08-21 07:47 | NURSING ---
spoke w/ rabia in dietary to please send breakfast tray so pt can eat-pt has dialysis scheduled this am
[2020-08-21] MEDS: Aspirin E.C. 81 MG Tablet PO (08:35)
[2020-08-21] MEDS: Verapamil SR 180 MG CAPSULE PO (08:35)
[2020-08-21] MEDS: Allopurinol 100 MG Tablet PO (08:35)
[2020-08-21 08:56] VITALS: BP 134/70; PULSE 79; RESP 18; TEMP 36.6; O2SAT 97
[2020-08-21] MEDS: Nepro with Carbsteady 237 ML Liquid 120 ML PO ×2 (11:03→17:02)
[2020-08-21] MEDS: Heparin Injection (Vial) 5,000 UNIT/ML VIAL 5000 UNIT SC (11:05)
--- NOTE | 2020-08-21 11:20 | PCM.PN.REN ---
Objective Data Objective Data Vital Signs: Vital Signs Temp Pulse Resp BP Pulse Ox 97.8 F 79 18 134/70 H 97 08/21/20 08:56 08/21/20 08:56 08/21/20 08:56 08/21/20 08:56 08/21/20 08:56 Oxygen Flow Rate (L/min) [6] 15 Oxygen Flow Rate (L/min) [5] 15 Oxygen Flow Rate (L/min) [4] 15 Oxygen Flow Rate (L/min) [3] 15 Oxygen Flow Rate (L/min) [2] 15 Oxygen Flow Rate (L/min) [1 ( 15 Initial Baseline)] Oxygen Flow Rate (L/min) 2 Oxygen Delivery Method [6] Non-Rebreather Oxygen Delivery Method [5] Non-Rebreather Oxygen Delivery Method [4] Non-Rebreather Oxygen Delivery Method [3] Non-Rebreather Oxygen Delivery Method [2] Non-Rebreather Oxygen Delivery Method [1 ( Non-Rebreather Initial Baseline)] Oxygen Delivery Method Room Air Weight: 78.6 kg Body Mass Index (BMI) 22.6 Intake & Output: Intake and Output for Last 24 Hours 08/19/20 08/20/20 08/21/20 23:59 23:59 23:59 Intake Total 451.25 / 451.25 360 / 360 400 / 400 Output Total 1250 / 1250 655 / 655 700 / 700 Balance -798.75 / -798.75 -295 / -295 -300 / -300 Lab / Micro Data Result Diagrams: 08/21/20 06:55 08/21/20 06:55 Labs: Laboratory Results - last 24 hr 08/21/20 06:55: WBC 9.3, RBC 3.25 L, Hgb 9.9 L, Hct 29.9 L, MCV 92.0, MCH 30.5, MCHC 33.1, RDW Std Deviation 49.8 H, RDW Coeff of Jeremiah 14.6, Plt Count 212, MPV 9.8, Immature Gran % (Auto) 1.800 H, Neut % (Auto) 79.2 H, Lymph % (Auto) 5.7 L, [place] % (Auto) 11.3 H, Eos % (Auto) 1.8, Baso % (Auto) 0.2, Absolute Neuts (auto) 7.4, Absolute Lymphs (auto) 0.53 L, Nucleated RBC % 0 08/21/20 06:55: Sodium 133 L, Potassium 4.1, Chloride 102, Carbon Dioxide 23.0, BUN 49 H, Creatinine 4.85 H, Estim Creat Clear Calc 11.50, Est GFR (MDRD) Af Amer 15 L, Est GFR (MDRD) Non-Af 12 L, BUN/Creatinine Ratio 10.1, Glucose 106, Calcium 7.6 L, Phosphorus 3.7, Albumin 2.2 L Micro: Microbiology 08/18/20 12:45 Mucosa - Nose SARS-CoV-2 Antigen (Rapid) - Final 08/12/20 16:55 Urine, Catheterized Urine Culture - Final Pseudomonas putida Physical Exam Narrative General: Alert oriented x3 in no apparent distress Heart: Normal S1, S2 no rubs or murmurs Lungs: Some expiratory wheezing, decreased breath sound at bases. Abdomen: Normal active bowel sound, soft, nontender to palpation. No guarding or rebound. Ostomy intact. Extremity: No edema. There is no clubbing or cyanosis Const alert and oriented x3 HEENT normocephalic Resp clear to auscultation bilaterally Bladder / Kidney Exam: catheter in place Extremity no clubbing, cyanosis or edema Assessment & Plan Assessment/Plan (1) HENOK (acute kidney injury): PLAN: HENOK is secondary to obstructive uropathy. Patient has a right ureteral kidney stone which is obstructing in the setting of nonfunctioning left kidney. Creatinine 1.5 mg/dL on 05/12/2020. Creatinine on admission (08/11/2020 3.6 mg/dL), creatinine increased to 7.28 mg/dL on 08/13/2020. Ureteral stent was placed on 08/13/2020. There was some initial improvement after ureteral stent placement. However, serum creatinine has continued to increase again over the last 72 hours. Unfortunately, tunneled dialysis catheter was unable to be placed due to inability to pass the wire past SVC on monday. Temporary femoral dialysis catheter was placed on , and the patient was dialyzed last night. I supervised the second dialysis treatment today: 3 hours treatment using F1 60 dialyzer. Blood flow 300/dialysate flow 600. The patient is still awaiting transfer to either [facility] or [facility] for tunneled dialysis catheter placement. While the patient is at [facility], I may ask IR to attempt to place nephrostomy tube to see if we can achieve renal improvement. The patient is at risk for extrinsic ureteral compression (although this was not seen on CT scan 2 days ago) due to history of colon cancer. Nephrostomy tube would also enable antegrade pyelogram to see if there is partial obstruction as well. We will also start the process of looking for outpatient dialysis unit near his home in [place]. He will likely need to go to either [place] or [place] for dialysis. (2) Stage 3a chronic kidney disease: PLAN: Baseline serum creatinine is around 1.5 to 1.6 mg/dL. The patient has small left kidney which is likely nonfunctioning. As mentioned above, HENOK is likely due to obstruction of right kidney. However, despite placement of right ureteral stent, kidney function continues to decline. (3) Renal calculi: PLAN: The patient has right ureteral stone which is obstructing on CT scan. He is status post cystoscopy and right ureteral stent placement by Dr. Mariee on 08/13/2020. (4) Hypertension: QUALIFIERS: Hypertension type: primary hypertension Qualified Code(s): I10 - Essential (primary) hypertension PLAN: BP is acceptable. Continue current dose of verapamil.
[2020-08-21 16:00] VITALS: PULSE 76; RESP 18
[2020-08-21] MEDS: Acetaminophen 325 MG Tablet 650 MG PO (16:00)
[2020-08-21 16:34] VITALS: BP 130/63; PULSE 76; RESP 18; TEMP 36.7; O2SAT 96
--- NOTE | 2020-08-21 17:54 | NURSING ---
eport given to Inga @ [facility], [phone]
--- NOTE | 2020-08-21 18:32 | DIALYSIS ---
Hemodialysis completed 3.5 hours on a 3 K bath. Fluid removed was 1 liter. Patient tolerated well, this was his 3rd dialysis treatment. He will be transferred to [facility] to have a tunneled dialysis cath placement. Next HD most likely Monday08/24/20
--- NOTE | 2020-08-21 18:51 | NURSING ---
at approx 1840, physicians ambulance arrives and report given, pt transferred to cot and transferred ti [id number] via ambulance report called previously to [facility]
--- NOTE | 2020-08-22 14:48 | PCM.DC.SUM ---
Providers Date of Admission: 08/11/20 Date of Discharge: 08/21/20 Primary Care Physician: Dr. Reyna Hoff MD Consultations 08/11/20 20:08 Consult: Onc/Wound/commercial credit portfolio manager Routine Comment: Reason for Consult:: ostomy present 08/13/20 07:35 Consult: Nephrology Routine Consulting Provider: Debbie Mir Reason for Consult: ATN EMERGENT Consult: No MD Notified: Yes Date Notified: 08/13/20 Time Notified: 08:46 Method of Notification: Answering Service 08/18/20 08:48 Consult: General Surgery Routine Consulting Provider: Oskar Rios Reason for Consult: need for tunneled dialysis cath EMERGENT Consult: No MD Notified: Yes Date Notified: 08/18/20 Time Notified: 08:49 Method of Notification: Verbal Reason For Visit: HENOK Diagnosis Discharge Diagnosis (1) HENOK (acute kidney injury): Status: Acute Code(s): N17.9 - Acute kidney failure, unspecified (2) Stage 3a chronic kidney disease: Status: Chronic Code(s): N18.31 - Chronic kidney disease, stage 3a (3) Renal calculi: Status: Chronic Code(s): N20.0 - Calculus of kidney (4) Hypertension: Status: Chronic Code(s): I10 - Essential (primary) hypertension Qualifiers: Hypertension type: primary hypertension Qualified Code(s): I10 - Essential (primary) hypertension Plan: Assessment & Plan Assessment/Plan Final diagnosis: 1. Acute renal failure on an overlay of stage IIIa chronic kidney disease-requiring hemodialysis #2 essential hypertension #3 anemia of chronic kidney disease #4 encephalopathy secondary to metabolic reasons ( Uremia) #5 generalized debility #6 Status post right ureteral stent placement for right ureteral stone #7 atrophic left kidney Medications at Discharge Home Medications verapamil 180 mg PO DAILY 05/30/14 aspirin 81 mg PO DAILY 10/16/18 allopurinol 100 mg PO DAILYCM #90 tab 01/03/20 tolterodine 4 mg PO DAILY 08/11/20 Hospital Course Operations None Procedures - (Placement of right ureteral stent) Summary of Care Provided Minutes Spent on Discharge: 31 Hospital Course: This 85-year-old white male was seen in the emergency room at [facility] with a chief complaint of decreased urinary output. Work-up in the emergency room revealed the patient's creatinine to be elevated at 3.66, BUN was 39, and white blood cell count was slightly elevated. Patient was admitted to [place] [address], he underwent a renal ultrasound which showed moderate hydronephrosis of the right kidney, CT scan of the abdomen and pelvis demonstrated an atrophic left kidney and a solitary right kidney with an obstructing stone in the mid ureter. Patient's lab was monitored, patient's creatinine worsened during his hospital stay and he was seen in consultation by nephrology and urology, urology placed a stent in the right ureter, however, despite this the patient's creatinine worsened and he had to have a temporary dialysis catheter inserted and he underwent dialysis. A tunneled dialysis catheter could not be inserted due to an obstruction in the superior vena cava from what was believed to be a calcified granuloma. Patient improved following dialysis, he had to be sent to a tertiary care hospital for insertion of a tunneled dialysis catheter however. On 08/21/2020, patient was seen and examined: On examination he appeared his stated age, he was in no distress. Vital signs as documented. Skin warm and dry and without overt rashes. Neck without JVD, neck was supple, trachea midline, thyroid was normal. Lungs clear bilaterally, normal air movement was noted. Heart exam notable for regular rhythm, normal sounds and absence of murmurs, rubs or gallops. Abdomen unremarkable and without evidence of organomegaly, masses, or abdominal aortic enlargement. Bowel sounds are present, abdomen is not distended. Extremities nonedematous, no cyanosis was noted, no clubbing was noted. Neuro: Cranial nerves II through XII are grossly intact, no focal motor deficits were noted, sensation to light touch and pinprick intact, motor exam 5/5 throughout. Psych: Patient is alert and oriented x3, he does not appear anxious or depressed, he does not appear agitated. Patient was transferred to [facility] on 08/21/2020 in stable condition. Weight / BMI Weight Weight: 78.6 kg Body Mass Index (BMI) 22.6 ABG / Lab / Microbiology Data Result Diagrams: 08/21/20 06:55 08/21/20 06:55 Microbiology: Microbiology 08/18/20 12:45 Mucosa - Nose SARS-CoV-2 Antigen (Rapid) - Final 08/12/20 16:55 Urine, Catheterized Urine Culture - Final Pseudomonas putida Meaningful Use Info Meaningful Use Diagnoses (Choose all that apply): None applicable Discharge Plan Admission Admit Date/Time: 08/11/20 19:37 Attending Provider: Rich Franco Primary Care Provider: Reyna Hoff Consulting Providers: Debbie Mir ; Oskar Rios Discharge Orders/Prescriptions Prescriptions: No Action verapamil 180 MG tablet extended release 180 mg PO DAILY RF: 0 aspirin 81 MG tablet,delayed release (DR/EC) 81 mg PO DAILY RF: 0 allopurinol 100 MG tablet 100 mg PO DAILYCM Qty: 90 RF: 3 tolterodine 4 mg Capsule,Extended Release 24hr 4 mg PO DAILY RF: 0 Referrals / Follow Up: Reyna Hoff MD [Primary Care Provider] - Disposition Disposition (needs filled in before D/C Order can be placed): Transfer to Another Type HCF Charges/Coding Visit Charges Inpatient E&M: 05488 Disch Hosp
== END 2020-08-21 18:45 | disposition other institution (70) | DRG 659 ==
LOC: ED 19:18 → MS3 20:40
PROVIDERS: Anesthesiology; Family Medicine; Internal Medicine Nephrology; Pediatrics Pediatric Nephrology; Surgery; Urology; Admitting Provider Hospitalist; Emergency Provider Emergency Medicine; PCP Family Medicine; Visit Provider Internal Medicine
PROC: 0T768DZ Dilation of Right Ureter with Intraluminal Device, Via Natural or Artificial Opening Endoscopic (ICD-10-PCS; principal; 2020-08-13 18:00)
PROC: 06HY33Z Insertion of Infusion Device into Lower Vein, Percutaneous Approach (ICD-10-PCS; principal; 2020-08-19 11:45)
DX: N17.0 Acute kidney failure with tubular necrosis (principal); G93.41 Metabolic encephalopathy; K51.90 Ulcerative colitis, unspecified, without complications; I12.9 Hypertensive chronic kidney disease with stage 1 through stage 4 chronic kidney disease, or unspecified chronic kidney disease; N13.2 Hydronephrosis with renal and ureteral calculous obstruction; N32.81 Overactive bladder; N18.31 Chronic kidney disease, stage 3a; D63.1 Anemia in chronic kidney disease; M19.90 Unspecified osteoarthritis, unspecified site; E86.0 Dehydration; L92.8 Other granulomatous disorders of the skin and subcutaneous tissue; R53.81 Other malaise; Z90.49 Acquired absence of other specified parts of digestive tract; Z93.3 Colostomy status; Z90.79 Acquired absence of other genital organ(s); Z99.2 Dependence on renal dialysis; Z79.82 Long term (current) use of aspirin; Z79.899 Other long term (current) drug therapy; Z53.8 Procedure and treatment not carried out for other reasons; Z87.442 Personal history of urinary calculi; Z87.440 Personal history of urinary (tract) infections; Z85.038 Personal history of other malignant neoplasm of large intestine
CPT/HCPCS: 36415; 71045; 74150; 74176; 76000; 76770; 80048; 80053; 80069; 81001; 82570; 83935; 84300; 85025; 85027; 85610; 85730; 87077; 87086; 87088; 87186; 87340; 87426; 90937; 93005; 94640; 97110; 97162; 97166; 97530; 97535; 97802; 99156; 99283; J7030; J7040; A4216; C1750; C1752; C1769; C2617; G0257; J1940; J2405

== ENCOUNTER 2020-09-18 05:12 | Day surgery (SDC) | payer MEDICARE, SELFPAY ==
[2020-01-06 21:22] VITALS: BMI 23.6
[2020-08-19 11:23] VITALS: BMI 22.6
[2020-09-18] VITALS (9 sets, daily range): BP systolic 115–144; BP diastolic 57–69; PULSE 55–61; RESP 16; TEMP 35.9–36.5; O2SAT 97–100; BMI 21.4
--- NOTE | 2020-09-18 05:52 | RAD_ITS ---
HISTORY: surgery EXAMINATION/TECHNIQUE: XR Abdomen 1 View: Supine AP view, 2 images COMPARISON: None FINDINGS: Right ureteral stent and overlying right percutaneous nephrostomy tube in place. Small calcified pelvic phleboliths also noted. Nonobstructive bowel gas pattern with no significant bowel dilatation. Unremarkable lung bases. Numerous calcified splenic granulomas noted. Degenerative changes and scoliotic curvature along spine. Status post right hip arthroplasty. RAD/Abdomen Single View IMPRESSION: Right ureteral stent and percutaneous nephrostomy tube in place. at 0713 Reported and signed by: Rich Martin MD Electronically Signed: Rich Martin MD at 7:12 EDT Tel , Service support ,
[2020-09-18] MEDS: Lactated Ringers 1,000 ML 100 ML IV (06:40)
[2020-09-18] MEDS: Cefazolin 2 GM in 0.9% Normal Saline 100 ML IV (07:26)
--- NOTE | 2020-09-18 07:34 | HP.PCM_ITS ---
HPI - General HPI Narrative 85-year-old male who presented with obstructing stone and solitary kidney had a stent placed and also a nephrostomy tube placed, today presents for ureteroscopy and laser of the stone and removal of the nephrostomy tube and also. placement of a stent [facility] Medical History (Updated 09/11/20 @ 15:37 by Diana Moreira) Arthritis Colitis Colostomy in place History of renal dialysis History of renal disease HTN (hypertension) Incontinence of bowel Kidney stones Leg cramps Non-smoker Redness of skin Shortness of breath on exertion UTI (urinary tract infection) Walker as ambulation aid Wears glasses Home Medications verapamil 180 mg PO DAILY 05/30/14 [History Last Taken 09/18/20 05:30] aspirin 81 mg PO DAILY 10/16/18 [History Last Taken 08/11/20] cholecalciferol (vitamin D3) [Vitamin D3] 25 mcg PO DAILY 09/11/20 [History Last Taken Unknown] ciprofloxacin HCl [Cipro] 500 mg PO BID #10 tab 09/18/20 [Rx Last Taken Unknown] Allergy/AdvReac Type Severity Reaction Status Date / Time allopurinol AdvReac Chest Verified 09/18/20 06:43 tightness ciprofloxacin [From Cipro] AdvReac didn't Verified 09/18/20 06:43 know spouse Family History (Updated 08/11/20 @ 20:[address] Taurus Dumont MD) Father Heart disease Surgical History (Updated 09/11/20 @ 15:37 by Diana Moreria) H/O colectomy History of cataract surgery History of herniorrhaphy History of hip surgery History of lithotripsy History of ureter stent Nephrostomy status Social History (Updated 08/11/20 @ 20:[address] Taurus Dumont MD) Smoking Status: Never smoker ROS Constitutional Constitutional: Denies chills, fever(s) or malaise Eyes Eyes: Denies blurry vision or change in vision ENT HEENT: Reports none Cardiovascular Cardiovascular: Denies chest pain or palpitations Respiratory/Chest Respiratory/Chest: Denies cough or shortness of breath with exertion Gastrointestinal Gastrointestinal: Denies abdominal pain, constipation or diarrhea Musculoskeletal Musculoskeletal: Denies back pain, joint stiffness or joint swelling Integumentary Integumentary: Denies dry skin, jaundice, lesions or rash Neurologic Neurologic: Denies confusion, syncope or weakness Psychiatric Psychiatric: Reports none; Denies anxiety or depression Endocrine Endocrinology: Denies excessive sweating, fatigue or flushing Hematologic/Lymphatic Hematologic/Lymphatic: Denies anemia, easy bleeding or easy bruising Vital Signs Vital Signs Vital Signs: 09/18/20 06:32 Temperature 96.7 F L Temperature Source Temporal Pulse Rate 61 Respiratory Rate 16 Respiratory Pattern Normal Blood Pressure 144/57 H Blood Pressure Mean 86 Blood Pressure Source Monitor Blood Pressure Position Semi-Fowlers Blood Pressure Location Left Arm Pulse Ox 99 Oxygen Delivery Method Room Air Weight Weight: 64.1 kg Body Mass Index (BMI) 21.4 Physical Exam Const alert and oriented x3 General Appearance: cooperative HEENT normocephalic, head/scalp atraumatic, EAC's normal and TM's normal bilaterally Eyes PERRL and EOMs intact bilaterally Pupil: sluggish Neck no lymphadenopathy, supple and no JVD General: trachea midline Lymph Lymphatic: no lymphadenopathy noted, lymphedema and lymphadenopathy Resp normal respiratory effort, normal air movement and clear to auscultation bilaterally Cardio regular rate, regular rhythm and peripheral pulses 2+ throughout GI soft to palpation, non-tender and non-distended Extremity normal capillary refill and no clubbing, cyanosis or edema General Extremity: no tenderness to palpation of joints or extremities Skin no rashes or lesions noted General Skin Exam: turgor normal Lesions: no lesions Rashes: no rashes Neuro CN's II-XII intact bilaterally Speech: speech normal Motor Exam: strength 5/5 throughout; Negative for general weakness Psych thought process normal, cooperative and affect normal Appearance: appropriate Results Radiology Impression KUB X-Ray 09/18/20 05:52 IMPRESSION: Right ureteral stent and percutaneous nephrostomy tube in place. at 0713 Reported and signed by: Rich Martin MD Electronically Signed: Rich Martin MD at 7:12 EDT Tel , Service support , Assessment & Plan Assessment/Plan (1) Renal calculi: PLAN: Plan to laser stones and place a stent and remove nephrostomy tube the right side
--- NOTE | 2020-09-18 07:35 | DCINST_ITS ---
Discharge Instructions Diet Discharge Diet: No restrictions Activity Discharge Activity: Return to Normal Activity and May Not Drive (while taking narcotic pain medications.) Dressing / Incision Call your doctor if you observe: Fever of 101 or Higher Follow Up Care Please Follow Up With: Giacomo Mariee MD When: Call [phone] for an appointment Test Results: Test results from this visit will be discussed in further detail at your follow-up appointment, if applicable. Discharge Plan Admission Primary Reason for Your Visit: Laser stone and stent Attending Provider: Giacomo Mariee Primary Care Provider: Reyna Hoff Discharge Orders/Prescriptions Prescriptions: New ciprofloxacin HCl [Cipro] 500 mg tablet 500 mg PO BID Qty: 10 RF: 0 Continued verapamil 180 MG tablet extended release 180 mg PO DAILY RF: 0 aspirin 81 MG tablet,delayed release (DR/EC) 81 mg PO DAILY RF: 0 cholecalciferol (vitamin D3) [Vitamin D3] 25 mcg (1,000 unit) Tablet,Chewable 25 mcg PO DAILY RF: 0 Other Ambulatory Orders: Abdomen Single View (Routine) Timeframe: 20200918 Facility: [facility] - Location: [facility] Ordered By: Dr. Giacomo Mariee Referrals / Follow Up: Reyna Hoff MD [Primary Care Provider] - Giacomo Mariee MD [STAFF PHYSICIAN] - Disposition Disposition (needs filled in before D/C Order can be placed): Home, Self Care
[2020-09-18] MEDS: Lubricating Jelly 60 GM Tube 30 GM TOPICAL (07:48)
--- NOTE | 2020-09-18 08:44 | PCM.OPRPT ---
Report of Operation Date of Procedure: 09/18/20 Pre-Operative Diagnosis: Right proximal ureteral calculi status post stent placement and status post nephrostomy tube placement Post-Operative Diagnosis: Same Surgery/Procedure Performed:: Cystoscopy, removal of right stent, right ureteroscopy laser lithotripsy of stones multiple, right nephrostomy tube removal nephrostogram, right retrograde pyelogram, ureteroscopy basket extraction of stone fragments and right stent placement complicated case. Retrograde pyelogram and interpertation of images. Description of Surgical Findings:: Is an 85-year-old male with a solitary right kidney who was in the hospital with obstructing stone in the proximal right ureter he underwent stent placement and after this he underwent nephrostomy tube placement. He now presents to the hospital for ureteroscopy and laser lithotripsy of the stone fragments that are blocking his ureter. Patient was taken back to the operating room at the smooth induction of general anesthesia I went into the bladder with a 21 [place] rigid cystourethroscope I grabbed the existing stent with a grasper and pulled out to the meatus and put a wire through the stent wire went all the way up to the kidney and then over the wire advanced a flexible ureteroscope as I went up to the kidney I was able to go all the way the kidney with a flexible ureteroscope I encountered the nephrostomy tube this was clamped close at this point I worked my way down the ureter and encountered 2 large stone fragments but the ureter had some severe angulations and was torturous from the obstruction therefore is almost impossible to laser the stones because of the severe tortuosity of the ureter so then I try to get a wire past the stone again but is quite difficult so after some manipulation then I was able to get the ureteroscope passed stones again and then I put a a Super Stiff wire through the ureteroscope and then backed out over the Super Stiff wire and then used a dual-lumen catheter then placed a second wire up in the kidney and now this point had to wire secure access to the kidney with a Super Stiff wire straightened out the ureter and then a regular working wire over the working wire went back in with the flexible ureteroscope and this time was able to engage the stones and laser laser lithotripsy as they were easily accessible with the Super Stiff wire straighten out the ureter. After lasering the stones completely nephrostomy tube was clamped open and then and then to allow the kidney to drain and then all the stones were lasered I completed a work my way down the ureter and then in the distal ureter there is a lot of fragments are stuck in the distal ureter so I went back in with a semirigid ureteroscope and used a basket and backed it basketed out these fragments in the distal ureter. After basketing out these fragments in the distal ureter then I advanced a wire up into the kidney and over the wire I placed a stent, and then the nephrostomy tube was removed in the back of the patient but however when the tube was removed it grabbed the stent and pulled it out so the stent was mispositioned so then I went had to go back in the bladder with a semirigid ureteroscope we then used a grasper to grab the stent and remove the stent and then I advanced another wire up the ureter to the right side with a Pollick catheter performed a retrograde pyelogram he see contrast going up into the kidney. Once the retrograde pyelogram was done then I can see contrast filling the kidney in the upper pole midpole lower pole and there was no hydronephrosis. And then at this point we advanced a wire up into the kidney that coiled and then over the wire advanced a stent 6 [place] by 26 cm stent the stent coiled in the kidney and bladder in good position and then pulled the wire and drained the bladder and the patient anesthetic was reversed I will see him in the office in about 10 days for cystoscopy stent removal after fairly complicated case to laser the stones. Surgeon: anne Type of Anesthesia: General Drains: stent right side Admit VTE Documentation VTE Present on Admission: No VTE Mechan Device Prophylaxis: SCD's
== END 2020-09-18 10:58 | disposition home or self-care (01) ==
LOC: SDC 05:12 → AC 05:14
PROVIDERS: PCP Family Medicine; Referring Provider Urology; Visit Provider Urology
PROC: 0TJ98ZZ Inspection of Ureter, Via Natural or Artificial Opening Endoscopic (ICD-10-PCS; CPT 52352; principal; 2020-09-18 07:20)
DX: N20.1 Calculus of ureter (principal); I12.9 Hypertensive chronic kidney disease with stage 1 through stage 4 chronic kidney disease, or unspecified chronic kidney disease; N18.30 Chronic kidney disease, stage 3 unspecified; Z93.3 Colostomy status; Z90.49 Acquired absence of other specified parts of digestive tract; Z79.82 Long term (current) use of aspirin; Z79.899 Other long term (current) drug therapy; Z87.442 Personal history of urinary calculi; Z20.822 Contact with and (suspected) exposure to COVID-19
CPT/HCPCS: 50389; 52356; 74018; 76000; 87426; C9803; J7120; C1758; C1769; C2617; J2405

== ENCOUNTER 2020-11-02 13:34 | Emergency (ER) | payer MEDICARE, SELFPAY ==
[2020-11-02] VITALS (11 sets, daily range): BP systolic 94–111; BP diastolic 60–72; PULSE 68–80; RESP 14–26; TEMP 36.4; O2SAT 80–100; BMI 20.2
--- NOTE | 2020-11-02 14:31 | EDS_ITS ---
HPI History of Present Illness Chief Complaint: General Illness Narrative Narrative: 85-year-old male presenting with his because he states he wants to . Patient's was seeking hospice care. She tried to call as an outpatient but could not get a return call or an answer. Patient's states that he has history of hypertension, kidney stones, kidney disease. She states that he has been stating that he wants to at home. He does not want any care. He does not want to be admitted to the hospital. He did not even want to come to the hospital today. Patient's states that he can no longer get up and ambulate. He is not eating and drinking. She states she cannot care for him at home. She request hospice in the ER and states that she is the power of securities attorney. [facility] Medical History Arthritis Colitis Colostomy in place History of renal dialysis History of renal disease HTN (hypertension) Incontinence of bowel Kidney stones Leg cramps Non-smoker Redness of skin Shortness of breath on exertion UTI (urinary tract infection) Walker as ambulation aid Wears glasses Home Medications verapamil 180 mg PO DAILY 05/30/14 [History Last Taken 09/18/20 05:30] aspirin 81 mg PO DAILY 10/16/18 [History Last Taken 08/11/20] cholecalciferol (vitamin D3) [Vitamin D3] 25 mcg PO DAILY 09/11/20 [History Last Taken Unknown] ciprofloxacin HCl [Cipro] 500 mg PO BID #10 tab 09/18/20 [Rx Last Taken Unknown] Allergy/AdvReac Type Severity Reaction Status Date / Time allopurinol AdvReac Chest Verified 11/02/20 13:44 tightness ciprofloxacin [From Cipro] AdvReac didn't Verified 11/02/20 13:44 know spouse Family History Father Heart disease Surgical History H/O colectomy History of cataract surgery History of herniorrhaphy History of hip surgery History of lithotripsy History of ureter stent Nephrostomy status Social History Smoking Status: Never smoker ROS ROS ED Constitutional Constitutional ED: Reports other Details: Generalized fatigue and weakness. ; Denies chills or fever(s) Eyes Eyes: Denies blurry vision or change in vision ENT ENT ED: Denies rhinorrhea or sore throat Cardiovascular Cardiovascular: Denies chest pain or palpitations Respiratory/Chest Respiratory/Chest: Denies cough or sputum Gastrointestinal Gastrointestinal: Reports other Details: Decreased appetite ; Denies abdominal pain, nausea or vomiting Genitourinary Genitourinary ED: Denies dysuria or hematuria Musculoskeletal Musculoskeletal: Denies arthralgias or myalgias Integumentary Denies Abrasions or rash Neurologic Neurologic: Denies headache(s) Psychiatric Psychiatric: Reports depression EXAM Physical Exam Const Vital Signs: 11/02/20 13:35 11/02/20 13:44 11/02/20 15:00 Temperature 97.5 F L Temperature Source Temporal Pulse Rate 80 77 80 Respiratory Rate 19 H 19 H 14 Respiratory Effort Respiratory Pattern Blood Pressure 94/60 110/72 Blood Pressure Mean 71 84 Pulse Ox 80 94 99 Oxygen Delivery Method Room Air Nasal Cannula Nasal Cannula Oxygen Flow Rate (L/min) 5 4 11/02/20 15:03 11/02/20 15:59 11/02/20 17:07 Temperature Temperature Source Pulse Rate 79 68 Respiratory Rate 16 16 Respiratory Effort Normal Respiratory Pattern Normal Blood Pressure 103/66 100/64 Blood Pressure Mean 78 76 Pulse Ox 96 100 Oxygen Delivery Method Nasal Cannula Room Air Oxygen Flow Rate (L/min) 2 11/02/20 18:14 Temperature Temperature Source Pulse Rate 78 Respiratory Rate 14 Respiratory Effort Respiratory Pattern Blood Pressure 101/67 Blood Pressure Mean 78 Pulse Ox 95 Oxygen Delivery Method Nasal Cannula Oxygen Flow Rate (L/min) 2 Positive unkempt General Appearance ED: unkempt and cyanotic; Negative for diaphoretic HEENT Reports dry mucous membranes Negative for trauma Mouth ED: Yes dry mucous membranes Mouth: dry mucous membranes Eyes EOMs intact bilaterally Resp normal respiratory effort Auscultation: Negative for rales or wheezes Cardio regular rate and regular rhythm Extremity General Extremety ED: Negative for edema or tenderness General Extremity: Negative for edema Neuro Sensorium / Orientation: alert and lethargic Motor Exam: general weakness Psych Appearance: unkempt Skin no rashes or lesions noted and no wounds MDM MDM MDM Narrative Medical decision making narrative: Patient presenting with his stating that he does not want any medical care and wants to be DNR. His is power of securities attorney and was able to sign paperwork for this. Patient is from [place] and she brought her here to see hospice because he states he does not want to live anymore. I did speak with Dr. Liao and he did request that I do lab work to see how he would plan his care. After I did the lab work I was found a 30,000 white count with left shift. Patient's creatinine is 6.46 which is near his baseline. At this point he states that he does not believe he has a room inpatient for him. He recommended either trying to admit the patient to the hospital for hospice or get him home with hospice. I did get social work involved and they were unable to get him placement locally. Since the patient is from [place] social work was able to speak with somebody in that area who was able to take him to an inpatient bed. They were able to speak with his in the room and make these arrangements. Patient will be transported to inpatient hospice from here. Impression: 1. Leukocytosis 2. End-stage renal disease 3. Hypoxic respiratory failure 4. Cyanosis Lab Data Attestation: I reviewed the patient's lab results. Labs: Laboratory Results - last 24 hr 11/02/20 11/02/20 15:35 15:35 WBC 30.3 H* RBC 4.76 Hgb 14.1 Hct 42.6 MCV 89.5 MCH 29.6 MCHC 33.1 RDW Std Deviation 50.4 H RDW Coeff of Jeremiah 15.2 H Plt Count 348 MPV 10.6 Immature Gran % (Auto) 1.200 H Neut % (Auto) 87.2 H Lymph % (Auto) 2.4 L Eaton % (Auto) 9.1 Eos % (Auto) 0.0 Baso % (Auto) 0.1 Absolute Neuts (auto) 26.4 H Absolute Lymphs (auto) 0.74 L Nucleated RBC % 0 Differential Comment SCANNED Diff Path Review May foll Sodium 131 L Potassium 5.0 Chloride 100 Carbon Dioxide 10.0 L Anion Gap 21 H BUN 121 H* Creatinine 6.46 H Estim Creat Clear Calc 7.15 Est GFR (MDRD) Af Amer 11 L Est GFR (MDRD) Non-Af 9 L BUN/Creatinine Ratio 18.7 Glucose 148 H Calcium 9.3 Discharge Plan Triage Chief Complaint: General Illness ED Provider: Marek Nixon Dx/Rx/DC Orders Prescriptions: No Action verapamil 180 MG tablet extended release 180 mg PO DAILY RF: 0 aspirin 81 MG tablet,delayed release (DR/EC) 81 mg PO DAILY RF: 0 cholecalciferol (vitamin D3) [Vitamin D3] 25 mcg (1,000 unit) Tablet,Chewable 25 mcg PO DAILY RF: 0 ciprofloxacin HCl [Cipro] 500 mg tablet 500 mg PO BID Qty: 10 RF: 0 Primary Care Provider: Reyna Hoff
--- NOTE | 2020-11-02 15:04 | ED.RN ---
Pt. brought in by , who is at bedside. Pt. requesting DNR status to be able to go home. states pt. has been saying, I want to at home. Pt. is currently not verbal. Does moan. This nurse asked pt. name and birthday. Pt. did not answer. Just continues to moan.
[2020-11-02 15:41] LABS: Absolute Lymphocyte Count 0.74 X10^3/uL (0.83-4.51); Absolute Neutrophil Count 26.4 X10^3/uL (2.0-7.7); Basophil# 0.04 X10^3/uL; Basophil% 0.1 % (0-1); Hematocrit 42.6 % (40-54); Hemoglobin 14.1 g/dL (13.0-16.5); Lymphocyte # 0.74 X10^3/ul (0.83-4.51); Lymphocyte % 2.4 % (19-41); Mean Corp Hgb Conc 33.1 g/dL (32-36); Mean Corpuscular Hgb 29.6 pg (27.0-32.0); Mean Corpuscular Volume 89.5 fL (80-94); Mean Platelet Vol. 10.6 fl (6.2-12.0); Monocyte# 2.76 X10^3/uL; Monocyte% 9.1 % (0-10); NRBC Flagged by Analyzer 0 % (0-5); Neutrophil # 26.38 X10^3/uL (2.7-7.7); Neutrophil % 87.2 % (47-70); POSITIVE COUNT YES; POSITIVE DIFFERENTIAL YES; Platelet Count 348 K/mm3 (150-450); RBC Distribution Width CV 15.2 % (11.6-14.6); RBC Distribution Width SD 50.4 fl (35.1-43.9); Red Blood Count 4.76 M/mm3 (4.6-6.2)
[2020-11-02 15:44] LABS: Differential Indicated SCAN CRITERIA MET; White Blood Count 30.3 K/mm3 (4.4-11.0)
[2020-11-02] MEDS: fentaNYL 100 MCG/2 ML Ampul 25 MCG IM (16:00)
[2020-11-02 16:05] LABS: Differential Comment SCANNED
[2020-11-02 16:20] LABS: Anion Gap 21 (5-15); BUN 121 mg/dL (7-18); BUN/Creat Ratio 18.7 RATIO (10-20); Calcium,Total 9.3 mg/dL (8.5-10.1); Chloride 100 mmol/L (98-107); Creatinine, Serum 6.46 mg/dL (0.70-1.30); EST Glomerular Filtration Rate 9 mL/min (>60); Est Glom Filt Rate - Afr Amer 11 mL/min (>60); Estimated Creatinine Clearance 7.15 ml/min; Glucose 148 mg/dL (74-106); Sodium Level 131 mmol/L (136-145)
--- NOTE | 2020-11-02 18:54 | ED.RN ---
Pt. attends changed, Eschar covering buttocks, both sides. Stage 2 pressure ulcer on scrotal area. fly was found in attends from home, as well as betweenbiig toe. . Pt. turned to side to receive pressure. Pillow placed under heels.
--- NOTE | 2020-11-02 19:15 | CM.ED ---
Addendum entered by Adelia Wade 11/02/20 20:43: SW was advised that patient was covid positive. SANTA spoke to Libby and advised that patient was covid positive. She said that they could take patient. Accepting MD is Dr. Gerri Velez and patient will be going to inpatient hospice at [facility]. Libby said that the H and P and covid test need to be faxed to her at [phone]. RN can call report at [phone] option 1. IP [facility] is located at [address] [place] [address] [place] [address]. SW received call from Libby at [facility]. She said said that IP had said that patient was coming ambulance. SANTA explained that per RN patient needed 6 people to get him to the cot this morning and thus he could not go via car. Libby said that they use [facility]. SANTA was present when CHICO Almazan gave report to [facility] gi technician. Plan: Inpatient hospice at [facility] in [place] Adeila PRITCHARD Original Note: SANTA Note Referral Source: adventure therapist Reason: Discharge planning SW was updated that patient's brought patient to the ED to have a DNR completed on patient. MD advised that patient would qualify for Hospice Services. SANTA reviewed chart and patient is from [facility]. SANTA called [facility] and spoke to Katina. Katina said that they have no Inpatient beds and also do not cover where patient resides in [facility]. Katina was not aware of individuals who provided hospice in [facility]. SANTA researched and found [facility] for [facility]. SANTA called and spoke to recreation instructorcall center director, Libby. SW made a referral to [facility]. RN spoke to Libby at [facility]. Libby said that they have inpatient beds. SW had patient's , Apple ROCHE speak to Libby and was in agreement to transfer to [place] where the [facility] IP beds are located. SANTA faxed referral packet to [phone]. Libby will review the packet with travel writer and call this travel writer back. [facility]
--- NOTE | 2020-11-02 21:31 | ED.RN ---
physicians called for transport 90- 2 hrs for transport
[2020-11-03 13:30] LABS: Pathologist Review Reviewed
== END 2020-11-02 23:10 | disposition hospice, inpatient (51) ==
PROVIDERS: Emergency Provider Student in an Organized Health Care Education/Training Program; PCP Family Medicine
DX: Z51.5 Encounter for palliative care (principal); D72.829 Elevated white blood cell count, unspecified; I12.0 Hypertensive chronic kidney disease with stage 5 chronic kidney disease or end stage renal disease; N18.6 End stage renal disease; J96.91 Respiratory failure, unspecified with hypoxia; R23.0 Cyanosis; Z93.3 Colostomy status; Z66 Do not resuscitate; Z79.82 Long term (current) use of aspirin
CPT/HCPCS: 36415; 80048; 85025; 87426; 96372; 99281